=== PATIENT | female | born 1945 | race Caucasian/White ===

== ENCOUNTER 2020-08-02 14:34 | Inpatient (IN) | payer MEDICARE, BC ==
[2020-08-02] MEDS ORDERED: SODIUM CHLORIDE 0.9% 500 ML 500 ML IV STA (15:26)
[2020-08-02] MEDS ORDERED: MORPHINE SULFATE 4 MG/ML SYRINGE IV STA (15:26)
--- NOTE | 2020-08-02 15:26 | ED ---
General Adult HPI - General Chief complaint: ENT Stated complaint: sent from for infected parotid gland Time Seen by Provider: 08/02/20 14:54 Source: patient Mode of arrival: wheelchair Limitations: no limitations - History of Present Illness Initial comments: Dictation was produced using eOriginal dictation software. please excuse any grammatical, word or spelling errors. This patient was cared for during a federal and state declared state of emergency secondary to Covid 19 Chief Complaint: 75-year-old feel presents with a right facial pain History of Present Illness: Is 75-year-old female presents to the emergency department for right facial pain. Patient states she began having symptoms 48 hours ago. The day before she began experiencing facial symptoms she had anesthesia for a D&C. She did contact her primary care physician and was told that she may have a parotid infection. Patient has history of sinus cancer. Sh e denies any constitutional symptoms. She was told to come to the emergency department be admitted for IV anti biotics. Patient has history of hypertension. 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 The ROS documented in this emergency department record has been reviewed and confirmed by me. Those systems with pertinent positive or negative responses have been documented in the HPI. All other systems are other negative and/or noncontributory. PHYSICAL EXAM: General Impression: Alert and oriented x3, not in acute distress HEENT: Normocephalic atraumatic, extra-ocular movements intact, pupils equal and reactive to light bilaterally, mucous membranes moist, diffuse swelling to the external auditory canal the right ear, she does have some pain over the mastoid process, there is induration and palpatory tenderness with erythema to the right proximal mandibular area. There is no buccal discharge. No oral pharyngeal erythema Cardiovascular: Heart regular rate and rhythm Chest: Able to complete full sentences, no retractions, no tachypnea Abdomen: abdomen soft, non-tender, non-distended, no organomegaly Musculoskeletal: Pulses present and equal in all extremities, no peripheral edema Motor: no focal deficits noted Neurological: CN II-XII grossly intact, no focal motor or sensory deficits noted Skin: Intact with no visualized rashes Psych: Normal affect and mood ED course: 75-year-old female presents to the emergency department for right facial pain suspicious for her otitis. vital signs upon arrival shows oxygen saturation 92%, rest of vital signs within acceptable limits. His examination shows well-appearing female in no acute distress. Laboratory evaluation shows leukocytosis of 13.9. Neutrophils of 11.4. Coag panel within acceptable limits. Metabolic panel is within acceptable limits. Patient does report chronic history of multiple intubations and tracheostomies. She states that when she needs to get intubated she needs an awake intubation. Computed tomography scan of brain is unremarkable. CT soft tissue of the neck shows findings consistent with parotitis. Radiologist also mentions an abnormal appearance to the hypopharyngeal airway including thickened epiglottis and abnormal prevertebral soft tissue. We'll just states that it's uncertain if this finding is related to the patient's surgical history or if this is infectious spread. This is likely be a chronic issue given patient's medical history. She was questioned about this states that she's been intermittent multiple times and required tracheostomies. She does not have any abnormal phonation. She is not showing any signs of distress. She denies any difficulty swallowing, she has no stridor. She denies any neck pain. I did discuss patient case with labor gang supervisor who does not feel patient meets criteria for ICU admission for airway monitoring. ENT and infectious disease will be consulted. EKG interpretation: Ventricular rate 83, normal sinus rhythm,. 162, QRS 82, QTc 434. No DE prolongation, no QTC prolongation, no ST or T-wave changes noted. Note EKG for comparison. Overall, this EKG is unremarkable - Related Data Home Medications Medication Instructions Recorded Confirmed Aspirin EC [Ecotrin Low Dose] 81 mg PO DAILY 08/02/20 08/02/20 Cholecalciferol [Vitamin D3 (25 50 mcg PO DAILY 08/02/20 08/02/20 Mcg = 1000 Iu)] Cranberry Fruit Extract [Cranberry] 500 mg PO HS 08/02/20 08/02/20 Escitalopram [Lexapro] 20 mg PO HS 08/02/20 08/02/20 Furosemide [Lasix] 40 mg PO DAILY 08/02/20 08/02/20 Potassium Chloride 10 meq PO DAILY 08/02/20 08/02/20 Selenium 100 mcg PO HS 08/02/20 08/02/20 Zinc 50 mg PO HS 08/02/20 08/02/20 amLODIPine [Norvasc] 5 mg PO DAILY 08/02/20 08/02/20 Allergies Allergy/AdvReac Type Severity Reaction Status Date / Time oxycodone AdvReac Nausea & Verified 08/02/20 16:26 Vomiting Review of Systems ROS Statement: Those systems with pertinent positive or pertinent negative responses have been documented in the HPI. ROS Other: All systems not noted in ROS Statement are negative. Past Medical History Past Medical History: Cancer, Hypertension Additional Past Medical History / Comment(s): sinus cavity cancer, skin cancer History of Any Multi-Drug Resistant Organisms: None Reported Past Surgical History: Section, Cholecystectomy Additional Past Surgical History / Comment(s): eye surgery Past Psychological History: Depression Smoking Status: Never smoker Past Alcohol Use History: None Reported Past Drug Use History: None Reported General Exam Limitations: no limitations Course Vital Signs 08/02/20 14:41 Temperature 98.5 F Pulse Rate 80 Respiratory 20 Rate Blood Pressure 181/77 O2 Sat by Pulse 92 L Oximetry Medical Decision Making - Lab Data Result diagrams: 08/02/20 15:18 08/02/20 15:18 Lab Results 08/02/20 08/02/20 08/02/20 Range/Units 15:18 15:18 15:18 WBC 13.9 H (3.8-10.6) k/uL RBC 5.16 (3.80-5.40) m/uL Hgb 15.3 (11.4-16.0) gm/dL Hct 49.1 H (34.0-46.0) % MCV 95.1 (80.0-100.0) fL MCH 29.6 (25.0-35.0) pg MCHC 31.1 (31.0-37.0) g/dL RDW 14.7 (11.5-15.5) % Plt Count 183 (150-450) k/uL MPV 8.1 Neutrophils % 82 % Lymphocytes % 10 % Monocytes % 5 % Eosinophils % 1 % Basophils % 0 % Neutrophils # 11.4 H (1.3-7.7) k/uL Lymphocytes # 1.4 (1.0-4.8) k/uL Monocytes # 0.8 (0-1.0) k/uL Eosinophils # 0.2 (0-0.7) k/uL Basophils # 0.0 (0-0.2) k/uL PT 10.2 (9.0-12.0) sec INR 0.9 (<1.2) APTT 20.6 L (22.0-30.0) sec Sodium 138 (137-145) mmol/L Potassium 4.6 (3.5-5.1) mmol/L Chloride 101 (98-107) mmol/L Carbon Dioxide 29 (22-30) mmol/L Anion Gap 8 mmol/L BUN 15 (7-17) mg/dL Creatinine 0.80 (0.52-1.04) mg/dL Est GFR (CKD-EPI)AfAm 83 (>60 ml/min/1.73 sqM) Est GFR (CKD-EPI)NonAf 72 (>60 ml/min/1.73 sqM) Glucose 109 H (74-99) mg/dL Calcium 9.1 (8.4-10.2) mg/dL Disposition Clinical Impression: Parotitis Disposition: ADMITTED IP TO THIS HOSP Condition: Fair Referrals: Len Tran MD [Primary Care Provider] - 1-2 days Decision Time: 17:57
[2020-08-02 15:34] LABS: Basophils % (A) 0 %; Eosinophils # (A) 0.2 k/uL (0-0.7); Eosinophils % (A) 1 %; HCT 49.1 % (34.0-46.0); HGB 15.3 gm/dL (11.4-16.0); Lymphocytes # (A) 1.4 k/uL (1.0-4.8); Lymphocytes % (A) 10 %; MCH 29.6 pg (25.0-35.0); MCHC 31.1 g/dL (31.0-37.0); MCV 95.1 fL (80.0-100.0); Mean Platelet Volume 8.1; Monocytes # (A) 0.8 k/uL (0-1.0); Monocytes % (A) 5 %; Neutrophils # (A) 11.4 k/uL (1.3-7.7); Neutrophils % (A) 82 %; Platelet Count 183 k/uL (150-450); RBC 5.16 m/uL (3.80-5.40); RDW 14.7 % (11.5-15.5); WBC 13.9 k/uL (3.8-10.6)
[2020-08-02 15:52] LABS: INR 0.9 (<1.2); Prothrombin Time 10.2 sec (9.0-12.0)
[2020-08-02 15:55] LABS: Partial Thromboplastin Time 20.6 sec (22.0-30.0)
[2020-08-02 15:57] LABS: Calcium 9.1 mg/dL (8.4-10.2); Potassium 4.6 mmol/L (3.5-5.1)
--- NOTE | 2020-08-02 16:48 | CT ---
EXAMINATION TYPE: CT brain wo con DATE OF EXAM: 08/02/2020 HISTORY: right side facial swelling, suspect parotid infection, headache. CT DLP: 1068 mGycm. Automated Exposure Control for Dose Reduction was Utilized. TECHNIQUE: CT scan of the head is performed without contrast. COMPARISON: None. FINDINGS: There is no acute intracranial hemorrhage or midline shift identified. There is mild diff use ventricular and sulcal prominence consistent with diffuse age-related cerebral atrophy. There is mild low-attenuation in the periventricular white matter consistent with chronic small vessel ischem ic change. There are left frontal craniotomy changes with multiple surgical clips from left parotid s urgical resection. Left globe and lateral an inferior caripo at the surgically resected. There is fat tissue presumed implanted tissue at this level noted. Defect or resection of superior orbital wall wi th encephalocele into the superior orbit remnant coronal image 20 noted. IMPRESSION: No acute intracranial hemorrhage or midline shift. There is mild diffuse age-related ce rebral atrophy and chronic small vessel ischemic change noted.
--- NOTE | 2020-08-02 16:56 | CT ---
EXAMINATION TYPE: CT soft tissue neck w con DATE OF EXAM: 08/02/2020 HISTORY: right side facial swelling COMPARISON: NONE CT DLP: 450.2 mGycm. Automated Exposure Control for Dose Reduction was Utilized. TECHNIQUE: CT scan of the neck is performed with IV Contrast, patient injected with 100 mL of Isovue 300, axial images are obtained, coronal and sagittal reformatted images are reviewed. FINDINGS: Airway: There is thickening of the epiglottis. There is abnormal prevertebral fluid and soft tissue c ausing anterior hypopharyngeal airway narrowing and deviation. Thyroid gland within normal limits. Zhanna ng apices are clear. Parotid/submandibular glands: Submandibular glands symmetric and within normal limits. Left parotid g land surgically absent with clips. Anterior fat tissue consistent with surgical implant noted. Right parotid gland shows enlargement with ill-defined fluid and fat stranding. There is mild to moderate f luid and fat stranding extending inferiorly into the submandibular region with additional involvement in the right supraclavicular region and upper thorax anteriorly noted. No well-formed fluid collecti on or abscess identified. Carotid/Vascular Structures: Tortuous medial retropharyngeal course to the bilateral carotid arteries . Moderate to severe calcified plaque at carotid bulb extends into proximal internal carotid arteries without significant stenosis clearly seen. Osseous Structures: Levoconvex scoliotic curvature. Severe multilevel spurring the beginning C5 level extending into the thoracic spine. Moderate multilevel disc space narrowing in the cervical spine. M ultilevel uncovertebral facet degenerative changes in the cervical spine. Other: Prior resection of the left maxilla along with left zygomatic arch with metallic prosthesis. R esection of left globe and majority orbital carpio. Suboptimal evaluation of level of mild due to artifact from numerous crowns and cavitary fillings. Zhanna cent area right mandible axilla measures 37 could reflect active dental infection and source of patie nt's right-sided inflammation as there is bony breakthrough noted. IMPRESSION: Right-sided parotitis along with anterior inferior soft tissue infection spread or cellul itis noted. Findings could be related due to right mandibular active inflammation likely from dental cavity. Correlate clinically. Abnormal appearance to the hypopharyngeal airway including thickened ep iglottis and abnormal prevertebral soft tissue swelling. Uncertain if finding is related to patient's surgical history or infectious spread. No well-formed fluid collection or drainable abscess noted.
[2020-08-02] MEDS ORDERED: AMPICILLIN-SULBACTAM 3 GM in SODIUM CHLORIDE 0.9% 100 ML IVPB STA (17:16)
[2020-08-02] MEDS ORDERED: VANCOMYCIN IV PER PHARMACY 1 EACH MISC MISCELLANE PRN (17:16)
[2020-08-02] MEDS ORDERED: ACETAMINOPHEN TAB 325 MG TAB PO PRN (17:25)
[2020-08-02] MEDS ORDERED: NALOXONE 0.4 MG/ML 1 ML VIAL IV PRN (17:25)
[2020-08-02] MEDS ORDERED: SODIUM CHLORIDE 0.9% 1,000 ML IV SCH (17:30)
[2020-08-02] MEDS ORDERED: DEXAMETHASONE SOD PHOSPHATE 10 MG/ML 1 ML VIAL IV STA (17:43)
[2020-08-02] MEDS ORDERED: VANCOMYCIN 2,000 MG in SODIUM CHLORIDE 0.9% 500 ML 500 ML IVPB ONE (17:45)
[2020-08-02] MEDS: IPRATROPIUM-ALBUTEROL 3 ML NEB INHALATION SCH ×2 (21:59→23:05)
[2020-08-02] MEDS ORDERED: methylPREDNISolone SOD SUCCI 40 MG/ML 1 ML VIAL IV STA (22:41)
[2020-08-02] MEDS: FUROSEMIDE 40 MG TAB PO SCH (22:45)
[2020-08-03] MEDS: IPRATROPIUM-ALBUTEROL 3 ML NEB INHALATION SCH ×4 (07:17→19:15)
[2020-08-03] MEDS ORDERED: VANCOMYCIN 2,000 MG in SODIUM CHLORIDE 0.9% 500 ML 500 ML IVPB SCH (08:00)
[2020-08-03] MEDS: FUROSEMIDE 40 MG TAB PO SCH (08:41)
[2020-08-03] MEDS: amLODIPine 5 MG TAB PO SCH (08:41)
[2020-08-03] MEDS ORDERED: DOXYCYCLINE 100 MG CAP PO SCH (09:00)
[2020-08-03] MEDS ORDERED: NAPROXEN 250 MG TAB PO STA (11:00)
[2020-08-03] MEDS ORDERED: CLINDAMYCIN 600 MG in DEXTROSE 5% IN WATER 50 ML IVPB SCH ×2 (12:00)
--- NOTE | 2020-08-03 12:31 | P.GSCN ---
History of Present Illness Consult date: 08/03/20 Reason for Consult: Right neck face swelling Requesting physician: Sebastian Salmon History of present illness: This is a 75-year-old female who developed right neck swelling last Thursday. She saw her primary care physician and was referred to clear and emergency room for evaluation and treatment. She points to the right parotid to the area of the swelling. He tells me that is quite tender to touch and the overlying areas erythematous. She has been relatively dehydrated. She has no signs of Covid. She's had extensive left maxillary and orbital surgery for malignancy. She's had over 20 surgeries and has had a maxillectomy and orbital exoneration on the left side. I did review the results of the patient's CAT scan demonstrating a left-sided facial prosthesis and middle insertions for the zygomatic arch from her multiple previous surgeries. The right parotid from the swollen. He did not see any dental abnormalities per CT report. Right parotid is quite swollen Computed tomography scan and the. Parotid area is quite edematous. Review of Systems - Constitutional Reports as per HPI - EENT EENT Comment(s): Multiple surgeries left face with orbital exoneration and maxillectomy. Eyes: bilateral as per HPI (Patient had a left-sided orbital exoneration and a left-sided maxillectomy.) - Cardiovascular Reports as per HPI - Respiratory Reports as per HPI - Gastrointestinal Reports as per HPI - Genitourinary Genitourinary: Reports as per HPI Menstruation: Reports as per HPI - Musculoskeletal Reports as per HPI - Integumentary Reports as per HPI - Neurological Reports as per HPI - Psychiatric Reports as per HPI - Endocrine Reports as per HPI - Hematologic/Lymphatic Reports as per HPI - Allergic/Immunologic Reports as per HPI Past Medical History Past Medical History: Cancer, Hypertension Additional Past Medical History / Comment(s): sinus cavity cancer, skin cancer, History of Any Multi-Drug Resistant Organisms: None Reported Past Surgical History: Section, Cholecystectomy Additional Past Surgical History / Comment(s): eye surgery, D&C on 07/30/20 Past Psychological History: Depression Smoking Status: Former smoker Past Alcohol Use History: None Reported Past Drug Use History: None Reported - Past Family History Mother Family Medical History: Cancer Additional Family Medical History / Comment(s): breast CA Medications and Allergies Home Medications Medication Instructions Recorded Confirmed Type Aspirin EC [Ecotrin Low Dose] 81 mg PO DAILY 08/02/20 08/02/20 History Cholecalciferol [Vitamin D3 (25 50 mcg PO DAILY 08/02/20 08/02/20 History Mcg = 1000 Iu)] Cranberry Fruit Extract [Cranberry] 500 mg PO HS 08/02/20 08/02/20 History Escitalopram [Lexapro] 20 mg PO HS 08/02/20 08/02/20 History Furosemide [Lasix] 40 mg PO DAILY 08/02/20 08/02/20 History Potassium Chloride 10 meq PO DAILY 08/02/20 08/02/20 History Selenium 100 mcg PO HS 08/02/20 08/02/20 History Zinc 50 mg PO HS 08/02/20 08/02/20 History amLODIPine [Norvasc] 5 mg PO DAILY 08/02/20 08/02/20 History Allergies Allergy/AdvReac Type Severity Reaction Status Date / Time oxycodone AdvReac Nausea & Verified 08/02/20 16:26 Vomiting Surgical - Exam Osteopathic Statement: *. No significant issues noted on an osteopathic structural exam other than those noted in the History and Physical/Consult. Vital Signs Temp Pulse Resp BP Pulse Ox 98.5 F 80 20 181/77 92 L 08/02/20 14:41 08/02/20 14:41 08/02/20 14:41 08/02/20 14:41 08/02/20 14:41 - General obese - Eyes Left orbital exoneration - ENT Patient has a large swollen and tender right parotid. She no signs of any secretions from Stensen's duct on the right side in an attempt to milk the gland. The patient has extensive left facial surgery with orbital exoneration and maxillectomy from a previous cancer. - Neck Shotty lymphadenopathy is palpable - Respiratory normal expansion, normal respiratory effort - Cardiovascular Rhythm: regular - Integumentary no rash - Neurologic normal coordination, normal sensation - Musculoskeletal normal gait, normal posture - Psychiatric oriented to time, oriented to person, oriented to place, speech is normal Results - Labs 08/02/20 15:18 08/03/20 06:37 Abnormal Lab Results - Last 24 Hours (Table) 08/02/20 08/02/20 08/02/20 Range/Units 15:18 15:18 15:18 WBC 13.9 H (3.8-10.6) k/uL Hct 49.1 H (34.0-46.0) % Neutrophils # 11.4 H (1.3-7.7) k/uL APTT 20.6 L (22.0-30.0) sec Glucose 109 H (74-99) mg/dL Diabetes panel 08/02/20 08/03/20 Range/Units 15:18 06:37 Sodium 138 (137-145) mmol/L Potassium 4.6 (3.5-5.1) mmol/L Chloride 101 (98-107) mmol/L Carbon Dioxide 29 (22-30) mmol/L BUN 15 (7-17) mg/dL Creatinine 0.80 0.88 (0.52-1.04) mg/dL Glucose 109 H (74-99) mg/dL Calcium 9.1 (8.4-10.2) mg/dL Calcium panel 08/02/20 Range/Units 15:18 Calcium 9.1 (8.4-10.2) mg/dL Pituitary panel 08/02/20 08/03/20 Range/Units 15:18 06:37 Sodium 138 (137-145) mmol/L Potassium 4.6 (3.5-5.1) mmol/L Chloride 101 (98-107) mmol/L Carbon Dioxide 29 (22-30) mmol/L BUN 15 (7-17) mg/dL Creatinine 0.80 0.88 (0.52-1.04) mg/dL Glucose 109 H (74-99) mg/dL Calcium 9.1 (8.4-10.2) mg/dL Adrenal panel 08/02/20 08/03/20 Range/Units 15:18 06:37 Sodium 138 (137-145) mmol/L Potassium 4.6 (3.5-5.1) mmol/L Chloride 101 (98-107) mmol/L Carbon Dioxide 29 (22-30) mmol/L BUN 15 (7-17) mg/dL Creatinine 0.80 0.88 (0.52-1.04) mg/dL Glucose 109 H (74-99) mg/dL Calcium 9.1 (8.4-10.2) mg/dL Assessment and Plan Plan: This patient has a right parotid infection from her relative dehydration state. I recommended that she increase her fluid consumption. Combination of Unasyn and vancomycin should work well for her and she tells me that she is already feeling slightly better after 1 dose of antibiotics. Dehydration appear to be the etiology for her parotitis. She is to drink more fluids. She is to continue on outpatient antibiotics after discharge and Augmentin would be a good choice. While in the hospital Unasyn and vancomycin is my preferred choice but will defer to infectious disease. She is to follow up with me in the office as needed. Time with Patient: Greater than 30
[2020-08-03] MEDS: ENOXAPARIN 40 MG/0.4 ML SYRINGE SQ SCH (12:54)
[2020-08-03] MEDS: SODIUM CHLORIDE 0.9% 1,000 ML IV SCH ×2 (12:55→17:29)
[2020-08-03] MEDS: NAPROXEN 250 MG TAB PO SCH ×2 (16:48→21:02)
[2020-08-03] MEDS: AMPICILLIN-SULBACTAM 3 GM in SODIUM CHLORIDE 0.9% 100 ML IVPB SCH (17:32)
[2020-08-03] MEDS ORDERED: NON FORMULARY DRUG (Selenium [Selenium] 100 MCG Tablet) PO SCH (21:00)
[2020-08-03] MEDS ORDERED: ESCITALOPRAM 20 MG TAB PO SCH (21:00)
[2020-08-03] MEDS ORDERED: ZINC SULFATE 220 MG CAP PO SCH (21:00)
--- NOTE | 2020-08-03 21:00 | P.HPIM ---
History of Present Illness H&P Date: 08/03/20 Chief Complaint: Swelling right face History of presenting complaint: This is a pleasant [address] Len Tran. Chronic stable medical conditions include hypertension, sinus cancer treated by Dr. Valdez and he noticed to [place] with radiation treatment initially in 1989. Patient is close to 19 surgeries last one being about 2 years ago. 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 Patient had a MRI in March 2020 that did not show any recurrence. Patient now presents with swelling of the area below the ear in the adjoining jaw for 4 days. Low-grade fever. Painful swelling. No trouble eating as such. Patient is given IV antibiotics in the ER arrest for this patient in the morning swelling discectomy started to come down. No headaches. No change in vision in the right eye. Review of systems: GEN.: Fever, tired EYES: Absence of left eye HEENT: As above NECK: None RESPIRATORY: None CARDIOVASCULAR: None GASTROINTESTINAL: None GENITOURINARY: None MUSCULOSKELETAL: Joint pains LYMPHATICS: None HEMATOLOGICAL: None PSYCHIATRY: None NEUROLOGICAL: Cannot see out of the left eye Past medical history to include: Hypertension, sinus cavity cancer with radiation treatment 1989 at least 19 surgeries last one being in 2 years ago. MRI in March 2020 was negative, depression Social history: Lives alone. Smoked a pack a day for 40 years stopped 20 years ago. No alcohol. Physical examination: VITAL SIGNS: 97.6, 68, 16, 143 x 67, 92% on 4 L GENERAL: BMI 42.7, laying in bed, awake. EYES: [Left eye is not present l. HEENT: External appearance of nose and ears normal, swelling over the angle of the right mandible tender, but signs of local inflammation. NECK: JVD not raised; masses not palpable. HEART: First and second heart sounds are normal; no edema. LUNGS: Respiratory rate normal; clear to auscultation. ABDOMEN: Soft, nontender, liver spleen not palpable, no masses palpable. PSYCH: Alert and oriented x3; mood and affect normal. NEUROLOGICAL: Cranial nerves grossly intact; no facial asymmetry, power and sensation grossly intact, patch over the left eye. LYMPHATICS: No lymph nodes palpable in the axilla and neck INVESTIGATIONS, reviewed in the clinical context: WBC 13.9 hemoglobin 15.3 platelets 183 potassium 4.6 creatinine 0.8 Coronavirus [PCR]: Not detected Assessment and plan: -Acute right parotitis, likely from dehydration, likely bacterial Patient currently on IV Unasyn. Naproxen as an anti-inflammatory 2. IV fluids. 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 Questions answered. IV antibiotics, IV fluids. Pain swelling is started to come down. Hopefully discharge in 24 hours Past Medical History Past Medical History: Cancer, Hypertension Additional Past Medical History / Comment(s): sinus cavity cancer, skin cancer, History of Any Multi-Drug Resistant Organisms: None Reported Past Surgical History: Section, Cholecystectomy Additional Past Surgical History / Comment(s): eye surgery, D&C on 07/30/20 Past Psychological History: Depression Smoking Status: Former smoker Past Alcohol Use History: None Reported Past Drug Use History: None Reported - Past Family History Mother Family Medical History: Cancer Additional Family Medical History / Comment(s): breast CA Medications and Allergies Home Medications Medication Instructions Recorded Confirmed Type Aspirin EC [Ecotrin Low Dose] 81 mg PO DAILY 08/02/20 08/02/20 History Cholecalciferol [Vitamin D3 (25 50 mcg PO DAILY 08/02/20 08/02/20 History Mcg = 1000 Iu)] Cranberry Fruit Extract [Cranberry] 500 mg PO HS 08/02/20 08/02/20 History Escitalopram [Lexapro] 20 mg PO HS 08/02/20 08/02/20 History Furosemide [Lasix] 40 mg PO DAILY 08/02/20 08/02/20 History Potassium Chloride 10 meq PO DAILY 08/02/20 08/02/20 History Selenium 100 mcg PO HS 08/02/20 08/02/20 History Zinc 50 mg PO HS 08/02/20 08/02/20 History amLODIPine [Norvasc] 5 mg PO DAILY 08/02/20 08/02/20 History Allergies Allergy/AdvReac Type Severity Reaction Status Date / Time oxycodone AdvReac Nausea & Verified 08/02/20 16:26 Vomiting Physical Exam Vitals: Vital Signs Temp Pulse Pulse Resp BP BP Pulse Ox 08/03/20 08:09 97.6 F 68 16 143/67 92 L 08/03/20 07:28 84 16 08/03/20 07:18 84 16 94 L 08/03/20 06:14 78 17 94 L 08/03/20 01:43 97.9 F 74 20 137/65 93 L 08/02/20 23:12 88 08/02/20 23:08 78 08/02/20 23:02 76 20 156/76 94 L 08/02/20 20:45 84 20 183/80 92 L 08/02/20 20:30 84 20 08/02/20 20:25 98.6 F 83 24 172/83 85 L 08/02/20 20:20 98.6 F 85 L 08/02/20 19:18 57 L 16 129/82 99 08/02/20 14:41 98.5 F 80 20 181/77 92 L Intake and Output 08/02/20 08/03/20 08/03/20 22:59 06:59 14:59 Intake Total 540 210 Output Total 800 Balance 540 -590 Intake: Intake, IV Titration 540 160 Amount Sodium Chloride 0.9% 1, 40 160 000 ml @ 20 mls/hr IV . Q24H [facility] Rx#:[id number] Vancomycin 2,000 mg In 500 Sodium Chloride 0.9% 500 ml 500 ml @ 167 mls/hr IVPB ONCE ONE Rx#: [id number] Oral 50 Output: Urine 800 Other: # Voids 1 1 Weight 116.4 kg Results CBC & Chem 7: 08/02/20 15:18 08/03/20 06:37 Labs: Abnormal Lab Results - Last 24 Hours (Table) 08/02/20 08/02/20 08/02/20 Range/Units 15:18 15:18 15:18 WBC 13.9 H (3.8-10.6) k/uL Hct 49.1 H (34.0-46.0) % Neutrophils # 11.4 H (1.3-7.7) k/uL APTT 20.6 L (22.0-30.0) sec Glucose 109 H (74-99) mg/dL Thrombosis Risk Factor Assmnt - Choose All That Apply Any of the Below Risk Factors Present?: Yes Each Risk Factor Represents 3 Points: Family history of DVT/PE Thrombosis Risk Factor Assessment Total Risk Factor Score: 3 Thrombosis Risk Factor Assessment Level: Moderate Risk
[2020-08-03] MEDS: methylPREDNISolone SOD SUCCI 40 MG/ML 1 ML VIAL IV SCH (21:02)
--- NOTE | 2020-08-03 22:31 | CONS ---
CONSULTATION DATE OF SERVICE: 08/03/2020 REASON FOR CONSULTATION: Right facial pain. HISTORY OF PRESENT ILLNESS: The patient is a 75-year-old female who started having a problem with right facial area pain, swelling and redness about 2 days before presentation to the hospital. The patient described the pain to be more sharp in nature with intensity almost 10/10; very severe with associated swelling and redness and feeling to the right side of the . The patient was evaluated by the primary care physician. With concern for parotitis, the patient was advised to go to the hospital. On presentation to the hospital the patient was afebrile. The patient did have a white count of 13.9 with a left shift. Creatinine was normal. Gomez PCR was negative. The patient did have a soft tissue neck CT with concern for right-sided parotitis along with anterior inferior soft tissue; infection spread or cellulitis noted. Findings could be related to a right mandibular active inflammation, likely from a dental cavity, but no drainable abscess. The patient was started on vancomycin and Unasyn, subsequently switched over to clindamycin. Infectious Disease was consulted for further management of antibiotic therapy. REVIEW OF SYSTEMS: Positive points have been mentioned in the HPI. Rest of the systems are negative. PAST MEDICAL HISTORY: Sinus cavity cancer, skin cancer, hypertension. PAST SURGICAL HISTORY: , cholecystectomy and eye surgery. SOCIAL HISTORY: No history of smoking, drinking or drug use. FAMILY HISTORY: No pertinent findings noticed. ALLERGIES: OXYCODONE. MEDICATIONS: The patient is currently on Tylenol, DuoNeb, Norvasc, clindamycin, Lovenox, Lexapro, Lasix, Solu-Medrol, Narcan, naproxen, zinc sulfate and IV fluid. PHYSICAL EXAMINATION: Blood pressure 110/68 with a pulse of 70, temperature 97.8. She is 93% on 2 L nasal cannula. General description is an elderly female lying in bed in no distress. HEENT: Examination shows right-sided parotid area swelling, induration, redness and warmth. RESPIRATORY SYSTEM: Unlabored breathing. Clear to auscultation anteriorly. HEART: S1, S2. Regular rate and rhythm. ABDOMEN: Soft. No tenderness. No guarding or rigidity. EXTREMITIES: No edema of the feet. SKIN EXAMINATION: No rash or mass palpable. Neurologically the patient is awake, alert, oriented x3. Mood and affect normal. LABS: Hemoglobin 15.3, white count of 13.9. BUN of 15, creatinine 0.8. CT report as mentioned above. DIAGNOSTIC IMPRESSION AND PLAN: Patient admitted to hospital with right-sided facial swelling and redness with evidence of parotitis and cellulitis. No evidence of any drainable abscess. More likely from the oral sangeeta of the oral cavity. Clinically doubt MRSA infection. PLAN: 1. Discontinue clindamycin. 2. Start the patient on Unasyn 3 grams q.6 hours. 3. We will follow clinical condition and culture to further adjust medication if needed. Thank you for this consultation. Will follow this patient along with you. MMODL / IJN: [id number] /
[2020-08-04] MEDS: NAPROXEN 250 MG TAB PO SCH (00:03)
[2020-08-04] MEDS: AMPICILLIN-SULBACTAM 3 GM in SODIUM CHLORIDE 0.9% 100 ML IVPB SCH ×3 (00:04→12:12)
[2020-08-04] MEDS: methylPREDNISolone SOD SUCCI 40 MG/ML 1 ML VIAL IV SCH ×2 (06:29→13:23)
[2020-08-04 09:07] VITALS: BP 167/80; RESP 20; TEMP 97.7
[2020-08-04] MEDS: amLODIPine 5 MG TAB PO SCH (09:07)
[2020-08-04] MEDS: FUROSEMIDE 40 MG TAB PO SCH (09:07)
[2020-08-04] MEDS: ENOXAPARIN 40 MG/0.4 ML SYRINGE SQ SCH (09:08)
[2020-08-04] MEDS: IPRATROPIUM-ALBUTEROL 3 ML NEB INHALATION SCH ×2 (09:34→11:49)
[2020-08-04 13:34] VITALS: PULSE 72
--- NOTE | 2020-08-04 23:51 | P.DS ---
Providers Date of admission: 08/02/20 17:25 Expected date of discharge: 08/04/20 Attending physician: Sebastian Salmon Consults: 08/02/20 17:24 Consult Physician Routine Consulting Provider: Fabian Cardenas Consult Reason/Comments: parotitis Do you want consulting provider notified?: Yes Consult Physician Routine Consulting Provider: Mary Bower Consult Reason/Comments: parotitis Do you want consulting provider notified?: Yes Primary care physician: Len [facility] Course: Chief Complaint: Swelling right face History of presenting complaint: This is a pleasant [address] Len Tran. Chronic stable medical conditions include hypertension, sinus cancer treated by Dr. Valdez and he noticed to [place] with radiation treatment initially in 1989. Patient is close to 19 surgeries last one being about 2 years ago. 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 Patient had a MRI in March 2020 that did not show any recurrence. Patient now presents with swelling of the area below the ear in the adjoining jaw for 4 days. Low-grade fever. Painful swelling. No trouble eating as such. Patient is given IV antibiotics in the ER arrest for this patient in the morning swelling discectomy started to come down. No headaches. No change in vision in the right eye. Admitted with acute parotitis. Given IV fluids IV Unasyn. Responded well. Seen by Dr. Loredo from ENT. An ID. Today: Doing much better. Pain swelling very significant improved. Eating well. No fever no chills. Care was discussed with the patient and daughter the bedside. Questions answered. Patient will finish her course of Augmentin. Consultation: Dr. Loredo from ENT Dr. Bower from ID Past medical history to include: Hypertension, sinus cavity cancer with radiation treatment 1989 at least 19 surgeries last one being in 2 years ago. MRI in March 2020 was negative, depression Social history: Lives alone. Smoked a pack a day for 40 years stopped 20 years ago. No alcohol. Physical examination: VITAL SIGNS: 97.6, 68, 16, 143 x 67, 92% on 4 L GENERAL: BMI 42.7, laying in bed, awake. EYES: [Left eye absent. HEENT: External appearance of nose and ears normal, much improved-swelling over the angle of the right mandible tender, NECK: JVD not raised; masses not palpable. HEART: First and second heart sounds are normal; no edema. LUNGS: Respiratory rate normal; clear to auscultation. ABDOMEN: Soft, nontender, liver spleen not palpable, no masses palpable. PSYCH: Alert and oriented x3; mood and affect normal. INVESTIGATIONS, reviewed in the clinical context: WBC 13.9 hemoglobin 15.3 platelets 183 potassium 4.6 creatinine 0.8 Coronavirus [PCR]: Not detected Assessment and plan: -Acute right parotitis, likely from dehydration, likely bacterial Patient currently on IV Unasyn. Naproxen as an anti-inflammatory 2. IV fluids. Patient seen by Dr. Loredo. 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 -Essential hypertension Continue with Norvasc -Depression Continue with Lexapro Disposition: Home Patient Condition at Discharge: Fair Plan - Discharge Summary Discharge Rx Participant: Yes New Discharge Prescriptions: New Budesonide/Formoterol Fumarate [Symbicort 80-4.5 Mcg Inhaler] 1 puff INHALATION BID #1 inhaler Albuterol Inhaler [Ventolin Hfa Inhaler] 1 puff INHALATION TID #1 puff Amoxic-Pot Clav 875-125Mg [Augmentin 875-125] 1 tab PO Q12HR #10 tab predniSONE 10 mg PO DAILY #30 tab Continue Zinc 50 mg PO HS Furosemide [Lasix] 40 mg PO DAILY Cholecalciferol [Vitamin D3 (25 Mcg = 1000 Iu)] 50 mcg PO DAILY Aspirin EC [Ecotrin Low Dose] 81 mg PO DAILY Cranberry Fruit Extract [Cranberry] 500 mg PO HS Selenium 100 mcg PO HS Potassium Chloride 10 meq PO DAILY amLODIPine [Norvasc] 5 mg PO DAILY Escitalopram [Lexapro] 20 mg PO HS Discharge Medication List Aspirin EC [Ecotrin Low Dose] 81 mg PO DAILY 08/02/20 [History] Cholecalciferol [Vitamin D3 (25 Mcg = 1000 Iu)] 50 mcg PO DAILY 08/02/20 [History] Cranberry Fruit Extract [Cranberry] 500 mg PO HS 08/02/20 [History] Escitalopram [Lexapro] 20 mg PO HS 08/02/20 [History] Furosemide [Lasix] 40 mg PO DAILY 08/02/20 [History] Potassium Chloride 10 meq PO DAILY 08/02/20 [History] Selenium 100 mcg PO HS 08/02/20 [History] Zinc 50 mg PO HS 08/02/20 [History] amLODIPine [Norvasc] 5 mg PO DAILY 08/02/20 [History] Albuterol Inhaler [Ventolin Hfa Inhaler] 1 puff INHALATION TID #1 puff 08/04/20 [Rx] Amoxic-Pot Clav 875-125Mg [Augmentin 875-125] 1 tab PO Q12HR #10 tab 08/04/20 [Rx] Budesonide/Formoterol Fumarate [Symbicort 80-4.5 Mcg Inhaler] 1 puff INHALATION BID #1 inhaler 08/04/20 [Rx] predniSONE 10 mg PO DAILY #30 tab 08/04/20 [Rx] Follow up Appointment(s)/Referral(s): Len Tran MD [Primary Care Provider] - 1-2 days Activity/Diet/Wound Care/Special Instructions: incentive spirometry - for home heart healthy diet as tolerated activity as tolerated Use incentive spirometery as instructed at home especially after using inhalers follow up with your Physician as directed. Call your Dr with return or worsening of the symptoms that brought you here or any concerns. Last received and respiratory treatment at about 1200. Last received steroid at 1:30pm Discharge Disposition: HOME SELF-CARE
--- NOTE | 2020-09-03 05:51 | CDI ---
Documentation Clarification Form Date: 09/03/2020 05:27:00 AM From: Marii Miranda Phone: If you have a question about this query, please contact Ruma Andrews, Booking Manager at [phone] between 8am and 5pm. Admit Date: 08/02/2020 05:25:00 PM Patient Name: Meliza Ness Visit Number: [id number] Discharge Date: 08/04/2020 01:48:00 PM ATTENTION: The Clinical Documentation Specialists (CDI) and [facility] Coding Staff appreciate your assistance in clarifying documentation. Please respond to the clarification below the line at the bottom and electronically sign. The CDI & [facility] Coding staff will review the response and follow-up if needed. Please note: Queries are made part of the Legal Health Record. If you have any questions, please contact the author of this message via ITS. Dr. Sebastian Salmon Patient has a documented BMI of 42.7. There is no documentation of obesity Additional clarification is requested. History/Risk Factors: Patient has history of malignant neoplasm nasal cavities Clinical Indicators: Patients weight is 116.4 kg Patients height is 5.5 inches Calculated BMI is 42.7 without an associated diagnosis Nutritional Education Dietary Consult Please clarify if patients BMI indicates an additional diagnosis: [ ] Overweight [ ] Obesity, Class 1 [ ] Obesity, Class 2 [ ] Morbid (Extreme) (severe) obesity [ ] No additional diagnosis/not clinically significant [ ] Other, please specify ____ [ ] Unable to determine Reference: NIH Classification for BMI Overweight BMI 2529.9 Obesity (Class 1) BMI 3034.9 Obesity (Class 2) BMI 3539.9 Morbid (Extreme) (severe) obesity BMI =40 _Morbid obesity BMI 42.7 MTDD
== END 2020-08-04 13:48 | disposition home or self-care (01) | DRG 155 ==
LOC: EC 14:34 → 6PED 17:25
PROVIDERS: ADMIT Hospitalist; ATTEND Hospitalist
DX: K11.21 Acute sialoadenitis (principal); Z68.41 Body mass index [BMI] 40.0-44.9, adult; E86.0 Dehydration; F32.9 Major depressive disorder, single episode, unspecified; I10 Essential (primary) hypertension; Z79.82 Long term (current) use of aspirin; Z79.899 Other long term (current) drug therapy; Z80.3 Family history of malignant neoplasm of breast; Z85.22 Personal history of malignant neoplasm of nasal cavities, middle ear, and accessory sinuses; Z85.828 Personal history of other malignant neoplasm of skin; Z87.891 Personal history of nicotine dependence; Z92.3 Personal history of irradiation; Z20.822 Contact with and (suspected) exposure to COVID-19; Z90.49 Acquired absence of other specified parts of digestive tract; Z90.01 Acquired absence of eye; Z90.09 Acquired absence of other part of head and neck; E66.01 Morbid (severe) obesity due to excess calories
CPT/HCPCS: 36415; 70450; 70491; 80048; 82565; 83605; 85025; 85610; 85730; 87040; 87635; 93005; 94640; 94760; 96361; 96374; 99285

== ENCOUNTER 2021-07-18 06:01 | Day surgery (SDC) | payer MEDICARE, BC ==
[2021-07-16 09:42] VITALS: BMI 41.5
[~2021-07-18 06:01] MED LIST: ALPRAZolam 0.25 MG TAB PO PRN; ALPRAZolam 0.5 MG TAB PO PRN; ASPIRIN 325 MG TAB PO ONE; HEPARIN SODIUM,PORCINE 10,000 UNIT in SODIUM CHLORIDE 0.9% 1,000 ML IRRIGATION PRN; HEPARIN SODIUM,PORCINE 2,500 UNIT in SODIUM CHLORIDE 0.9% 250 ML IRRIGATION PRN; NITROGLYCERIN SL TABS 0.4 MG TAB SUBLINGUAL PRN; SODIUM CHLORIDE 0.9% 1,000 ML in EMPTY BAG 1 BAG IV SCH
[2021-07-18] MEDS ORDERED: SODIUM CHLORIDE 0.9% 1,000 ML IV ONE (06:17)
[2021-07-18 06:48] LABS: Basophils % (A) 0 %; Eosinophils # (A) 0.2 k/uL (0-0.7); Eosinophils % (A) 4 %; HGB 17.7 gm/dL (11.4-16.0); Hypochromasia Slight; Lymphocytes # (A) 1.6 k/uL (1.0-4.8); Lymphocytes % (A) 25 %; MCH 30.5 pg (25.0-35.0); MCHC 31.2 g/dL (31.0-37.0); MCV 97.7 fL (80.0-100.0); Mean Platelet Volume 8.8; Monocytes # (A) 0.4 k/uL (0-1.0); Monocytes % (A) 6 %; Neutrophils % (A) 62 %; Platelet Count 176 k/uL (150-450); WBC 6.4 k/uL (3.8-10.6)
[2021-07-18 06:50] VITALS: TEMP 97.6
[2021-07-18 06:51] LABS: HCT 56.6 % (34.0-46.0)
[2021-07-18 07:12] LABS: Calcium 9.1 mg/dL (8.4-10.2)
[2021-07-18] MEDS ORDERED: VERAPAMIL 2.5 MG/ML 2 ML AMP ONE (07:16)
[2021-07-18] MEDS ORDERED: LIDOCAINE 1% INJ 10MG/ML (20 ML MDV) ONE (07:16)
[2021-07-18] MEDS ORDERED: fentaNYL (PF) 50 MCG/ML 2 ML AMP ONE (07:35)
[2021-07-18] MEDS ORDERED: MIDAZOLAM 2 MG/2 ML VIAL IV ONE (07:52)
[2021-07-18] MEDS ORDERED: fentaNYL (PF) 50 MCG/ML 2 ML AMP IV ONE (07:54)
[2021-07-18] MEDS ORDERED: LIDOCAINE 1% INJ 10MG/ML (20 ML MDV) SQ ONE (07:55)
[2021-07-18] MEDS ORDERED: VERAPAMIL SYRINGE (5 MG/10 ML) INTRAARTER ONE (08:00)
[2021-07-18] MEDS ORDERED: HEPARIN SODIUM 1,000 UN/ML (10ML VL) ONE (08:16)
[2021-07-18] MEDS ORDERED: HEPARIN SODIUM 1,000 UN/ML (10ML VL) IV ONE (08:21)
[2021-07-18 08:24] LABS: O2 Sat Blood Gas 86.1 %
[2021-07-18 08:28] LABS: O2 Sat Blood Gas 62.9 %
[2021-07-18] MEDS ORDERED: IOPAMIDOL-370 125ML BTL INJ ONE (08:28)
[2021-07-18 08:36] LABS: O2 Sat Blood Gas 65.9 %
[2021-07-18 15:42] VITALS: RESP 16
[2021-07-18 15:51] VITALS: BP 151/65; PULSE 60
--- NOTE | 2021-07-18 21:29 | P.CARDCATH ---
Description of Procedure: PROCEDURES PERFORMED: Left heart catheterization, right heart catheterization, bilateral coronary angiography INDICATION: Abnormal stress test, dyspnea, hypoxia CONSENT:I have discussed the risks, benefits and alternative therapies for the above-mentioned procedure and for both sedation/analgesia as well as necessary blood product administration, if indicated, as they pertain to this patient. The patient has indicated understanding and acceptance of the risks and procedures discussed. PROCEDURE: After the risks, benefits and alternatives of the above mentioned procedure explained in detail with the patient, informed consent was obtained. Patient was taken to the catheterization lab and prepped and draped in usual fashion. 1% lidocaine was used to anesthetize the right radial artery. A 6- Luxembourgish sheath was placed in the right radial artery using modified Seldinger technique. A 6Fr sheath was placed in the right brachial vein using modified Seldinger technique and ultrasound. Right heart catheterization was performed by advancing a 6Fr Winona Tone catheter into the RA, RV, PA, PCWP positions. RA and PA oxygen saturations were drawn. Thermodilution was peformed. The Winona Tone catheter was removed. Left coronary angiography was performed with a 5- Luxembourgish JL 3.5 catheter and right coronary angiography was performed with a 6- Luxembourgish AR2 catheter in various views. A 5-Luxembourgish FR5 catheter was inserted into the left ventricle and pressure measurements were obtained. The right radial sheath was removed and a TR band was placed with hemostasis achieved. The right brachial sheath was pulled with manual pressure. The patient tolerated the procedure well. Patient was transported back to the post catheterization holding area in stable condition. Conscious Sedation: Patient was monitored under the direct supervision of vision of myself for conscious sedation using Versed and fentanyl for a total duration of 54 minutes HEMODYNAMICS: Ao: 128/57 RA: 6 RV: 60/2 PA: 58/17 (MAP: 33) PCWP: 11 LV: 142/12, LVEDP 14 RA oxygen sat: 66% PA oxygen sat:63% Right radial oxygen sat: 86% CO by GELACIO: 6.8 L/min CI by GELACIO: 3.1 L/min/m2 CO by thermodilution: 8.1 L/min CI by thermodiltion: 3.7 L/min/m2 SELECTIVE CORONARY ARTERIOGRAPHY: LEFT MAIN: The left main is a large caliber vessel which bifurcates into the LAD and circumflex. There is no significant stenosis. LEFT ANTERIOR DESCENDING CORONARY ARTERY: LAD is a large caliber vessel which wraps around to the apex. There is no significant stenosis. LEFT CIRCUMFLEX CORONARY ARTERY: Left circumflex is a large caliber vessel without significant stenosis and gives off the PDA and is dominant. RIGHT CORONARY ARTERY: The right coronary artery is a small caliber vessel which is nondominant and gives off a marginal branch. There is no significant stenosis. FINAL IMPRESSION: 1. Normal coronary arteries as described above. 2. Normal left and right sided filling pressures 3. 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 Normal cardiac output. PLAN: 1. Aggressive risk factor modification per most recent ACC/AHA guidelines. 2. Treat underlying hypoxia. 3. Follow-up in the office in 1-2 weeks.
== END 2021-07-18 13:03 | disposition home or self-care (01) ==
LOC: CATHCVL 06:01
PROVIDERS: ATTEND Internal Medicine
DX: R06.00 Dyspnea, unspecified (principal); R09.02 Hypoxemia; R94.39 Abnormal result of other cardiovascular function study; I27.23 Pulmonary hypertension due to lung diseases and hypoxia; I11.0 Hypertensive heart disease with heart failure; I50.32 Chronic diastolic (congestive) heart failure; Z20.822 Contact with and (suspected) exposure to COVID-19; R60.0 Localized edema; Z85.22 Personal history of malignant neoplasm of nasal cavities, middle ear, and accessory sinuses; Z72.0 Tobacco use; Z79.899 Other long term (current) drug therapy
CPT/HCPCS: 93460; 80048; 85018; 82810; 85025; 87635; C1769; C1894; C1751; J2250; J2001; J3010; J1644; Q9967

== ENCOUNTER 2021-09-19 17:40 | Inpatient (IN) | payer MEDICARE, BC ==
[2021-09-19] MEDS ORDERED: DEXAMETHASONE SOD PHOSPHATE 10 MG/ML 1 ML VIAL IV STA (18:13)
--- NOTE | 2021-09-19 18:16 | ED ---
General Adult HPI - General Chief complaint: Shortness of Breath Stated complaint: low oxygen, weakness Time Seen by Provider: 09/19/21 18:04 Source: patient Mode of arrival: wheelchair Limitations: no limitations - History of Present Illness Initial comments: Dictation was produced using [employer] dictation software. please excuse any grammatical, word or spelling errors. Chief Complaint: 76-year-old female presents to the emergency Department for hypoxia and dyspnea History of Present Illness: 76-year-old female she has past medical history of sinus cancer, hypertension. Daughter is at the bedside provides most of the history of present illness. She reports that over the last 7 days patient's breathing status became slightly worse. Patient denies any chest pain. She does feel short of breath. She was seen at primary care physician's office where she was found to be hypoxic with measurements in the 4050% on room air. Patient does not rely on supplemental oxygen at home. Patient has history of tracheal procedure. She is in 7 days without an echo in relation medications. She denies any fever constitutional symptoms. No chest pain. Patient feels like her legs are slightly more swollen than usual. She has had recently traveled to [facility] within the last week. She seen her primary care physician's office. Dr. Tran contacted us and told us that patient would be coming to the emergency department via private vehicle. In the office she was hypoxic for refused EMS transfer. We're also notified by PCP the patient cyanotic. The ROS documented in this emergency department record has been reviewed and confirmed by me. Those systems with pertinent positive or negative responses have been documented in the HPI. All other systems are other negative and/or noncontributory. PHYSICAL EXAM: General Impression: Alert and oriented x3, not in acute distress, cyanotic HEENT: Normocephalic atraumatic, extra-ocular movements intact, pupils equal and reactive to light bilaterally, mucous membranes moist. Cardiovascular: Heart regular rate and rhythm Chest: Able to complete full sentences, no retractions, no tachypnea, diffuse lung crackles Abdomen: abdomen soft, non-tender, non-distended, no organomegaly Musculoskeletal: Pulses present and equal in all extremities, no peripheral edema Motor: no focal deficits noted Neurological: CN II-XII grossly intact, no focal motor or sensory deficits noted Skin: Intact with no visualized rashes Psych: Normal affect and mood ED course: 76-year-old female presents emergency department for shortness of breath, hypoxia and cyanosis as upon arrival shows respiratory of 26, O2 saturation of 52% on room air, rest of vital signs within acceptable limits. Patient appears to be happy hypoxic. Patient's oxygenation improved with 15 L nonrebreather. ABG was attempted by respiratory therapist however patient did not tolerate the needle sticks very well and refused any more attempts. Laboratory evaluation obtained. CBC shows no leukocytosis. Hemoglobin is 16.7. Coag panel is unremarkable. D-dimer is 1.93. Metabolic panel is within acceptable limits. Troponin is 0.050. 4 panel viral PCR is negative for influenza, COVID-19 and RSV. Chest x-ray shows findings suggestive of cardiomegaly pulmonary vascular congestion. CT of the chest was obtained due to elevated d-dimer showing no evidence of pulmonary embolism. Does appear to be lower lobe pulmonary infiltrates and atelectasis. Radiology also suggests some degree of diaphragmat ic paralysis. She is reevaluated after bedside after having been given several minutes of BiPAP with stable medical condition. There was some evidence of infiltrate on the CT. Patient administered ceftriaxone and azithromycin. Patient be admitted to step down unit with consultation to cardiology and pulmonology. Patient will be admitted to Dr. Salmon's service. EKG interpretation: Ventricular rate 70, sinus rhythm,. 157, QS 97, QTc [address] prolongation, no QTC prolongation, no ST or T-wave changes noted. EKG compared to August 02 2020 showing no changes. Overall, this EKG is unremarkable - Related Data Home Medications Medication Instructions Recorded Confirmed Aspirin EC [Ecotrin Low Dose] 81 mg PO DAILY 08/02/20 09/19/21 Cholecalciferol [Vitamin D3 (25 50 mcg PO DAILY 08/02/20 09/19/21 Mcg = 1000 Iu)] Escitalopram [Lexapro] 20 mg PO HS 08/02/20 09/19/21 Selenium 200 mcg PO HS 08/02/20 09/19/21 Berderine Supplement 1,000 mg PO DAILY 07/16/21 09/19/21 Metoprolol Succinate (ER) [Toprol 25 mg PO DAILY 07/16/21 09/19/21 Xl] Cranberry(Unknown) 1 tab PO DAILY 09/19/21 09/19/21 Allergies Allergy/AdvReac Type Severity Reaction Status Date / Time oxycodone AdvReac Nausea & Verified 09/19/21 19:57 Vomiting Review of Systems ROS Statement: Those systems with pertinent positive or pertinent negative responses have been documented in the HPI. ROS Other: All systems not noted in ROS Statement are negative. Past Medical History Past Medical History: Cancer, Hypertension Additional Past Medical History / Comment(s): SOB with activity,sinus cavity cancer, skin cancer History of Any Multi-Drug Resistant Organisms: None Reported Past Surgical History: Section, Cholecystectomy Additional Past Surgical History / Comment(s): eyelid surgery, D&C on 07/30/20,3 emergency trachea proceduresx3,sinus cavity CA removal x17 Past Anesthesia/Blood Transfusion Reactions: Previous Problems w/ Anesthesia Additional Past Anesthesia/Blood Transfusion Reaction / Comment(s): Difficult intubation-states "had emergency trachea with post intubation x3-wind pipe closes",has no letter from anesthesia Past Psychological History: Depression Smoking Status: Former smoker Past Alcohol Use History: None Reported Past Drug Use History: None Reported - Past Family History Mother Family Medical History: Cancer Daughter(s) Family Medical History: Cancer Additional Family Medical History / Comment(s): 2 dtrs had breast CA General Exam Limitations: no limitations Course Vital Signs 09/19/21 09/19/21 09/19/21 17:47 18:25 18:29 Temperature 98.1 F Pulse Rate 76 73 Respiratory 26 H 19 20 Rate Blood Pressure 130/60 170/89 O2 Sat by Pulse 53 L 97 Oximetry Fraction of 100 Inspired Oxygen (FIO2) 09/19/21 09/19/21 09/19/21 19:05 20:00 22:00 Temperature Pulse Rate 70 77 Respiratory 20 22 Rate Blood Pressure 169/89 171/85 O2 Sat by Pulse 97 90 L Oximetry Fraction of 100 Inspired Oxygen (FIO2) Medical Decision Making - Lab Data Result diagrams: 09/19/21 18:23 09/19/21 18:23 Lab Results 09/19/21 09/19/21 09/19/21 Range/Units 18:23 18:23 18:23 WBC 8.3 (3.8-10.6) k/uL RBC 5.69 H (3.80-5.40) m/uL Hgb 16.7 H (11.4-16.0) gm/dL Hct 58.1 H* (34.0-46.0) % MCV 102.1 H (80.0-100.0) fL MCH 29.4 (25.0-35.0) pg MCHC 28.8 L (31.0-37.0) g/dL RDW 15.5 (11.5-15.5) % Plt Count 203 (150-450) k/uL MPV 8.8 Neutrophils % 78 % Lymphocytes % 13 % Monocytes % 7 % Eosinophils % 0 % Basophils % 1 % Neutrophils # 6.4 (1.3-7.7) k/uL Lymphocytes # 1.1 (1.0-4.8) k/uL Monocytes # 0.6 (0-1.0) k/uL Eosinophils # 0.0 (0-0.7) k/uL Basophils # 0.1 (0-0.2) k/uL Hypochromasia Marked Macrocytosis Slight PT (9.0-12.0) sec INR (<1.2) APTT (22.0-30.0) sec D-Dimer (<0.60) mg/L FEU Sodium 141 (137-145) mmol/L Potassium 5.0 (3.5-5.1) mmol/L Chloride 103 (98-107) mmol/L Carbon Dioxide 30 (22-30) mmol/L Anion Gap 8 mmol/L BUN 49 H (7-17) mg/dL Creatinine 1.16 H (0.52-1.04) mg/dL Est GFR (CKD-EPI)AfAm 53 (>60 ml/min/1.73 sqM) Est GFR (CKD-EPI)NonAf 46 (>60 ml/min/1.73 sqM) Glucose 123 H (74-99) mg/dL Plasma Lactic Acid Jimmie (0.7-2.0) mmol/L Calcium 8.4 (8.4-10.2) mg/dL Magnesium 2.3 (1.6-2.3) mg/dL Total Bilirubin 0.5 (0.2-1.3) mg/dL AST 56 H (14-36) U/L ALT 80 H (4-34) U/L Alkaline Phosphatase 102 (38-126) U/L Troponin I (0.000-0.034) ng/mL Total Protein 7.5 (6.3-8.2) g/dL Albumin 4.0 (3.5-5.0) g/dL Influenza Type A (PCR) Not Detected (Not Detectd) Influenza Type B (PCR) Not Detected (Not Detectd) RSV (PCR) Not Detected (Not Detectd) SARS-CoV-2 (PCR) Not Detected (Not Detectd) 09/19/21 09/19/21 09/19/21 Range/Units 18:23 18:23 18:52 WBC (3.8-10.6) k/uL RBC (3.80-5.40) m/uL Hgb (11.4-16.0) gm/dL Hct (34.0-46.0) % MCV (80.0-100.0) fL MCH (25.0-35.0) pg MCHC (31.0-37.0) g/dL RDW (11.5-15.5) % Plt Count (150-450) k/uL MPV Neutrophils % % Lymphocytes % % Monocytes % % Eosinophils % % Basophils % % Neutrophils # (1.3-7.7) k/uL Lymphocytes # (1.0-4.8) k/uL Monocytes # (0-1.0) k/uL Eosinophils # (0-0.7) k/uL Basophils # (0-0.2) k/uL Hypochromasia Macrocytosis PT 11.0 (9.0-12.0) sec INR 1.0 (<1.2) APTT 26.2 (22.0-30.0) sec D-Dimer 1.93 H (<0.60) mg/L FEU Sodium (137-145) mmol/L Potassium (3.5-5.1) mmol/L Chloride (98-107) mmol/L Carbon Dioxide (22-30) mmol/L Anion Gap mmol/L BUN (7-17) mg/dL Creatinine (0.52-1.04) mg/dL Est GFR (CKD-EPI)AfAm (>60 ml/min/1.73 sqM) Est GFR (CKD-EPI)NonAf (>60 ml/min/1.73 sqM) Glucose (74-99) mg/dL Plasma Lactic Acid Jimmie 1.6 (0.7-2.0) mmol/L Calcium (8.4-10.2) mg/dL Magnesium (1.6-2.3) mg/dL Total Bilirubin (0.2-1.3) mg/dL AST (14-36) U/L ALT (4-34) U/L Alkaline Phosphatase (38-126) U/L Troponin I 0.050 H* (0.000-0.034) ng/mL Total Protein (6.3-8.2) g/dL Albumin (3.5-5.0) g/dL Influenza Type A (PCR) (Not Detectd) Influenza Type B (PCR) (Not Detectd) RSV (PCR) (Not Detectd) SARS-CoV-2 (PCR) (Not Detectd) Critical Care Time Critical Care Time: Yes Total Critical Care Time: 33 Disposition Clinical Impression: Respiratory failure, unspecified with hypoxia Disposition: ADMITTED IP TO THIS [facility] Condition: Serious Referrals: Len Tran MD [Primary Care Provider] - 1-2 days Decision Time: 22:36
[2021-09-19 18:39] LABS: Basophils # (A) 0.1 k/uL (0-0.2); Basophils % (A) 1 %; Eosinophils % (A) 0 %; HGB 16.7 gm/dL (11.4-16.0); Hypochromasia Marked; Lymphocytes # (A) 1.1 k/uL (1.0-4.8); Lymphocytes % (A) 13 %; MCH 29.4 pg (25.0-35.0); MCHC 28.8 g/dL (31.0-37.0); MCV 102.1 fL (80.0-100.0); Macrocytosis Slight; Mean Platelet Volume 8.8; Monocytes # (A) 0.6 k/uL (0-1.0); Monocytes % (A) 7 %; Neutrophils # (A) 6.4 k/uL (1.3-7.7); Neutrophils % (A) 78 %; Platelet Count 203 k/uL (150-450); RBC 5.69 m/uL (3.80-5.40); RDW 15.5 % (11.5-15.5); WBC 8.3 k/uL (3.8-10.6)
[2021-09-19 18:49] LABS: HCT 58.1 % (34.0-46.0)
[2021-09-19 18:51] LABS: Calcium 8.4 mg/dL (8.4-10.2); Magnesium 2.3 mg/dL (1.6-2.3); Total Bilirubin 0.5 mg/dL (0.2-1.3); Total Protein 7.5 g/dL (6.3-8.2)
--- NOTE | 2021-09-19 19:04 | XR ---
EXAMINATION TYPE: XR chest 1V portable DATE OF EXAM: 09/19/2021 6:12 PM COMPARISON: None TECHNIQUE: XR chest 1V portable Frontal view of the chest. CLINICAL INDICATION:Female, 76 years old with history of hypoxia; FINDINGS: Lungs/Pleura: There is no evidence of pleural effusion, focal consolidation, or pneumothorax. Pulmonary vascularity: Pulmonary vascular congestion. Heart/mediastinum: Cardiomediastinal silhouette is enlarged and stable. Musculoskeletal: No acute osseous pathology. IMPRESSION: Cardiomegaly and mild pulmonary vascular congestion. Correlate with BNP for congestive heart failure. Superimposed infection is not entirely excluded.
[2021-09-19 20:28] LABS: Partial Thromboplastin Time 26.2 sec (22.0-30.0)
[2021-09-19] MEDS ORDERED: FUROSEMIDE 10 MG/ML 4 ML VIAL IV STA (22:25)
--- NOTE | 2021-09-19 22:30 | CT ---
EXAMINATION TYPE: CT angio chest DATE OF EXAM: 09/19/2021 COMPARISON: None HISTORY: SOB CT DLP: 889.2 mGycm Automated exposure control for dose reduction was used. CONTRAST: Performed with IV Contrast, patient injected with 80 mL of Isovue 370. Exam from the thoracic inlet to the diaphragm with IV contrast. There are Three-D postprocessed image s. There is coarse infiltrate and atelectasis in the posterior lung brown. There is collection density at the lung bases. Heart appears slightly enlarged. There is no pericardial effusion. There is some e levation of the right diaphragm. There are large pulmonary arteries. No evidence of filling defect. There are no hilar masses. No medi astinal adenopathy. Thoracic aorta appears intact. No dissection. The ascending aorta measures 3.5 cm . The thoracic spine is intact. No compression fracture. The sternum is intact. There is multilevel t horacic spondylotic changes with osteophyte formation. IMPRESSION: No evidence of pulmonary embolism. Cardiomegaly. Lower lobe pulmonary infiltrates and atelectasis. Elevated right diaphragm could relate to some diaphragm paralysis.
[2021-09-19] MEDS ORDERED: AZITHROMYCIN 500 MG in SODIUM CHLORIDE 0.9% 250 ML IVPB STA (22:31)
[2021-09-19 22:53] LABS: ABG HCO3 31 mmol/L (21-25); ABG Oxygen Saturation 93.5 % (94-97); ABG PO2 92 mmHg (83-108); ABG TCO2 34 mmol/L (19-24); Allen Test Performed? Yes
[2021-09-19] MEDS: NITROGLYCERIN OINT 1 INCH/GM PACKET TOPICAL SCH (22:54)
[2021-09-19] MEDS: FUROSEMIDE 10 MG/ML 4 ML VIAL IV SCH (22:54)
[2021-09-19] MEDS ORDERED: IPRATROPIUM-ALBUTEROL 3 ML NEB INHALATION STA (23:03)
[2021-09-19 23:09] LABS: ABG PCO2 98 mmHg (35-45)
[2021-09-20 08:13] LABS: ABG Base Excess 3.2 mmol/L; ABG HCO3 32 mmol/L (21-25); ABG Oxygen Saturation 87.1 % (94-97); ABG TCO2 35 mmol/L (19-24); Allen Test Performed? Yes
[2021-09-20 08:16] LABS: ABG PCO2 88 mmHg (35-45); ABG PH 7.17 (7.35-7.45); ABG PO2 57 mmHg (83-108)
[2021-09-20] MEDS: NITROGLYCERIN OINT 1 INCH/GM PACKET TOPICAL SCH (09:18)
[2021-09-20] MEDS ORDERED: ASPIRIN 81 MG PO SCH (10:00)
[2021-09-20] MEDS ORDERED: ENOXAPARIN 40 MG/0.4 ML SYRINGE SQ SCH (10:00)
[2021-09-20] MEDS: FUROSEMIDE 10 MG/ML 4 ML VIAL IV SCH ×2 (10:23→22:19)
[2021-09-20] MEDS: METOPROLOL SUCCINATE (ER) 25 MG TAB.ER.24H PO SCH ×2 (10:30→10:38)
[2021-09-20] MEDS ORDERED: IPRATROPIUM-ALBUTEROL 3 ML NEB INHALATION PRN (11:25)
--- NOTE | 2021-09-20 11:27 | P.CNPUL ---
History of Present Illness Consult date: 09/20/21 Requesting physician: Sebastian Salmon Reason for consult: dyspnea, hypoxemia, pleural effusion, abnormal CXR/CT Chief complaint: Respiratory distress. History of present illness: Pulmonary consult dated 09/20/2021. This is a 76-year-old female who was seen in the emergency room, for shortness of breath. The patient apparently has a history of hypertension, and came to the emergency department complaining of increasing shortness of breath for about 7 days prior to her visit in the ER. There was no chest pain. The patient was seen in the ER, and placed on BiPAP. I was called by the ER physician, for further instructions. The patient had a very abnormal initial blood gas. The patient currently is on saline at KVO, BiPAP, with settings of 16/5, and 60%, and her saturations were 90% on those settings. A repeat blood gas showed a pO2 of 57, pCO2 of 88, and a pH is 7.17. Initial blood gases showed a pO2 of 92, a pCO2 of 98, and a pH is 7.10. I did tell the ER doctor, to make sure the patient received just enough oxygen, so saturations were in the 85-90% range. The patient will be transferred to the intensive care unit for further monitoring and management. Her white count was 8.3, hemoglobin 16.7, hematocrit 58.1, with a normal platelet count. D-dimer was 1.93. Sodium 141, potassium 5, chlorides 103, CO2 30, BUN 49, creatinine 1.16. AST was 56, ALT 80, and troponin was 0.050. N-terminal proBNP was 5350. Chest x-ray was consistent with cardiomegaly and CHF. CT angiogram was negative for pulmonary embolism, and did show changes that were consistent with CHF. 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 She was a former smoker. Review of Systems REVIEW OF SYSTEMS: CONSTITUTIONAL: [Negative.] NEUROLOGIC: [ Negative.] HEENT: [ Negative.] CARDIAC: Shortness of breath 7 days. PULMONARY: Shortness of breath 7 days. GI: [Negative.] : [Negative.] RHEUMATOLOGIC: [ Negative.] IMMUNOLOGIC: [ Negative.] ENDOCRINE: [Negative. ] DERMATOLOGIC: [Negative.] Past Medical History Past Medical History: Cancer, Hypertension Additional Past Medical History / Comment(s): SOB with activity,sinus cavity cancer, skin cancer History of Any Multi-Drug Resistant Organisms: None Reported Past Surgical History: Section, Cholecystectomy Additional Past Surgical History / Comment(s): eyelid surgery, D&C on 07/30/20,3 emergency trachea proceduresx3,sinus cavity CA removal x17 Past Anesthesia/Blood Transfusion Reactions: Previous Problems w/ Anesthesia Additional Past Anesthesia/Blood Transfusion Reaction / Comment(s): Difficult intubation-states "had emergency trachea with post intubation x3-wind pipe closes",has no letter from anesthesia Past Psychological History: Depression Smoking Status: Former smoker Past Alcohol Use History: None Reported Past Drug Use History: None Reported - Past Family History Mother Family Medical History: Cancer Daughter(s) Family Medical History: Cancer Additional Family Medical History / Comment(s): 2 dtrs had breast CA Medications and Allergies Home Medications Medication Instructions Recorded Confirmed Type Aspirin EC [Ecotrin Low Dose] 81 mg PO DAILY 08/02/20 09/19/21 History Cholecalciferol [Vitamin D3 (25 50 mcg PO DAILY 08/02/20 09/19/21 History Mcg = 1000 Iu)] Escitalopram [Lexapro] 20 mg PO HS 08/02/20 09/19/21 History Selenium 200 mcg PO HS 08/02/20 09/19/21 History Berderine Supplement 1,000 mg PO DAILY 07/16/21 09/19/21 History Metoprolol Succinate (ER) [Toprol 25 mg PO DAILY 07/16/21 09/19/21 History Xl] Cranberry(Unknown) 1 tab PO DAILY 09/19/21 09/19/21 History Allergies Allergy/AdvReac Type Severity Reaction Status Date / Time oxycodone AdvReac Nausea & Verified 09/19/21 19:57 Vomiting Physical Exam Osteopathic Statement: *. No significant issues noted on an osteopathic structural exam other than those noted in the History and Physical/Consult. Vitals: Vital Signs Temp Pulse Resp BP Pulse Ox FiO2 09/20/21 10:34 66 20 107/63 91 L 09/20/21 09:15 60 20 116/61 89 L 09/20/21 08:41 86 L 09/20/21 07:39 61 20 108/60 90 L 09/20/21 06:46 70 06/03/22 06:13 75 25 H 125/62 88 L 09/20/21 05:04 71 22 115/70 87 L 09/20/21 02:54 70 09/20/21 02:27 65 22 125/68 90 L 09/20/21 00:44 65 17 109/60 88 L 09/20/21 00:00 64 24 102/61 97 09/19/21 23:23 66 80 09/19/21 23:16 68 09/19/21 23:07 100 09/19/21 23:00 73 20 171/85 92 L 09/19/21 22:00 77 22 171/85 90 L 09/19/21 20:00 70 20 169/89 97 09/19/21 19:05 100 09/19/21 18:29 20 09/19/21 18:25 73 19 170/89 97 100 09/19/21 17:47 98.1 F 76 26 H 130/60 53 L Intake and Output 09/19/21 09/20/21 09/20/21 22:59 06:59 14:59 Other: Weight 117.934 kg Mild respiratory distress, with mild conversational dyspnea. BiPAP mask in place. HEENT examination is grossly unremarkable. Neck supple. Full range of motion. No adenopathy thyromegaly or neck vein distention. Cardiovascular examination reveals regular rhythm rate. S1-S2 normal. No S3 or S4. No discernible murmur noted. Heart sounds are distant. Heart rate 66 bpm. Lungs reveal diffuse rhonchi and crackles. Breath sounds equal. She is not taking deep breaths. No wheezes. Saturations are between 89 and 91%. Abdomen is obese, without bowel sounds. No tenderness. Extremities reveal lower extremity edema, 1+. No cyanosis or clubbing. Skin reveals chronic venous stasis changes to the lower extremities. Neurologic examination is brief but nonfocal. Results - Laboratory Findings CBC and BMP: 09/19/21 18:23 09/19/21 18:23 ABG ABG pH 7.17 (7.35-7.45) L* 09/20/21 08:06 ABG pCO2 88 mmHg (35-45) H* 09/20/21 08:06 ABG pO2 57 mmHg (83-108) L* 09/20/21 08:06 ABG O2 Saturation 87.1 % (94-97) L 09/20/21 08:06 PT/INR, D-dimer PT 11.0 sec (9.0-12.0) 09/19/21 18:52 INR 1.0 (<1.2) 09/19/21 18:52 D-Dimer 1.93 mg/L FEU (<0.60) H 09/19/21 18:52 Abnormal lab findings: Abnormal Labs 09/19/21 09/19/21 09/19/21 18:23 18:23 18:23 RBC 5.69 H Hgb 16.7 H Hct 58.1 H* MCV 102.1 H MCHC 28.8 L D-Dimer ABG pH ABG pCO2 ABG pO2 ABG HCO3 ABG Total CO2 ABG O2 Saturation BUN 49 H Creatinine 1.16 H Glucose 123 H AST 56 H ALT 80 H Troponin I 0.050 H* 09/19/21 09/19/21 09/20/21 18:52 22:51 08:06 RBC Hgb Hct MCV MCHC D-Dimer 1.93 H ABG pH 7.10 L* 7.17 L* ABG pCO2 98 H* 88 H* ABG pO2 57 L* ABG HCO3 31 H 32 H ABG Total CO2 34 H 35 H ABG O2 Saturation 93.5 L 87.1 L BUN Creatinine Glucose AST ALT Troponin I - Diagnostic Findings Chest x-ray: image reviewed CT scan - chest: image reviewed Assessment and Plan Assessment: Shortness of breath, likely related to underlying CHF. History of hypertension. Chronic hypercapnic respiratory failure. Elevated troponin, rule out myocardial ischemia. His history of sinus cavity cancer. History of skin cancer. History of depression. Prior history of tobacco use. Polycythemia, likely secondary to chronic hypoxemic respiratory failure. Possible history of sleep apnea syndrome and/or Pickwickian syndrome. Plan: Plan dated 09/20/2021. The patient was evaluated in the emergency room. She was seen in room 6. She remains on BiPAP, with settings of 16/5 and 60%. I told respiratory to maintain saturations between 85 and 90%. The patient had a repeat arterial blood gas. The patient should be receiving Lasix. If not or ready done, the patient should be seen by cardiology. We will continue to follow make recommendations where appropriate. Prognosis is guarded. The patient is transferred to the intensive care unit for further monitoring and management. Time with Patient: Greater than 30
[2021-09-20 11:52] LABS: Glucose,Whole Blood 88 mg/dL (75-99)
[2021-09-20] MEDS: IPRATROPIUM-ALBUTEROL 3 ML NEB INHALATION SCH ×3 (12:21→20:13)
--- NOTE | 2021-09-20 12:37 | P.CRDCN ---
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 She follows in the office with Dr. Jean. We have been asked to see in consultation for congestive heart failure. Patient presents emergency department for with increasing shortness of breath over the past week. She denies any chest pain, lightheadedness, dizziness or syncope. She denies any fever, cough or chills. 07/18/2021 patient underwent left and right heart cath which showed normal coronary arteries, normal left and right sided pressures with an LVEDP of 14, wedge pressure of 11 and right atrial pressure of 6 Mean pulmonary arterial pressure of 33. Pulmonary arterial systolic pressure 58. She had a normal cardiac output. DIAGNOSTICS EKG reveals sinus rhythm, heart rate 70, nonspecific T-wave abnormalities. CT chest revealed lower lobe pulmonary infiltrates and atelectasis. No evidence of pulmonary embolism. Cardiomegaly. Large pulmonary arteries. Laboratory reviewed, WBC 8.3, hemoglobin 16.7, platelets 203, pH 7.1, CO2 88, O2 57, bicarb 32, troponin 0.05, proBNP 5350, sodium 141, potassium 5.0, BUN 49, serum creatinine 1.1, magnesium 2.3 Current home cardiac medications include metoprolol tartrate 25 mg daily, aspirin 81 mg daily REVIEW OF SYSTEMS At the time of my exam: CONSTITUTIONAL: Denies fever or chills. CARDIOVASCULAR: Denies chest pain, +shortness of breath, Denies orthopnea, PND or palpitations. RESPIRATORY: Denies cough. GASTROINTESTINAL: Denies abdominal pain, diarrhea, constipation, nausea or vomiting. MUSCULOSKELETAL: Denies myalgias. NEUROLOGIC: Denies numbness, tingling, headacbe or weakness. ENDOCRINE: Denies fatigue, weight change, polydipsia or polyurina. GENITOURINARY: Denies burning, hematuria or urgency with micturation. HEMATOLOGIC: Denies history of anemia or bleeding. PHYSICAL EXAMINATION Blood pressure 141/67 HR 64 on BIPAP CONSTITUTIONAL: Short of breath, on BIPAP HEENT: Head is normocephalic. Pupils are equal, round. Sclerae anicteric. Mucous membranes of the mouth are moist. No JVD. No carotid bruit. CHEST EXAMINATION: Lungs are clear to auscultation. No chest wall tenderness is noted on palpation or with deep breathing. HEART EXAMINATION: Regular rate and rhythm. S1, S2 heard. No murmurs, gallops or rub. ABDOMEN: Soft, nontender. Positive bowel sounds. EXTREMITIES: 2+ peripheral pulses, no lower extremity edema and no calf tenderness. NEUROLOGIC EXAMINATION: Patient is awake, alert and oriented x3. 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 She does have pulmonary hypertension. She additionally did not have benefit outpatient from her diuretics. Agree with BIPAP Ok to continue IV Lasix 40mg BID, continue to adjust as needed. Repeat Echo ordered Recommend pulmonary consult and evaluation. We will continue to monitor and follow patient Nurse practitioner note has been reviewed by physician. Signing provider agrees with the documented findings, assessment, and plan of care. Past Medical History Past Medical History: Cancer, Hypertension Additional Past Medical History / Comment(s): SOB with activity,sinus cavity cancer, skin cancer History of Any Multi-Drug Resistant Organisms: None Reported Past Surgical History: Section, Cholecystectomy Additional Past Surgical History / Comment(s): eyelid surgery, D&C on 07/30/20,3 emergency trachea proceduresx3,sinus cavity CA removal x17 Past Anesthesia/Blood Transfusion Reactions: Previous Problems w/ Anesthesia Additional Past Anesthesia/Blood Transfusion Reaction / Comment(s): Difficult intubation-states "had emergency trachea with post intubation x3-wind pipe closes",has no letter from anesthesia Past Psychological History: Depression Smoking Status: Former smoker Past Alcohol Use History: None Reported Past Drug Use History: None Reported - Past Family History Mother Family Medical History: Cancer Daughter(s) Family Medical History: Cancer Additional Family Medical History / Comment(s): 2 dtrs had breast CA Medications and Allergies Home Medications Medication Instructions Recorded Confirmed Type Aspirin EC [Ecotrin Low Dose] 81 mg PO DAILY 08/02/20 09/19/21 History Cholecalciferol [Vitamin D3 (25 50 mcg PO DAILY 08/02/20 09/19/21 History Mcg = 1000 Iu)] Escitalopram [Lexapro] 20 mg PO HS 08/02/20 09/19/21 History Selenium 200 mcg PO HS 08/02/20 09/19/21 History Berderine Supplement 1,000 mg PO DAILY 07/16/21 09/19/21 History Metoprolol Succinate (ER) [Toprol 25 mg PO DAILY 07/16/21 09/19/21 History Xl] Cranberry(Unknown) 1 tab PO DAILY 09/19/21 09/19/21 History Allergies Allergy/AdvReac Type Severity Reaction Status Date / Time oxycodone AdvReac Nausea & Verified 09/19/21 19:57 Vomiting Physical Exam Vitals: Vital Signs Temp Pulse Resp BP Pulse Ox FiO2 09/20/21 07:39 61 20 108/60 90 L 09/20/21 06:46 70 09/20/21 06:13 75 25 H 125/62 88 L 09/20/21 05:04 71 22 115/70 87 L 09/20/21 02:54 70 09/20/21 02:27 65 22 125/68 90 L 09/20/21 00:44 65 17 109/60 88 L 09/20/21 00:00 64 24 102/61 97 09/19/21 23:23 66 80 09/19/21 23:16 68 09/19/21 23:07 100 09/19/21 23:00 73 20 171/85 92 L 09/19/21 22:00 77 22 171/85 90 L 09/19/21 20:00 70 20 169/89 97 09/19/21 19:05 100 09/19/21 18:29 20 09/19/21 18:25 73 19 170/89 97 100 09/19/21 17:47 98.1 F 76 26 H 130/60 53 L Intake and Output 09/19/21 09/20/21 09/20/21 22:59 06:59 14:59 Other: Weight 117.934 kg Results 09/19/21 18:23 09/19/21 18:23 Cardiac Enzymes 09/19/21 09/19/21 Range/Units 18:23 18:23 AST 56 H (14-36) U/L Troponin I 0.050 H* (0.000-0.034) ng/mL Coagulation 09/19/21 Range/Units 18:52 PT 11.0 (9.0-12.0) sec APTT 26.2 (22.0-30.0) sec CBC 09/19/21 Range/Units 18:23 WBC 8.3 (3.8-10.6) k/uL RBC 5.69 H (3.80-5.40) m/uL Hgb 16.7 H (11.4-16.0) gm/dL Hct 58.1 H* (34.0-46.0) % Plt Count 203 (150-450) k/uL Comprehensive Metabolic Panel 09/19/21 Range/Units 18:23 Sodium 141 (137-145) mmol/L Potassium 5.0 (3.5-5.1) mmol/L Chloride 103 (98-107) mmol/L Carbon Dioxide 30 (22-30) mmol/L BUN 49 H (7-17) mg/dL Creatinine 1.16 H (0.52-1.04) mg/dL Glucose 123 H (74-99) mg/dL Calcium 8.4 (8.4-10.2) mg/dL AST 56 H (14-36) U/L ALT 80 H (4-34) U/L Alkaline Phosphatase 102 (38-126) U/L Total Protein 7.5 (6.3-8.2) g/dL Albumin 4.0 (3.5-5.0) g/dL Current Medications Generic Name Dose Route Start Last Admin Trade Name Glenn PRN Reason Stop Dose Admin Furosemide 40 mg 09/19/21 22:45 09/19/21 22:54 Furosemide 10 Mg/Ml 4 Ml Vial IV Not Given Q12H BAHMAN Nitroglycerin 1 inch 09/19/21 22:45 09/19/21 22:54 Nitroglycerin Oint 1 Inch/Gm Packet TOPICAL 1 inch QID BAHMAN Administration Intake and Output 09/19/21 09/20/21 09/20/21 22:59 06:59 14:59 Other: Weight 117.934 kg 09/19/21 18:23 09/19/21 18:23
--- NOTE | 2021-09-20 12:51 | P.HPIM ---
History of Present Illness H&P Date: 09/20/21 Chief Complaint: Short of breath History of presenting complaint: This is a pleasant [address] Len Tran. 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 Has had about 19 surgeries last one being about 3 years ago. 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 Patient had a MRI in March 2020 that did not show any recurrence. Patient had some shortness of breath on and off for about a month. More so in the last 2 days. Congested cough. No obvious fever and chills. Tired. Patient dozes off very easily. Requiring BiPAP in the ER. Patient's daughter the bedside to give most of the history. Patient rather tired and lethargic. Review of systems: GEN.: Tired decreased appetite EYES: Absence of left eye HEENT: As above NECK: None RESPIRATORY: as above CARDIOVASCULAR: None GASTROINTESTINAL: None GENITOURINARY: None MUSCULOSKELETAL: Joint pains LYMPHATICS: None HEMATOLOGICAL: None PSYCHIATRY: None NEUROLOGICAL: Cannot see out of the left eye Past medical history to include: Hypertension, sinus cavity cancer radiation treatment 1989 at least 19 surgeries last one being in 2 years ago. MRI in March 2020 was negative, depression Social history: Lives alone., Smoked a pack a day for 40 years stopped 20 years ago. No alcohol. Physical examination: VITAL SIGNS: 98.1, 76, 26, 130/60, 53% on room air upon presentation GENERAL: BMI 43.4, reclining, BiPAP short of breath EYES: [Left eye is not present l. HEENT: External appearance of nose and ears normal, some facial asymmetry NECK: JVD not raised; masses not palpable. HEART: First and second heart sounds are normal; some edema present LUNGS: Rate increased, [place] muscles are working, not able to speak in sentences. Diminished breath sounds ABDOMEN: Soft, nontender, liver spleen not palpable, no masses palpable. PSYCH: lethargic. Unable to assess NEUROLOGICAL: Cranial nerves grossly intact; no facial asymmetry, power and sensation grossly intact, left eye absent LYMPHATICS: No lymph nodes palpable in the axilla and neck INVESTIGATIONS, reviewed in the clinical context: White count 8.3 hemoglobin 16.7 platelets 203 ABG: PH 7.17, pCO2 88, pO2 57 Potassium 5. 49 creatinine 1.16 Troponin I 0.050 proBNP 5350 Influenza type A, influenza type B, RSV, COVID-19: Not detected EKG tracing personally reviewed by me-normal sinus rhythm. Chest x-ray film personally reviewed by me-pulmonary edema versus infiltrates chest CTA: Large pulmonary arteries. No PE. Coarse infiltrates. Atelectasis. Some elevation of right diaphragm. Assessment and plan -Probable pneumonia suspected gram-negative organism. Ceftriaxone 1 g every 12 . Check pro-calcitonin -Acute hypoxic and hypercapnic respiratory failure secondary to pneumonia/fluid overload BiPAP. Pulmonary consulted -Acute hypoxic hypercapnic encephalopathy Follow clinically -questionable pulmonary edema 2-D echocardiogram. IV Lasix. 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 BiPAP. IV Lasix. Resume Toprol-XL. Telemetry. Consultation to cartilage and pulmonary. Care was discussed with the daughter the bedside. Patient be moved to the ICU. Given the complexity and severity of patient's condition expect the patient to be in the hospital at least for 2 overnights Past Medical History Past Medical History: Cancer, Hypertension, Osteoarthritis (OA) Additional Past Medical History / Comment(s): SOB with activity,sinus cavity cancer, skin cancer History of Any Multi-Drug Resistant Organisms: None Reported Past Surgical History: Section, Cholecystectomy Additional Past Surgical History / Comment(s): eyelid surgery, D&C on 07/30/20,3 emergency trachea proceduresx3,sinus cavity CA removal x17 Past Anesthesia/Blood Transfusion Reactions: Previous Problems w/ Anesthesia Additional Past Anesthesia/Blood Transfusion Reaction / Comment(s): Difficult intubation-states "had emergency trachea with post intubation x3-wind pipe [place] ses",has no letter from anesthesia Past Psychological History: Anxiety, Depression Smoking Status: Former smoker Past Alcohol Use History: None Reported Additional Past Alcohol Use History / Comment(s): quit smoking 2001 approx, smoked approx 40 yrs 1ppd Past Drug Use History: None Reported - Past Family History Mother Family Medical History: Cancer Daughter(s) Family Medical History: Cancer Additional Family Medical History / Comment(s): 2 dtrs had breast CA Medications and Allergies Home Medications Medication Instructions Recorded Confirmed Type Aspirin EC [Ecotrin Low Dose] 81 mg PO DAILY 08/02/20 09/19/21 History Cholecalciferol [Vitamin D3 (25 50 mcg PO DAILY 08/02/20 09/19/21 History Mcg = 1000 Iu)] Escitalopram [Lexapro] 20 mg PO HS 08/02/20 09/19/21 History Selenium 200 mcg PO HS 08/02/20 09/19/21 History Berderine Supplement 1,000 mg PO DAILY 07/16/21 09/19/21 History Metoprolol Succinate (ER) [Toprol 25 mg PO DAILY 07/16/21 09/19/21 History Xl] Cranberry(Unknown) 1 tab PO DAILY 09/19/21 09/19/21 History Allergies Allergy/AdvReac Type Severity Reaction Status Date / Time oxycodone AdvReac Nausea & Verified 09/19/21 19:57 Vomiting Physical Exam Vitals: Vital Signs Temp Pulse Pulse Resp BP BP Pulse Ox 09/20/21 12:21 65 09/20/21 12:18 97.9 F 64 15 141/67 09/20/21 11:53 09/20/21 11:30 65 18 98/62 91 L 09/20/21 10:34 66 20 107/63 91 L 09/20/21 09:15 60 20 116/61 89 L 09/20/21 08:41 86 L 09/20/21 07:39 61 20 108/60 90 L 09/20/21 06:46 09/20/21 06:13 75 25 H 125/62 88 L 09/20/21 05:04 71 22 115/70 87 L 09/20/21 02:54 09/20/21 02:27 65 22 125/68 90 L 09/20/21 00:44 65 17 109/60 88 L 09/20/21 00:00 64 24 102/61 97 09/19/21 23:23 66 09/19/21 23:16 68 09/19/21 23:07 09/19/21 23:00 73 20 171/85 92 L 09/19/21 22:00 77 22 171/85 90 L 09/19/21 20:00 70 20 169/89 97 09/19/21 19:05 09/19/21 18:29 20 09/19/21 18:25 73 19 170/89 97 09/19/21 17:47 98.1 F 76 26 H 130/60 53 L FiO2 09/20/21 12:21 09/20/21 12:18 09/20/21 11:53 60 09/20/21 11:30 09/20/21 10:34 09/20/21 09:15 09/20/21 08:41 09/20/21 07:39 09/20/21 06:46 70 09/20/21 06:13 09/20/21 05:04 09/20/21 02:54 70 09/20/21 02:27 09/20/21 00:44 09/20/21 00:00 09/19/21 23:23 80 09/19/21 23:16 09/19/21 23:07 100 09/19/21 23:00 09/19/21 22:00 09/19/21 20:00 09/19/21 19:05 100 09/19/21 18:29 09/19/21 18:25 100 09/19/21 17:47 Intake and Output 09/19/21 09/20/21 09/20/21 22:59 06:59 14:59 Other: Weight 117.934 kg 118.4 kg Results CBC & Chem 7: 09/19/21 18:23 09/19/21 18:23 Labs: Abnormal Lab Results - Last 24 Hours (Table) 09/19/21 09/19/21 09/19/21 Range/Units 18:23 18:23 18:23 RBC 5.69 H (3.80-5.40) m/uL Hgb 16.7 H (11.4-16.0) gm/dL Hct 58.1 H* (34.0-46.0) % MCV 102.1 H (80.0-100.0) fL MCHC 28.8 L (31.0-37.0) g/dL D-Dimer (<0.60) mg/L FEU ABG pH (7.35-7.45) ABG pCO2 (35-45) mmHg ABG pO2 (83-108) mmHg ABG HCO3 (21-25) mmol/L ABG Total CO2 (19-24) mmol/L ABG O2 Saturation (94-97) % BUN 49 H (7-17) mg/dL Creatinine 1.16 H (0.52-1.04) mg/dL Glucose 123 H (74-99) mg/dL AST 56 H (14-36) U/L ALT 80 H (4-34) U/L Troponin I 0.050 H* (0.000-0.034) ng/mL 09/19/21 09/19/21 09/20/21 Range/Units 18:52 22:51 08:06 RBC (3.80-5.40) m/uL Hgb (11.4-16.0) gm/dL Hct (34.0-46.0) % MCV (80.0-100.0) fL MCHC (31.0-37.0) g/dL D-Dimer 1.93 H (<0.60) mg/L FEU ABG pH 7.10 L* 7.17 L* (7.35-7.45) ABG pCO2 98 H* 88 H* (35-45) mmHg ABG pO2 57 L* (83-108) mmHg ABG HCO3 31 H 32 H (21-25) mmol/L ABG Total CO2 34 H 35 H (19-24) mmol/L ABG O2 Saturation 93.5 L 87.1 L (94-97) % BUN (7-17) mg/dL Creatinine (0.52-1.04) mg/dL Glucose (74-99) mg/dL AST (14-36) U/L ALT (4-34) U/L Troponin I (0.000-0.034) ng/mL
[2021-09-20 12:59] LABS: Appearance,Urine Clear (Clear); Bilirubin,Urine Negative (Negative); Blood,Urine Negative (Negative); Color,Urine Yellow; Glucose,Urine (UA) Negative (Negative); Ketones,Urine Negative (Negative); Leukocyte Esterase,Urine Negative (Negative); Mucus,Urine Rare /hpf; Nitrite,Urine Negative (Negative); PH, Urine 5.5 (5.0-8.0); Protein,Urine 1+ (Negative); Specific Gravity,Urine 1.017 (1.001-1.035); Urobilinogen,Urine <2.0 mg/dL (<2.0); WBC,Urine 1 /hpf (0-5)
--- NOTE | 2021-09-20 13:08 | CA ---
Transthoracic Echo Report Name: Meliza Ness Age: 76 Gender: F : 1945 Exam Date: 09/20/2021 11:00 Exam Location: [facility] Ht (in): 65 Wt (lb): 260 Ordering Physician: Sebastian Salmon MD Attending/Referring Phys: Ssis Architect Gavi Coley RDCS Procedure CPT: Indications: chf Cardiac Hx: Technical Quality: Fair Contrast 1: Total Dose (mL): Contrast 2: Total Dose (mL): MEASUREMENTS (Male / Female) Normal Values 2D ECHO LV Diastolic Diameter PLAX 3.6 cm 4.2 - 5.9 / 3.9 - 5.3 cm LV Systolic Diameter PLAX 2.5 cm IVS Diastolic Thickness 1.5 cm 0.6 - 1.0 / 0.6 - 0.9 cm LVPW Diastolic Thickness 1.5 cm 0.6 - 1.0 / 0.6 - 0.9 cm LV Relative Wall Thickness 0.8 RV Internal Dim ED PLAX 3.4 cm LA Systolic Diameter LX 3.5 cm 3.0 - 4.0 / 2.7 - 3.8 cm LA Volume 74.9 cm??? 18 - 58 / 22 - 52 cm??? M-MODE Aortic Root Diameter MM 3.4 cm MV E Point Septal Separation 0.2 cm AV Cusp Separation MM 2.0 cm DOPPLER AV Peak Velocity 152.9 cm/s AV Peak Gradient 9.4 mmHg MV Area PHT 2.9 cm??? Mitral E Point Velocity 106.5 cm/s Mitral A Point Velocity 91.8 cm/s Mitral E to A Ratio 1.2 MV Deceleration Time 260.7 ms MV E' Velocity 5.4 cm/s Mitral E to MV E' Ratio 19.5 TR Peak Velocity 370.0 cm/s TR Peak Gradient 54.8 mmHg Right Ventricular Systolic Press 69.8 mmHg FINDINGS Left Ventricle Left ventricular ejection fraction is estimated at 60-65 %. Left ventricular cavity size normal. Moderate concentric left ventricular hypertrophy. Right Ventricle Mild right ventricular dilatation. Severe pulmonary hypertension. Right Atrium Normal right atrial size. Left Atrium Severely increased left atrial volume. Mildly increased left atrial area. Mitral Valve Mitral annular calcification. No mitral stenosis, regurgitation or prolapse. Aortic Valve Trileaflet aortic valve. No aortic valve stenosis or regurgitation. Tricuspid Valve Mild tricuspid regurgitation. Pulmonic Valve Trace pulmonic regurgitation. Pericardium Normal pericardium. Aorta Normal size aortic root and proximal ascending aorta. CONCLUSIONS Moderate LVH Normal left ventricular ejection fraction 60-65% Severe pulmonary hypertension RVSP 69 Severely dilated left atrium No mitral regurgitation Mild tricuspid regurgitation No pericardial effusion Previewed by: Dr. Stephane Jean DO (Electronically Signed) Final Date: 20 September 2021 13:07
[2021-09-20 14:23] LABS: ABG Base Excess 7.6 mmol/L; ABG HCO3 35 mmol/L (21-25); ABG Oxygen Saturation 87.9 % (94-97); ABG PH 7.21 (7.35-7.45); ABG TCO2 38 mmol/L (19-24); Allen Test Performed? Yes
[2021-09-20 14:24] LABS: ABG PCO2 88 mmHg (35-45); ABG PO2 59 mmHg (83-108)
[2021-09-20 19:23] LABS: HCT 50.2 % (34.0-46.0); HGB 14.4 gm/dL (11.4-16.0); Hypochromasia Marked; MCH 29.4 pg (25.0-35.0); MCHC 28.7 g/dL (31.0-37.0); MCV 102.3 fL (80.0-100.0); Macrocytosis Slight; Mean Platelet Volume 8.7; Platelet Count 171 k/uL (150-450); RBC 4.91 m/uL (3.80-5.40); RDW 15.5 % (11.5-15.5); WBC 9.7 k/uL (3.8-10.6)
[2021-09-20] MEDS: ESCITALOPRAM 20 MG TAB PO SCH (20:05)
[2021-09-20 21:40] LABS: HCT 49.8 % (34.0-46.0); HGB 14.2 gm/dL (11.4-16.0); Hypochromasia Marked; MCH 29.5 pg (25.0-35.0); MCHC 28.5 g/dL (31.0-37.0); MCV 103.6 fL (80.0-100.0); Macrocytosis Moderate; Mean Platelet Volume 8.5; Platelet Count 167 k/uL (150-450); RBC 4.81 m/uL (3.80-5.40); RDW 15.6 % (11.5-15.5); WBC 9.3 k/uL (3.8-10.6)
[2021-09-21] MEDS ORDERED: DEXTROSE 5% IN WATER 100 ML with AMIODARONE 150 MG IV ONE (05:09)
[2021-09-21] MEDS ORDERED: AMIODARONE 360 MG in DEXTROSE 5% IN WATER 200 ML IV ONE ×2 (05:10)
[2021-09-21 05:15] LABS: Hypochromasia Marked; MCH 28.6 pg (25.0-35.0); MCV 102.1 fL (80.0-100.0); Macrocytosis Slight; Mean Platelet Volume 8.5; Platelet Count 178 k/uL (150-450); RDW 15.1 % (11.5-15.5); WBC 8.2 k/uL (3.8-10.6)
[2021-09-21 05:26] LABS: Albumin 3.3 g/dL (3.5-5.0); Total Bilirubin 0.6 mg/dL (0.2-1.3); Total Protein 6.7 g/dL (6.3-8.2)
[2021-09-21 05:43] LABS: Band Neutrophils % 4 %; Lymphocytes # (M) 0.82 k/uL (1.0-4.8); Monocytes # (M) 0.57 k/uL (0-1.0); Neutrophils % (M) 79 %; Nucleated Red Blood Cells 0 /100 WBC (0-0); Total Cells Counted 100
[2021-09-21 05:53] LABS: Potassium 4.7 mmol/L (3.5-5.1)
--- NOTE | 2021-09-21 06:54 | XR ---
EXAMINATION TYPE: XR chest 1V portable DATE OF EXAM: 09/21/2021 5:05 AM COMPARISON: Chest radiograph from two days prior.CT chest 09/19/2021 TECHNIQUE: XR chest 1V portable Portable AP radiograph of the chest.. CLINICAL INDICATION:Female, 76 years old with history of pulm edema; FINDINGS: Lungs/Pleura: Similar multifocal airspace opacities. No evidence of pneumothorax or pleural effusion. Pulmonary vascularity: Unremarkable. Heart/mediastinum: Cardiomediastinal silhouette is enlarged and stable. Atherosclerotic calcificatio ns are seen in the aorta. Musculoskeletal: No acute osseous pathology. IMPRESSION: Similar multifocal airspace opacities.
[2021-09-21] MEDS: IPRATROPIUM-ALBUTEROL 3 ML NEB INHALATION SCH ×4 (07:13→20:59)
[2021-09-21 07:16] LABS: ABG Base Excess 13.8 mmol/L; ABG HCO3 38 mmol/L (21-25); ABG Oxygen Saturation 97.1 % (94-97); ABG PCO2 58 mmHg (35-45); ABG PH 7.43 (7.35-7.45); ABG PO2 77 mmHg (83-108); ABG TCO2 40 mmol/L (19-24); Allen Test Performed? Yes
[2021-09-21] MEDS: CHOLECALCIFEROL 25 MCG (1000 IU) TABLET PO SCH (09:05)
[2021-09-21] MEDS: METOPROLOL SUCCINATE (ER) 25 MG TAB.ER.24H PO SCH (09:05)
[2021-09-21] MEDS: AMIODARONE 200 MG TAB PO SCH ×3 (09:18→20:18)
--- NOTE | 2021-09-21 10:02 | P.PN ---
Subjective Progress Note Date: 09/21/21 This is a 76-year-old female with history of hypertension, pulmonary hypertension, sinus cancer, Status post surgery and history of previous tracheostomy, came to the hospital with increasing shortness of breath. Patient has evidence of hypoxia and hypercapnia. Patient is on CPAP. We're asked to see the patient because of shortness of breath and abnormal troponin. Patient had a cardiac catheterization by Dr. Jean in June including right heart cath. Main pulmonary artery pressure at the time was 33. The pulmonary artery systolic blood pressure about 58. Patient had echocardiogram which showed normal LV function. Again with evidence of moderate to severe pulmonary hypertension. It seemed to be noncardiac in nature. Patient is being treated with IV diuretics. Continue current management. No acute cardiac intervention at this time Objective - Vital Signs Vital signs: Vital Signs Temp 98.8 F 09/21/21 04:00 Pulse 74 09/21/21 07:31 Resp 20 09/21/21 05:00 BP 135/76 09/21/21 07:00 Pulse Ox 96 09/21/21 07:00 FiO2 60 09/21/21 07:04 Intake & Output 09/20/21 09/21/21 09/21/21 18:59 06:59 18:59 Intake Total 60 170 80 Output Total 1809 2029 285 Balance -1750 -1860 -205 Weight 118.4 kg 112.9 kg Intake: IV 60 170 80 0.9 60 120 30 cefTRIAXone 1 gm In 50 50 Sodium Chloride 0.9% 50 ml @ 100 mls/hr IVPB Q12HR [facility] Rx#:[id number] Output: Urine 1809 2029 285 Other: Voiding Method Indwelling Catheter Indwelling Catheter # Bowel Movements 1 1 1 - Exam GENERAL EXAM: Patient is on BiPAP lethargic HEENT: Normocephalic. Normal reaction of pupils, equal size, normal range of ex traocular motion. No erythema or exudates in the throat. NECK: Supple CHEST: No chest wall deformity. LUNGS: Diminished air exchange. HEART: Distant heart sounds ABDOMEN: No hepatosplenomegaly, normal bowel sounds, no guarding or rigidity. SKIN: No rashes CENTRAL NERVOUS SYSTEM: No focal deficits. EXTREMITIES: No cyanosis, clubbing or edema. - Labs CBC & Chem 7: 09/21/21 05:02 09/21/21 05:02 Labs: Abnormal Lab Results - Last 24 Hours (Table) 09/20/21 09/20/21 09/20/21 Range/Units 12:12 14:21 18:50 Hct 50.2 H (34.0-46.0) % MCV 102.3 H (80.0-100.0) fL MCHC 28.7 L (31.0-37.0) g/dL RDW (11.5-15.5) % Lymphocytes # (Manual) (1.0-4.8) k/uL ABG pH 7.21 L (7.35-7.45) ABG pCO2 88 H* (35-45) mmHg ABG pO2 59 L* (83-108) mmHg ABG HCO3 35 H (21-25) mmol/L ABG Total CO2 38 H (19-24) mmol/L ABG O2 Saturation 87.9 L (94-97) % Sodium (137-145) mmol/L Carbon Dioxide (22-30) mmol/L BUN (7-17) mg/dL Glucose (74-99) mg/dL Calcium (8.4-10.2) mg/dL AST (14-36) U/L ALT (4-34) U/L Albumin (3.5-5.0) g/dL Urine Protein 1+ H (Negative) Urine Mucus Rare H (None) /hpf 09/20/21 09/21/21 09/21/21 Range/Units 21:26 05:02 05:02 Hct 49.8 H 50.0 H (34.0-46.0) % MCV 103.6 H 102.1 H (80.0-100.0) fL MCHC 28.5 L 28.0 L (31.0-37.0) g/dL RDW 15.6 H (11.5-15.5) % Lymphocytes # (Manual) 0.82 L (1.0-4.8) k/uL ABG pH (7.35-7.45) ABG pCO2 (35-45) mmHg ABG pO2 (83-108) mmHg ABG HCO3 (21-25) mmol/L ABG Total CO2 (19-24) mmol/L ABG O2 Saturation (94-97) % Sodium 148 H (137-145) mmol/L Carbon Dioxide 38 H (22-30) mmol/L BUN 57 H (7-17) mg/dL Glucose 111 H (74-99) mg/dL Calcium 8.0 L (8.4-10.2) mg/dL AST 49 H (14-36) U/L ALT 52 H (4-34) U/L Albumin 3.3 L (3.5-5.0) g/dL Urine Protein (Negative) Urine Mucus (None) /hpf 09/21/21 Range/Units 07:06 Hct (34.0-46.0) % MCV (80.0-100.0) fL MCHC (31.0-37.0) g/dL RDW (11.5-15.5) % Lymphocytes # (Manual) (1.0-4.8) k/uL ABG pH (7.35-7.45) ABG pCO2 58 H (35-45) mmHg ABG pO2 77 L (83-108) mmHg ABG HCO3 38 H (21-25) mmol/L ABG Total CO2 40 H (19-24) mmol/L ABG O2 Saturation 97.1 H (94-97) % Sodium (137-145) mmol/L Carbon Dioxide (22-30) mmol/L BUN (7-17) mg/dL Glucose (74-99) mg/dL Calcium (8.4-10.2) mg/dL AST (14-36) U/L ALT (4-34) U/L Albumin (3.5-5.0) g/dL Urine Protein (Negative) Urine Mucus (None) /hpf Assessment and Plan (1) Pulmonary hypertension Current Visit: Yes Status: Acute Code(s): I27.20 - PULMONARY HYPERTENSION, UNSPECIFIED SNOMED Code(s): 52778367 (2) Respiratory failure, unspecified with hypoxia Current Visit: Yes Status: Acute Code(s): J96.91 - RESPIRATORY FAILURE, UNSPECIFIED WITH HYPOXIA SNOMED Code(s): 01021589881782252 Plan: Patient shortness of breath is probably pulmonary in nature. Cardiac cath did not show any left ventricle failure. LV function is preserved. Continue current diuretics and rest of the management. We'll follow her as needed
[2021-09-21] MEDS: DEXTROSE 5% IN WATER 1,000 ML IV SCH (10:03)
--- NOTE | 2021-09-21 10:28 | P.GSCN ---
History of Present Illness Consult date: 09/21/21 Reason for Consult: GI bleed History of present illness: 76-year-old female in the ICU because of hypoxia and dyspnea. Patient last night started having large bloody stools. Hemoglobin despite the size of the bowel movements has remained remarkably stable with a hemoglobin today of 14.0. Patient is awake and alert. She states she has not had rectal bleeding in the past. She says her last colonoscopy was 20-30 years ago. She says she thinks she had vaginal bleeding a year ago that was addressed by gynecology. Per the nursing staff the volume of bleeding decreased overnight. Her most recent stool had a greenish darker color to it. Denies abdominal pain. No vomiting. Review of Systems The patient denies any acute changes in vision or hearing, no dysphagia or odynophagia, no dysuria or hematuria, no headache, no runny nose, no unexplained weight loss Past Medical History Past Medical History: Cancer, Hypertension, Osteoarthritis (OA) Additional Past Medical History / Comment(s): SOB with activity,sinus cavity cancer, skin cancer History of Any Multi-Drug Resistant Organisms: None Reported Past Surgical History: Section, Cholecystectomy Additional Past Surgical History / Comment(s): eyelid surgery, D&C on 07/30/20,3 emergency trachea proceduresx3,sinus cavity CA removal x17 Past Anesthesia/Blood Transfusion Reactions: Previous Problems w/ Anesthesia Additional Past Anesthesia/Blood Transfusion Reaction / Comm: Difficult intubation-states "had emergency trachea with post intubation x3-wind pipe closes",has no letter from anesthesia Past Psychological History: Anxiety, Depression Smoking Status: Former smoker Past Alcohol Use History: None Reported Additional Past Alcohol Use History / Comment(s): quit smoking 2001 approx, smoked approx 40 yrs 1ppd Past Drug Use History: None Reported - Past Family History Mother Family Medical History: Cancer Daughter(s) Family Medical History: Cancer Additional Family Medical History / Comment(s): 2 dtrs had breast CA Medications and Allergies Home Medications Medication Instructions Recorded Confirmed Type Aspirin EC [Ecotrin Low Dose] 81 mg PO DAILY 08/02/20 09/19/21 History Cholecalciferol [Vitamin D3 (25 50 mcg PO DAILY 08/02/20 09/19/21 History Mcg = 1000 Iu)] Escitalopram [Lexapro] 20 mg PO HS 08/02/20 09/19/21 History Selenium 200 mcg PO HS 08/02/20 09/19/21 History Berderine Supplement 1,000 mg PO DAILY 07/16/21 09/19/21 History Metoprolol Succinate (ER) [Toprol 25 mg PO DAILY 07/16/21 09/19/21 History Xl] Cranberry(Unknown) 1 tab PO DAILY 09/19/21 09/19/21 History Allergies Allergy/AdvReac Type Severity Reaction Status Date / Time oxycodone AdvReac Nausea & Verified 09/19/21 19:57 Vomiting Surgical - Exam Vital Signs Temp Pulse Resp BP Pulse Ox 98.1 F 76 26 H 130/60 53 L 09/19/21 17:47 09/19/21 17:47 09/19/21 17:47 09/19/21 17:47 09/19/21 17:47 Physical exam: General: Well-developed, well-nourished HEENT: Normocephalic, sclerae nonicteric, left facial scarring from previous sinus surgery and enucleation Abdomen: Nontender, mildly distended Extremities: Mild lower extremity edema Neuro: Alert and oriented Results - Labs 09/21/21 05:02 09/21/21 05:02 Abnormal Lab Results - Last 24 Hours (Table) 09/20/21 09/20/21 09/20/21 Range/Units 12:12 14:21 18:50 Hct 50.2 H (34.0-46.0) % MCV 102.3 H (80.0-100.0) fL MCHC 28.7 L (31.0-37.0) g/dL RDW (11.5-15.5) % Lymphocytes # (Manual) (1.0-4.8) k/uL ABG pH 7.21 L (7.35-7.45) ABG pCO2 88 H* (35-45) mmHg ABG pO2 59 L* (83-108) mmHg ABG HCO3 35 H (21-25) mmol/L ABG Total CO2 38 H (19-24) mmol/L ABG O2 Saturation 87.9 L (94-97) % Sodium (137-145) mmol/L Carbon Dioxide (22-30) mmol/L BUN (7-17) mg/dL Glucose (74-99) mg/dL Calcium (8.4-10.2) mg/dL AST (14-36) U/L ALT (4-34) U/L Albumin (3.5-5.0) g/dL Urine Protein 1+ H (Negative) Urine Mucus Rare H (None) /hpf 09/20/21 09/21/21 09/21/21 Range/Units 21:26 05:02 05:02 Hct 49.8 H 50.0 H (34.0-46.0) % MCV 103.6 H 102.1 H (80.0-100.0) fL MCHC 28.5 L 28.0 L (31.0-37.0) g/dL RDW 15.6 H (11.5-15.5) % Lymphocytes # (Manual) 0.82 L (1.0-4.8) k/uL ABG pH (7.35-7.45) ABG pCO2 (35-45) mmHg ABG pO2 (83-108) mmHg ABG HCO3 (21-25) mmol/L ABG Total CO2 (19-24) mmol/L ABG O2 Saturation (94-97) % Sodium 148 H (137-145) mmol/L Carbon Dioxide 38 H (22-30) mmol/L BUN 57 H (7-17) mg/dL Glucose 111 H (74-99) mg/dL Calcium 8.0 L (8.4-10.2) mg/dL AST 49 H (14-36) U/L ALT 52 H (4-34) U/L Albumin 3.3 L (3.5-5.0) g/dL Urine Protein (Negative) Urine Mucus (None) /hpf 09/21/21 Range/Units 07:06 Hct (34.0-46.0) % MCV (80.0-100.0) fL MCHC (31.0-37.0) g/dL RDW (11.5-15.5) % Lymphocytes # (Manual) (1.0-4.8) k/uL ABG pH (7.35-7.45) ABG pCO2 58 H (35-45) mmHg ABG pO2 77 L (83-108) mmHg ABG HCO3 38 H (21-25) mmol/L ABG Total CO2 40 H (19-24) mmol/L ABG O2 Saturation 97.1 H (94-97) % Sodium (137-145) mmol/L Carbon Dioxide (22-30) mmol/L BUN (7-17) mg/dL Glucose (74-99) mg/dL Calcium (8.4-10.2) mg/dL AST (14-36) U/L ALT (4-34) U/L Albumin (3.5-5.0) g/dL Urine Protein (Negative) Urine Mucus (None) /hpf Diabetes panel 09/21/21 Range/Units 05:02 Sodium 148 H (137-145) mmol/L Potassium 4.7 (3.5-5.1) mmol/L Chloride 105 (98-107) mmol/L Carbon Dioxide 38 H (22-30) mmol/L BUN 57 H (7-17) mg/dL Creatinine 1.04 (0.52-1.04) mg/dL Glucose 111 H (74-99) mg/dL Calcium 8.0 L (8.4-10.2) mg/dL AST 49 H (14-36) U/L ALT 52 H (4-34) U/L Alkaline Phosphatase 65 (38-126) U/L Total Protein 6.7 (6.3-8.2) g/dL Albumin 3.3 L (3.5-5.0) g/dL Calcium panel 09/21/21 Range/Units 05:02 Calcium 8.0 L (8.4-10.2) mg/dL Albumin 3.3 L (3.5-5.0) g/dL Pituitary panel 09/21/21 Range/Units 05:02 Sodium 148 H (137-145) mmol/L Potassium 4.7 (3.5-5.1) mmol/L Chloride 105 (98-107) mmol/L Carbon Dioxide 38 H (22-30) mmol/L BUN 57 H (7-17) mg/dL Creatinine 1.04 (0.52-1.04) mg/dL Glucose 111 H (74-99) mg/dL Calcium 8.0 L (8.4-10.2) mg/dL Adrenal panel 09/21/21 Range/Units 05:02 Sodium 148 H (137-145) mmol/L Potassium 4.7 (3.5-5.1) mmol/L Chloride 105 (98-107) mmol/L Carbon Dioxide 38 H (22-30) mmol/L BUN 57 H (7-17) mg/dL Creatinine 1.04 (0.52-1.04) mg/dL Glucose 111 H (74-99) mg/dL Calcium 8.0 L (8.4-10.2) mg/dL Total Bilirubin 0.6 (0.2-1.3) mg/dL AST 49 H (14-36) U/L ALT 52 H (4-34) U/L Alkaline Phosphatase 65 (38-126) U/L Total Protein 6.7 (6.3-8.2) g/dL Albumin 3.3 L (3.5-5.0) g/dL Assessment and Plan (1) GI bleed Narrative/Plan: 76-year-old female with rectal bleeding last night. Possibly some melanotic stools this morning. Hemoglobin is stable and patient is hemodynamically stable. Continue antiacids. Clear liquid diet for now. We'll plan upper and lower endoscopy during this Hospital stay when patient has improvement in her pulmonary status. Current Visit: Yes Status: Acute Code(s): K92.2 - GASTROINTESTINAL HEMORRHAGE, UNSPECIFIED SNOMED Code(s): 23726692
[2021-09-21] MEDS ORDERED: AMIODARONE 450 MG in DEXTROSE 5% IN WATER 250 ML IV SCH ×2 (11:10)
--- NOTE | 2021-09-21 11:11 | P.PN ---
Subjective Progress Note Date: 09/21/21 Principal diagnosis: Respiratory failure. Pulmonary consult dated 09/20/2021. This is a 76-year-old female who was seen in the emergency room, for shortness of breath. The patient apparently has a history of hypertension, and came to the emergency department complaining of increasing shortness of breath for about 7 days prior to her visit in the ER. There was no chest pain. The patient was seen in the ER, and placed on BiPAP. I was called by the ER physician, for further instructions. The patient had a very abnormal initial blood gas. The patient currently is on saline at KVO, BiPAP, with settings of 16/5, and 60%, and her saturations were 90% on those settings. A repeat blood gas showed a pO2 of 57, pCO2 of 88, and a pH is 7.17. Initial blood gases showed a pO2 of 92, a pCO2 of 98, and a pH is 7.10. I did tell the ER doctor, to make sure the patient received just enough oxygen, so saturations were in the 85-90% range. The patient will be transferred to the intensive care unit for further monitoring and management. Her white count was 8.3, hemoglobin 16.7, hematocrit 58.1, with a normal platelet count. D-dimer was 1.93. Sodium 141, potassium 5, chlorides 103, CO2 30, BUN 49, creatinine 1.16. AST was 56, ALT 80, and troponin was 0.050. N-terminal proBNP was 5350. Chest x-ray was consistent with cardiomegaly and CHF. CT angiogram was negative for pulmonary embolism, and did show changes that were consistent with CHF. The patient apparently has a history of sinus cavity cancer, hypertension, skin cancer, obesity, and depression. She was a former smoker. Progress note dated 09/21/2021. 76-year-old female seen yesterday in the emergency department for shortness of breath. The patient is currently in the intensive care unit. Blood gases done on 60% oxygen, show pO2 77, pCO2 of 58, and a pH is 7.43. That was likely when she was on BiPAP at 16/5, and 60%. Currently, she is on 8 L high flow nasal cannula. She is getting saline at KVO. Her Lasix dose will be decreased today. She's getting saline changed to D5 W. White count is 8.2, hemoglobin 14, hematocrit 50, and platelet count 178,000. Sodium 148, potassium 4.7, chlorides 105, CO2 38, anion gap 5, BUN 57, creatinine 1.04. Calcium is 8. AST and ALT are 49 and 52 respectively. Chest x-ray continues to show bilateral infiltrates. Objective - Vital Signs Vital signs: Vital Signs Temp 99.0 F 09/21/21 08:00 Pulse 107 H 09/21/21 10:00 Resp 48 H 09/21/21 10:00 BP 127/98 09/21/21 10:00 Pulse Ox 88 L 09/21/21 10:00 FiO2 60 09/21/21 08:00 Intake & Output 09/20/21 09/21/21 09/21/21 18:59 06:59 18:59 Intake Total 60 170 90 Output Total 1809 2029 345 Balance -7195 -5071 -064 Weight 118.4 kg 112.9 kg Intake: IV 60 170 90 0.9 60 120 40 cefTRIAXone 1 gm In 50 50 Sodium Chloride 0.9% 50 ml @ 100 mls/hr IVPB Q12HR [facility] [place] Rx#:[id number] Output: Urine 1809 2029 345 Other: Voiding Method Indwelling Catheter Indwelling Catheter Indwelling Catheter # Bowel Movements 1 1 1 - Exam Oriented 3, no acute distress. No conversational dyspnea, or use of accessory muscles. HEENT examination is grossly unremarkable. Neck supple. Full range of motion. No adenopathy thyromegaly or neck vein distention. Cardiovascular examination reveals regular rhythm rate. S1-S2 normal. No S3 or S4. No discernible murmur noted. Heart sounds are distant. Heart rate 100 bpm. Lungs reveal diffuse rhonchi and crackles. Breath sounds equal. She is not taking deep breaths. No wheezes. Saturations are between 89 and 92%. Abdomen is obese, without bowel sounds. No tenderness. Extremities reveal lower extremity edema, 1+. No cyanosis or clubbing. Skin reveals chronic venous stasis changes to the lower extremities. Neurologic examination is brief but nonfocal. - Labs CBC & Chem 7: 09/21/21 05:02 09/21/21 05:02 Labs: Abnormal Lab Results - Last 24 Hours (Table) 09/20/21 09/20/21 09/20/21 Range/Units 12:12 14:21 18:50 Hct 50.2 H (34.0-46.0) % MCV 102.3 H (80.0-100.0) fL MCHC 28.7 L (31.0-37.0) g/dL RDW (11.5-15.5) % Lymphocytes # (Manual) (1.0-4.8) k/uL ABG pH 7.21 L (7.35-7.45) ABG pCO2 88 H* (35-45) mmHg ABG pO2 59 L* (83-108) mmHg ABG HCO3 35 H (21-25) mmol/L ABG Total CO2 38 H (19-24) mmol/L ABG O2 Saturation 87.9 L (94-97) % Sodium (137-145) mmol/L Carbon Dioxide (22-30) mmol/L BUN (7-17) mg/dL Glucose (74-99) mg/dL Calcium (8.4-10.2) mg/dL AST (14-36) U/L ALT (4-34) U/L Albumin (3.5-5.0) g/dL Urine Protein 1+ H (Negative) Urine Mucus Rare H (None) /hpf 09/20/21 09/21/21 09/21/21 Range/Units 21:26 05:02 05:02 Hct 49.8 H 50.0 H (34.0-46.0) % MCV 103.6 H 102.1 H (80.0-100.0) fL MCHC 28.5 L 28.0 L (31.0-37.0) g/dL RDW 15.6 H (11.5-15.5) % Lymphocytes # (Manual) 0.82 L (1.0-4.8) k/uL ABG pH (7.35-7.45) ABG pCO2 (35-45) mmHg ABG pO2 (83-108) mmHg ABG HCO3 (21-25) mmol/L ABG Total CO2 (19-24) mmol/L ABG O2 Saturation (94-97) % Sodium 148 H (137-145) mmol/L Carbon Dioxide 38 H (22-30) mmol/L BUN 57 H (7-17) mg/dL Glucose 111 H (74-99) mg/dL Calcium 8.0 L (8.4-10.2) mg/dL AST 49 H (14-36) U/L ALT 52 H (4-34) U/L Albumin 3.3 L (3.5-5.0) g/dL Urine Protein (Negative) Urine Mucus (None) /hpf 09/21/21 Range/Units 07:06 Hct (34.0-46.0) % MCV (80.0-100.0) fL MCHC (31.0-37.0) g/dL RDW (11.5-15.5) % Lymphocytes # (Manual) (1.0-4.8) k/uL ABG pH (7.35-7.45) ABG pCO2 58 H (35-45) mmHg ABG pO2 77 L (83-108) mmHg ABG HCO3 38 H (21-25) mmol/L ABG Total CO2 40 H (19-24) mmol/L ABG O2 Saturation 97.1 H (94-97) % Sodium (137-145) mmol/L Carbon Dioxide (22-30) mmol/L BUN (7-17) mg/dL Glucose (74-99) mg/dL Calcium (8.4-10.2) mg/dL AST (14-36) U/L ALT (4-34) U/L Albumin (3.5-5.0) g/dL Urine Protein (Negative) Urine Mucus (None) /hpf Assessment and Plan Assessment: Shortness of breath, likely related to underlying CHF. History of hypertension. Chronic hypercapnic respiratory failure. Elevated troponin, rule out myocardial ischemia. History of sinus cavity cancer. History of skin cancer. History of depression. Prior history of tobacco use. Polycythemia, likely secondary to chronic hypoxemic respiratory failure. Possible history of sleep apnea syndrome and/or Pickwickian syndrome. Plan: Plan dated 09/20/2021. The patient was evaluated in the emergency room. She was seen in room 6. She remains on BiPAP, with settings of 16/5 and 60%. I told respiratory to maintain saturations between 85 and 90%. The patient had a repeat arterial blood gas. The patient should be receiving Lasix. If not or ready done, the patient should be seen by cardiology. We will continue to follow make recommendations where appropriate. Prognosis is guarded. The patient is transferred to the intensive care unit for further monitoring and management. Plan dated 09/21/2021. The patient appears to be doing a bit better today than yesterday. Yesterday, she was seen in the emergency room. A gases are stable for her. She is a CO2 retainer. She is on 8 L high flow nasal O2. I asked the respiratory therapist to maintain a saturation between 88 and 92%. She can also use BiPAP with settings of 16/5 and 60%. Today, her Lasix dose is reduced. She is mildly hypernatremic. Her saline IV is changed to D5 W. We will continue to follow make recommendations where appropriate. Prognosis is certainly guarded. Time with Patient: Greater than 30
[2021-09-21 13:35] LABS: HCT 49.2 % (34.0-46.0); Hypochromasia Marked; MCH 28.7 pg (25.0-35.0); MCHC 28.5 g/dL (31.0-37.0); MCV 100.8 fL (80.0-100.0); Macrocytosis Slight; Mean Platelet Volume 8.5; Platelet Count 161 k/uL (150-450); RBC 4.88 m/uL (3.80-5.40); RDW 15.1 % (11.5-15.5); WBC 7.4 k/uL (3.8-10.6)
--- NOTE | 2021-09-21 14:05 | P.PN ---
Progress Note - Text Progress Note Date: 09/21/21 Chief Complaint: Short of breath History of presenting complaint: This is a pleasant [address] Len Tran. 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 Has had about 19 surgeries last one being about 3 years ago. 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 Patient had a MRI in March 2020 that did not show any recurrence. Patient had some shortness of breath on and off for about a month. More so in the last 2 days. Congested cough. No obvious fever and chills. Tired. Patient dozes off very easily. Requiring BiPAP in the ER. Patient's daughter the bedside to give most of the history. Patient rather tired and lethargic. Admitted with pneumonia, acute hypoxic respiratory failure, questionable CHF. BiPAP. IV ceftriaxone. IV Lasix. Bronchodilators. Admitted to ICU September 21: ICU: Patient getting bronchodilators. On 10 L of nasal cannula. IV Lasix 40 mg daily. [place] to be predominant pneumonia. Able to converse. Rober bauman at the bedside. Patient answering questions. Tired Active Medications Albuterol/Ipratropium (Ipratropium-Albuterol 3 Ml Neb) 3 ml INHALATION RT-QID [facility] Last Admin: 09/21/21 11:07 Dose: 3 ml Albuterol/Ipratropium (Ipratropium-Albuterol 3 Ml Neb) 3 ml INHALATION RT-Q2H PRN PRN Reason: Shortness Of Breath Or Wheezing Amiodarone HCl (Amiodarone 200 Mg Tab) 200 mg PO TID [facility] Last Admin: 09/21/21 09:18 Dose: 200 mg Cholecalciferol (Cholecalciferol 25 Mcg (1000 Iu) Tablet) 50 mcg PO DAILY [facility] Last Admin: 09/21/21 09:05 Dose: 50 mcg Escitalopram Oxalate (Escitalopram 20 Mg Tab) 20 mg PO HS [facility] Last Admin: 09/20/21 20:05 Dose: Not Given Furosemide (Furosemide 10 Mg/Ml 4 Ml Vial) 40 mg IV DAILY [facility] Ceftriaxone Sodium 1 gm/ (Sodium Chloride) 50 mls @ 100 mls/hr IVPB Q12HR [facility]; Protocol Last Admin: 09/21/21 09:05 Dose: 100 mls/hr Dextrose/Water (Dextrose 5%-Water Iv Soln) 1,000 mls @ 20 mls/hr IV .Q24H [facility] Last Admin: 09/21/21 10:03 Dose: 20 mls/hr Metoprolol Succinate (Metoprolol Succinate (Er) 25 Mg Tab.Er.24h) 25 mg PO DAILY [facility] Last Admin: 09/21/21 09:05 Dose: 25 mg Past medical history to include: Hypertension, sinus cavity cancer radiation treatment 1989 at least 19 surgeries last one being in 2 years ago. MRI in March 2020 was negative, depression Social history: Lives alone., Smoked a pack a day for 40 years stopped 20 years ago. No alcohol. Physical examination: VITAL SIGNS: 99.3, 120, 17, 11 5 x 95, 89% on 10 L GENERAL: , reclining, more awake, some shortness of breath EYES: [Left eye is not present l. HEENT: External appearance of nose and ears normal, some facial asymmetry NECK: JVD not raised; masses not palpable. HEART: First and second heart sounds are normal; some edema present LUNGS: Rate increased, , not able to speak in full sentences. Diminished breath sounds ABDOMEN: Soft, nontender, liver spleen not palpable, no masses palpable. PSYCH: Able to answer questions NEUROLOGICAL: Cranial nerves grossly intact; no facial asymmetry, power and sensation grossly intact, left eye absent INVESTIGATIONS, reviewed in the clinical context: September 21: White count 7.4 hemoglobin 14 sodium 148 potassium 4.7 creatinine 1.04. BUN 57 white count 38 2-D echocardiogram: EF 60-65%. Moderate concentric LVH. Severe pulmonary hypertension. White count 8.3 hemoglobin 16.7 platelets 203 ABG: PH 7.17, pCO2 88, pO2 57 Potassium 5. 49 creatinine 1.16 Troponin I 0.050 proBNP 5350 Influenza type A, influenza type B, RSV, COVID-19: Not detected EKG tracing personally reviewed by me-normal sinus rhythm. Chest x-ray film personally reviewed by me-pulmonary edema versus infiltrates chest CTA: Large pulmonary arteries. No PE. Coarse infiltrates. Atelectasis. Some elevation of right diaphragm. Assessment and plan -Probable pneumonia suspected gram-negative organism. Ceftriaxone 1 g every 12 . Pending pro-calcitonin -Acute hypoxic and hypercapnic respiratory failure secondary to pneumonia: Slow to respond BiPAP. Claritin 10 L nasal cannula -Acute hypoxic hypercapnic encephalopathy: Improvement Follow clinically -questionable pulmonary edema 2-D echocardiogram. IV Lasix. 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 -Metabolic alkalosis from volume contraction Add Diamox -Essential hypertension Toprol-XL 25 mg a day -Depression Lexapro -Full code ceftriaxone. 10 L nasal cannula. Discussed with daughter. Other medications to continue. Add Diamox. Pending procalcitonin. Will require VQ scan when more stable.
[2021-09-21] MEDS: acetaZOLAMIDE 250 MG TAB PO SCH ×2 (14:53→20:17)
[2021-09-21] MEDS: ESCITALOPRAM 20 MG TAB PO SCH (20:17)
[2021-09-21 22:08] LABS: HCT 50.7 % (34.0-46.0); HGB 14.4 gm/dL (11.4-16.0); Hypochromasia Marked; MCH 28.8 pg (25.0-35.0); MCHC 28.5 g/dL (31.0-37.0); MCV 101.1 fL (80.0-100.0); Macrocytosis Slight; Mean Platelet Volume 8.6; Platelet Count 165 k/uL (150-450); RBC 5.01 m/uL (3.80-5.40); RDW 14.9 % (11.5-15.5); WBC 6.9 k/uL (3.8-10.6)
[2021-09-22 04:53] LABS: HCT 47.1 % (34.0-46.0); HGB 13.8 gm/dL (11.4-16.0); Hypochromasia Marked; MCH 29.3 pg (25.0-35.0); MCHC 29.3 g/dL (31.0-37.0); MCV 100.2 fL (80.0-100.0); Macrocytosis Slight; Mean Platelet Volume 8.7; Platelet Count 164 k/uL (150-450); RDW 15.2 % (11.5-15.5); WBC 6.3 k/uL (3.8-10.6)
[2021-09-22 05:26] LABS: Calcium 7.9 mg/dL (8.4-10.2); Potassium 3.2 mmol/L (3.5-5.1)
[2021-09-22] MEDS ORDERED: Potassium Replacement Protocol 1 EACH MISC MISCELLANE PRN (06:31)
[2021-09-22] MEDS: POTASSIUM CHLORIDE ER 20 MEQ TAB.ER PO SCH ×2 (06:39→08:40)
--- NOTE | 2021-09-22 06:40 | XR ---
EXAMINATION TYPE: XR chest 1V portable DATE OF EXAM: 09/22/2021 COMPARISON: 09/21/2021 HISTORY: Shortness of breath TECHNIQUE: Single frontal view of the chest is obtained. FINDINGS: Diffuse small airspace opacity unchanged compared to previous. Probable pulmonary vascular congestion. Heart size is normal. There is no pneumothorax or large pleural effusion. The osseous structures are intact. IMPRESSION: No interval change.
[2021-09-22] MEDS: IPRATROPIUM-ALBUTEROL 3 ML NEB INHALATION SCH ×4 (07:01→20:42)
[2021-09-22] MEDS: acetaZOLAMIDE 250 MG TAB PO SCH ×2 (08:40→21:13)
[2021-09-22] MEDS: METOPROLOL SUCCINATE (ER) 25 MG TAB.ER.24H PO SCH (08:41)
[2021-09-22] MEDS: FUROSEMIDE 10 MG/ML 4 ML VIAL IV SCH (08:41)
[2021-09-22] MEDS: CHOLECALCIFEROL 25 MCG (1000 IU) TABLET PO SCH (08:41)
[2021-09-22] MEDS: AMIODARONE 200 MG TAB PO SCH ×3 (08:41→21:13)
[2021-09-22] MEDS: DEXTROSE 5% IN WATER 1,000 ML IV SCH (10:07)
[2021-09-22] MEDS: methylPREDNISolone SOD SUCCI 125 MG/2 ML VIAL IV SCH ×2 (10:07→17:41)
--- NOTE | 2021-09-22 11:16 | P.PN ---
Subjective Progress Note Date: 09/22/21 Principal diagnosis: GI bleeding Patient doing well today. No new complaints. No significant bleeding. Tolerating diet. Objective - Vital Signs Vital signs: Vital Signs Temp 98.4 F 09/22/21 08:00 Pulse 65 09/22/21 10:00 Resp 14 09/22/21 10:00 BP 130/73 09/22/21 10:00 Pulse Ox 92 L 09/22/21 10:00 FiO2 60 09/22/21 08:00 Intake & Output 09/21/21 09/22/21 09/22/21 18:59 06:59 18:59 Intake Total 370 170 40 Output Total 2240 875 370 Balance -0654 -704 -330 Weight 112.9 kg 109.5 kg Intake: IV 170 170 40 0.9 120 120 40 cefTRIAXone 1 gm In 50 50 Sodium Chloride 0.9% 50 ml @ 100 mls/hr IVPB Q12HR [facility] Rx#:[id number] Oral 200 Output: Urine 2240 875 360 Emesis 10 Other: Voiding Method Indwelling Catheter Indwelling Catheter Indwelling Catheter # Bowel Movements 1 1 # Emeses 1 - Exam Abdomen: Soft, nontender, nondistended - Labs CBC & Chem 7: 09/22/21 04:27 09/22/21 04:27 Labs: Abnormal Lab Results - Last 24 Hours (Table) 09/21/21 09/21/21 09/21/21 Range/Units 12:54 12:54 21:48 Hct 49.2 H 50.7 H (34.0-46.0) % MCV 100.8 H 101.1 H (80.0-100.0) fL MCHC 28.5 L 28.5 L (31.0-37.0) g/dL Potassium (3.5-5.1) mmol/L Carbon Dioxide (22-30) mmol/L BUN (7-17) mg/dL Creatinine (0.52-1.04) mg/dL Glucose (74-99) mg/dL Calcium (8.4-10.2) mg/dL Procalcitonin 0.12 H (0.02-0.09) ng/mL 09/22/21 09/22/21 Range/Units 04:27 04:27 Hct 47.1 H (34.0-46.0) % MCV 100.2 H (80.0-100.0) fL MCHC 29.3 L (31.0-37.0) g/dL Potassium 3.2 L (3.5-5.1) mmol/L Carbon Dioxide 42 H* (22-30) mmol/L BUN 30 H (7-17) mg/dL Creatinine 1.10 H (0.52-1.04) mg/dL Glucose 101 H (74-99) mg/dL Calcium 7.9 L (8.4-10.2) mg/dL Procalcitonin (0.02-0.09) ng/mL Assessment and Plan (1) GI bleed Narrative/Plan: 76-year-old female with GI bleed. Patient remains in the ICU. Pulmonary status seems improved. Continue optimization of pulmonary status and we'll plan upper and lower endoscopy when stable. Current Visit: Yes Status: Acute Code(s): K92.2 - GASTROINTESTINAL HEMORRHAGE, UNSPECIFIED SNOMED Code(s): 94728386
[2021-09-22] MEDS: BUDESONIDE 1 MG/2 ML NEBU INHALATION SCH ×2 (11:26→20:42)
[2021-09-22] MEDS: FORMOTEROL FUMARATE 20 MCG/2 ML NEBU INHALATION SCH ×2 (11:26→20:42)
[2021-09-22 12:31] LABS: HGB 13.8 gm/dL (11.4-16.0); Hypochromasia Marked; MCH 29.9 pg (25.0-35.0); MCHC 29.4 g/dL (31.0-37.0); MCV 101.7 fL (80.0-100.0); Macrocytosis Slight; Mean Platelet Volume 8.3; Platelet Count 149 k/uL (150-450); RBC 4.62 m/uL (3.80-5.40); RDW 15.2 % (11.5-15.5); WBC 6.3 k/uL (3.8-10.6)
--- NOTE | 2021-09-22 13:15 | P.PN ---
Subjective Progress Note Date: 09/22/21 Principal diagnosis: Respiratory failure. Pulmonary consult dated 09/20/2021. This is a 76-year-old female who was seen in the emergency room, for shortness of breath. The patient apparently has a history of hypertension, and came to the emergency department complaining of increasing shortness of breath for about 7 days prior to her visit in the ER. There was no chest pain. The patient was seen in the ER, and placed on BiPAP. I was called by the ER physician, for further instructions. The patient had a very abnormal initial blood gas. The patient currently is on saline at KVO, BiPAP, with settings of 16/5, and 60%, and her saturations were 90% on those settings. A repeat blood gas showed a pO2 of 57, pCO2 of 88, and a pH is 7.17. Initial blood gases showed a pO2 of 92, a pCO2 of 98, and a pH is 7.10. I did tell the ER doctor, to make sure the patient received just enough oxygen, so saturations were in the 85-90% range. The patient will be transferred to the intensive care unit for further monitoring and management. Her white count was 8.3, hemoglobin 16.7, hematocrit 58.1, with a normal platelet count. D-dimer was 1.93. Sodium 141, potassium 5, chlorides 103, CO2 30, BUN 49, creatinine 1.16. AST was 56, ALT 80, and troponin was 0.050. N-terminal proBNP was 5350. Chest x-ray was consistent with cardiomegaly and CHF. CT angiogram was negative for pulmonary embolism, and did show changes that were consistent with CHF. The patient apparently has a history of sinus cavity cancer, hypertension, skin cancer, obesity, and depression. She was a former smoker. Progress note dated 09/21/2021. 76-year-old female seen yesterday in the emergency department for shortness of breath. The patient is currently in the intensive care unit. Blood gases done on 60% oxygen, show pO2 77, pCO2 of 58, and a pH is 7.43. That was likely when she was on BiPAP at 16/5, and 60%. Currently, she is on 8 L high flow nasal cannula. She is getting saline at KVO. Her Lasix dose will be decreased today. She's getting saline changed to D5 W. White count is 8.2, hemoglobin 14, hematocrit 50, and platelet count 178,000. Sodium 148, potassium 4.7, chlorides 105, CO2 38, anion gap 5, BUN 57, creatinine 1.04. Calcium is 8. AST and ALT are 49 and 52 respectively. Chest x-ray continues to show bilateral infiltrates. Progress note dated 09/22/2021. 76-year-old female with history of shortness of breath. She's currently in the ICU, room 253. She remains on 10 L high flow oxygen, her in the daytime, and BiPAP, he should evening, with settings of 16/5 and 50%. The patient's getting dextrose at 10 mL an hour. The patient is on Solu-Medrol 60 mg every 6 hours, as well as Pulmicort and formoterol twice a day. We will DC the Rocephin after today, given the very low pro-calcitonin level. The patient's white count of 6.3, hemoglobin 13.8, hematocrit 47, and platelet count 249,000. Sodium 144, potassium 3.2, chlorides 101, CO2 42, BUN 30, creatinine 1.10. Pro-calcitonin level was 0.12. Microbiologic studies are thus far negative. Chest x-ray shows diffuse small airspace opacities, likely consistent with fluid overload/CHF. Objective - Vital Signs Vital signs: Vital Signs Temp 100.0 F H 09/22/21 12:00 Pulse 65 09/22/21 12:00 Resp 20 09/22/21 12:00 BP 132/92 09/22/21 12:00 Pulse Ox 94 L 09/22/21 12:00 FiO2 60 09/22/21 08:00 Intake & Output 09/21/21 09/22/21 09/22/21 18:59 06:59 18:59 Intake Total 370 170 260 Output Total 2240 875 670 Balance -2620 -625 -410 Weight 112.9 kg 109.5 kg Intake: IV 170 170 60 0.9 120 120 60 cefTRIAXone 1 gm In 50 50 Sodium Chloride 0.9% 50 ml @ 100 mls/hr IVPB Q12HR [facility] Rx#:[id number] Oral 200 200 Output: Urine 2240 875 660 Emesis 10 Other: Voiding Method Indwelling Catheter Indwelling Catheter Indwelling Catheter # Bowel Movements 1 1 # Emeses 1 - Exam Oriented 3, no acute distress. No conversational dyspnea, or use of accessory muscles. HEENT examination is grossly unremarkable. Neck supple. Full range of motion. No adenopathy thyromegaly or neck vein distention. Cardiovascular examination reveals regular rhythm rate. S1-S2 normal. No S3 or S4. No discernible murmur noted. Heart sounds are distant. Heart rate 65 bpm. Lungs reveal diffuse rhonchi and crackles. Breath sounds equal. She is not taking deep breaths. No wheezes. Saturations are 94% on 10 L high flow O2. Abdomen is obese, without bowel sounds. No tenderness. Extremities reveal lower extremity edema, 1+. No cyanosis or clubbing. Skin reveals chronic venous stasis changes to the lower extremities. Neurologic examination is brief but nonfocal. - Labs CBC & Chem 7: 09/22/21 12:15 09/22/21 04:27 Labs: Abnormal Lab Results - Last 24 Hours (Table) 09/21/21 09/21/21 09/21/21 Range/Units 12:54 12:54 21:48 Hct 49.2 H 50.7 H (34.0-46.0) % MCV 100.8 H 101.1 H (80.0-100.0) fL MCHC 28.5 L 28.5 L (31.0-37.0) g/dL Plt Count (150-450) k/uL Potassium (3.5-5.1) mmol/L Carbon Dioxide (22-30) mmol/L BUN (7-17) mg/dL Creatinine (0.52-1.04) mg/dL Glucose (74-99) mg/dL Calcium (8.4-10.2) mg/dL Procalcitonin 0.12 H (0.02-0.09) ng/mL 09/22/21 09/22/21 09/22/21 Range/Units 04:27 04:27 12:15 Hct 47.1 H 47.0 H (34.0-46.0) % MCV 100.2 H 101.7 H (80.0-100.0) fL MCHC 29.3 L 29.4 L (31.0-37.0) g/dL Plt Count 149 L (150-450) k/uL Potassium 3.2 L (3.5-5.1) mmol/L Carbon Dioxide 42 H* (22-30) mmol/L BUN 30 H (7-17) mg/dL Creatinine 1.10 H (0.52-1.04) mg/dL Glucose 101 H (74-99) mg/dL Calcium 7.9 L (8.4-10.2) mg/dL Procalcitonin (0.02-0.09) ng/mL Assessment and Plan Assessment: Shortness of breath, likely related to underlying CHF. History of hypertension. Chronic hypercapnic respiratory failure. Elevated troponin, rule out myocardial ischemia. History of sinus cavity cancer. History of skin cancer. History of depression. Prior history of tobacco use. Polycythemia, likely secondary to chronic hypoxemic respiratory failure. Possible history of sleep apnea syndrome and/or Pickwickian syndrome. Plan: Plan dated 09/20/2021. The patient was evaluated in the emergency room. She was seen in room 6. She remains on BiPAP, with settings of 16/5 and 60%. I told respiratory to maintain saturations between 85 and 90%. The patient had a repeat arterial blood gas. The patient should be receiving Lasix. If not or ready done, the patient should be seen by cardiology. We will continue to follow make recommendations where appropriate. Prognosis is guarded. The patient is transferred to the intensive care unit for further monitoring and management. Plan dated 09/21/2021. The patient appears to be doing a bit better today than yesterday. Yesterday, she was seen in the emergency room. A gases are stable for her. She is a CO2 retainer. She is on 8 L high flow nasal O2. I asked the respiratory therapist to maintain a saturation between 88 and 92%. She can also use BiPAP with settin gs of 16/5 and 60%. Today, her Lasix dose is reduced. She is mildly hypernatremic. Her saline IV is changed to D5 W. We will continue to follow make recommendations where appropriate. Prognosis is certainly guarded. Plan dated 09/22/2021. The patient will have her Rocephin discontinued after today's dose. The pro- calcitonin level was low. In addition, for increasing respirations and diffi culty breathing, we will add Solu-Medrol, 60 mg every 6 hours, and Pulmicort and formoterol, with coming. Hopefully we can wean down the FiO2. Labs, x-rays, and medications are reviewed. We will continue to follow the patient and make recommendations where appropriate. Time with Patient: Less than 30
--- NOTE | 2021-09-22 16:25 | P.PN ---
Progress Note - Text Progress Note Date: 09/22/21 Chief Complaint: Short of breath History of presenting complaint: This is a pleasant [address] Len Tran. 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 Has had about 19 surgeries last one being about 3 years ago. 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 Patient had a MRI in March 2020 that did not show any recurrence. Patient had some shortness of breath on and off for about a month. More so in the last 2 days. Congested cough. No obvious fever and chills. Tired. Patient dozes off very easily. Requiring BiPAP in the ER. Patient's daughter the bedside to give most of the history. Patient rather tired and lethargic. Admitted with pneumonia, acute hypoxic respiratory failure, questionable CHF. BiPAP. IV ceftriaxone. IV Lasix. Bronchodilators. Admitted to ICU September 21: ICU: Patient getting bronchodilators. On 10 L of nasal cannula. IV Lasix 40 mg daily. [place] to be predominant pneumonia. Able to converse. Rober bauman at the bedside. Patient answering questions. Tired. September 22: ICU: On 6 L nasal cannula. On a liquid diet. Placed on IV Lasix by pulmonary. Ceftriaxone discontinued by pulmonary. Patient's sister the bedside. Discussed. Active Medications Acetaminophen (Acetaminophen Tab 500 Mg Tab) 500 mg PO Q6HR PRN PRN Reason: Fever and/ or Pain Acetazolamide (Acetazolamide 250 Mg Tab) 250 mg PO BID [facility] Last Admin: 09/22/21 08:40 Dose: 250 mg Albuterol/Ipratropium (Ipratropium-Albuterol 3 Ml Neb) 3 ml INHALATION RT-QID [facility] Last Admin: 09/22/21 16:17 Dose: 3 ml Albuterol/Ipratropium (Ipratropium-Albuterol 3 Ml Neb) 3 ml INHALATION RT-Q2H PRN PRN Reason: Shortness Of Breath Or Wheezing Amiodarone HCl (Amiodarone 200 Mg Tab) 200 mg PO TID [facility] Last Admin: 09/22/21 15:47 Dose: 200 mg Budesonide (Budesonide 1 Mg/2 Ml Nebu) 1 mg INHALATION RT-BID [facility] Last Admin: 09/22/21 11:26 Dose: Not Given Cholecalciferol (Cholecalciferol 25 Mcg (1000 Iu) Tablet) 50 mcg PO DAILY [facility] Last Admin: 09/22/21 08:41 Dose: 50 mcg Escitalopram Oxalate (Escitalopram 20 Mg Tab) 20 mg PO HS [facility] Last Admin: 09/21/21 20:17 Dose: 20 mg Formoterol Fumarate (Formoterol Fumarate 20 Mcg/2 Ml Nebu) 20 mcg INHALATION RT-BID [facility] Last Admin: 09/22/21 11:26 Dose: Not Given Furosemide (Furosemide 10 Mg/Ml 4 Ml Vial) 40 mg IV DAILY [facility] Last Admin: 09/22/21 08:41 Dose: 40 mg Dextrose/Water (Dextrose 5%-Water Iv Soln) 1,000 mls @ 20 mls/hr IV .Q24H [facility] Last Admin: 09/22/21 10:07 Dose: 20 mls/hr Methylprednisolone Sodium Succinate (Methylprednisolone Sod Succi 125 Mg/2 Ml Vial) 60 mg IV Q8H [facility] Last Admin: 09/22/21 10:07 Dose: 60 mg Metoprolol Succinate (Metoprolol Succinate (Er) 25 Mg Tab.Er.24h) 25 mg PO DAILY [facility] Last Admin: 09/22/21 08:41 Dose: 25 mg Miscellaneous Information (Potassium Replacement Protocol 1 Each Misc) 1 each MISCELLANE DAILY PRN; Protocol PRN Reason: Per Protocol Past medical history to include: Hypertension, sinus cavity cancer radiation treatment 1990 at least 19 surgeries last one being in 2 years ago. MRI in March 2020 was negative, depression Social history: Lives alone., Smoked a pack a day for 40 years stopped 20 years ago. No alcohol. Physical examination: VITAL SIGNS: 100, 65, 20, 132/92, 99% on 5 L GENERAL: , reclining, awake, less shortness of breath EYES: Left eye is not present l. HEENT: External appearance of nose and ears normal, some facial asymmetry NECK: JVD not raised; masses not palpable. HEART: First and second heart sounds are normal; some edema present LUNGS: Rate increased, Diminished breath sounds ABDOMEN: Soft, nontender, liver spleen not palpable, no masses palpable. PSYCH: Answering questions appropriately NEUROLOGICAL: Cranial nerves grossly intact; no facial asymmetry, power and sensation grossly intact, left eye absent INVESTIGATIONS, reviewed in the clinical context: September 22: White count 6.3 hemoglobin 13.8 potassium 3.2 BUN 30 creatinine 1.10. Pro-calcitonin 0.12 September 21: White count 7.4 hemoglobin 14 sodium 148 potassium 4.7 creatinine 1.04. BUN 57 white count 38 2-D echocardiogram: EF 60-65%. Moderate concentric LVH. Severe pulmonary hypertension. White count 8.3 hemoglobin 16.7 platelets 203 ABG: PH 7.17, pCO2 88, pO2 57 Potassium 5. 49 creatinine 1.16 Troponin I 0.050 proBNP 5350 Influenza type A, influenza type B, RSV, COVID-19: Not detected EKG tracing personally reviewed by me-normal sinus rhythm. Chest x-ray film personally reviewed by me-pulmonary edema versus infiltrates chest CTA: Large pulmonary arteries. No PE. Coarse infiltrates. Atelectasis. Some elevation of right diaphragm. Assessment and plan -Probable pneumonia suspected gram-negative organism. Ceftriaxone 1 g every 12 . Procalcitonin 0.12. Antibiotic discontinued by pulmonary -Acute hypoxic and hypercapnic respiratory failure secondary to pneumonia: Slow to respond BiPAP. 5 L nasal cannula -Acute COPD exacerbation and a previous smoker IV Solu-Medrol. Bronchodilators -Acute hypoxic hypercapnic encephalopathy: Improvement Follow clinically -questionable pulmonary edema . IV Lasix. 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 -Metabolic alkalosis from volume contraction Diamox -Essential hypertension Toprol-XL 25 mg a day -Depression Lexapro -Full code Antibiotics discontinued by pulmonary. There was also added IV Lasix. Continue Diamox. On IV Solu-Medrol. Bronchodilators. Discussed with patient's sister the bedside.
[2021-09-22] MEDS: ESCITALOPRAM 20 MG TAB PO SCH (21:13)
[2021-09-22] MEDS ORDERED: BENZOCAINE/MENTHOL LOZENG 1 EACH LOZENGE MUCOUS MEM PRN (23:27)
[2021-09-23] MEDS: methylPREDNISolone SOD SUCCI 125 MG/2 ML VIAL IV SCH ×3 (02:06→18:43)
[2021-09-23] MEDS: ACETAMINOPHEN TAB 500 MG TAB PO PRN ×2 (05:29→22:28)
--- NOTE | 2021-09-23 07:26 | XR ---
EXAMINATION TYPE: XR chest 1V portable DATE OF EXAM: 09/23/2021 Comparison: 09/22/2021 Clinical History: 76-year-old female follow-up pulmonary edema Findings: Heart borderline enlarged. Diffuse interstitial density persists. Mild breathing motion. No harinder pro gressive consolidation. No sizable pleural effusion seen. Impression: Borderline cardiomegaly and continued diffuse interstitial densities.
[2021-09-23] MEDS: CHOLECALCIFEROL 25 MCG (1000 IU) TABLET PO SCH (08:05)
[2021-09-23] MEDS: acetaZOLAMIDE 250 MG TAB PO SCH ×2 (08:05→20:44)
[2021-09-23] MEDS: FUROSEMIDE 10 MG/ML 4 ML VIAL IV SCH ×2 (08:05→20:44)
[2021-09-23] MEDS: AMIODARONE 200 MG TAB PO SCH ×3 (08:05→20:44)
[2021-09-23 08:10] LABS: HCT 50.1 % (34.0-46.0); HGB 13.8 gm/dL (11.4-16.0); Hypochromasia Marked; MCH 28.1 pg (25.0-35.0); MCHC 27.5 g/dL (31.0-37.0); MCV 102.1 fL (80.0-100.0); Macrocytosis Slight; Mean Platelet Volume 8.5; Platelet Count 166 k/uL (150-450); RBC 4.91 m/uL (3.80-5.40); RDW 14.8 % (11.5-15.5); WBC 6.9 k/uL (3.8-10.6)
[2021-09-23 08:21] LABS: Calcium 8.1 mg/dL (8.4-10.2); Potassium 3.4 mmol/L (3.5-5.1)
[2021-09-23] MEDS: FORMOTEROL FUMARATE 20 MCG/2 ML NEBU INHALATION SCH ×2 (08:39→19:42)
[2021-09-23] MEDS: BUDESONIDE 1 MG/2 ML NEBU INHALATION SCH ×2 (08:39→19:31)
[2021-09-23] MEDS: IPRATROPIUM-ALBUTEROL 3 ML NEB INHALATION SCH ×4 (08:40→19:31)
[2021-09-23] MEDS ORDERED: guaiFENesin-Coden 100-10MG/5ML 10 ML CUP PO PRN (09:22)
[2021-09-23] MEDS: METOPROLOL SUCCINATE (ER) 25 MG TAB.ER.24H PO SCH (11:36)
[2021-09-23] MEDS: POTASSIUM CHLORIDE ER 20 MEQ TAB.ER PO SCH ×2 (11:36→16:29)
[2021-09-23] MEDS: DEXTROSE 5% IN WATER 1,000 ML IV SCH (11:41)
--- NOTE | 2021-09-23 12:13 | P.PN ---
Subjective Progress Note Date: 09/23/21 CHIEF COMPLAINT: CHF exacerbation HISTORY OF PRESENT ILLNESS: Surgical service following regards to GI bleeding. Patient remains in the ICU. Pulmonary service has increased patient's Lasix to 40 mg IV every 12 hours and she is on IV Solu-Medrol. She is currently on 6 L of oxygen. Patient has had no further bloody stools. Tolerating diet. Hemoglobin is staying stable. Did have a temp of 100 yesterday afternoon. Patient had reported to the nurse that she had abdominal pain with coughing. WBC is 6.9 Hgb 13.8 platelets 166 sodium 141 potassium is 3.4 creatinine is 1. Patient's potassium is being replaced. PHYSICAL EXAM: VITAL SIGNS: Reviewed. GENERAL: Well-developed in no acute distress. HEENT: No sclera icterus. Extraocular movements grossly intact. Moist buccal mucosa. Head is atraumatic, normocephalic. ABDOMEN: Soft. Nondistended. Nontender. NEUROLOGIC: Sleeping comfortably ASSESSMENT: 1. Acute GI bleed with bloody stools 2. CHF exacerbation 3. Hypokalemia PLAN: -Patient will need EGD and colonoscopy when she is medically stable -Continue ICU management -Continue supportive care -Continue diuretics Physician [employer] note has been reviewed by physician. Signing provider agrees with the documented findings, assessment, and plan of care. I have personally seen and examined the patient, reviewed the ONLINE ACTIVIST /PAs history, exam and MDM and agree with the assessment and plan as written. Based on total visit time, I have performed more than 50% of the visit. As above: The patient doing fairly well. No active bleeding. Tolerating liquid diet. Hemoglobin stable at 13.8. Continue pulmonary optimization. Upper and lower endoscopy later this hospitalization. Objective - Vital Signs Vital signs: Vital Signs Temp 98.1 F 09/23/21 08:00 Pulse 56 L 09/23/21 11:36 Resp 27 H 09/23/21 11:00 BP 115/57 09/23/21 11:00 Pulse Ox 93 L 09/23/21 11:00 FiO2 50 09/23/21 00:09 Intake & Output 09/22/21 09/23/21 09/23/21 18:59 06:59 18:59 Intake Total 520 660 40 Output Total 983 687 445 Balance -465 35 -405 Weight 109.8 kg 109.8 kg Intake: IV 120 120 40 0.9 120 120 10 Dextrose 5% in Water 1, 30 000 ml @ 20 mls/hr IV . Q24H [facility] Rx#:[id number] Oral 400 540 Output: Urine 975 515 445 Emesis 10 Other: Voiding Method Indwelling Catheter Indwelling Catheter # Bowel Movements 1 1 # Emeses 1 - Labs CBC & Chem 7: 09/23/21 07:51 09/23/21 07:51 Labs: Abnormal Lab Results - Last 24 Hours (Table) 09/22/21 09/23/21 09/23/21 Range/Units 12:15 07:51 07:51 Hct 47.0 H 50.1 H (34.0-46.0) % MCV 101.7 H 102.1 H (80.0-100.0) fL MCHC 29.4 L 27.5 L (31.0-37.0) g/dL Plt Count 149 L (150-450) k/uL Potassium 3.4 L (3.5-5.1) mmol/L Carbon Dioxide 36 H (22-30) mmol/L BUN 27 H (7-17) mg/dL Glucose 129 H (74-99) mg/dL Calcium 8.1 L (8.4-10.2) mg/dL
--- NOTE | 2021-09-23 15:01 | P.PN ---
Subjective Progress Note Date: 09/23/21 76-year-old female patient was being seen in follow-up in the intensive care unit. The patient is obese with a BMI of 40.3. The patient has also history of obstructive sleep apnea/obesity hypoventilation syndrome and addition to chronic hypercapnic respiratory failure and hypoxic respiratory failure. The patient is having worsening shortness of breath secondary to decompensated CHF. The patient otherwise is stable. The patient is alternating between BiPAP at a pressure of 60/5 with an FiO2 of 50% and oxygen at 4 L per minute nasal cannula. The patient remains on Lasix 40 g IV every 24 hours. hours. Repeat chest x- ray from today showed cardiomegaly and ongoing continue with diffuse interst itial densities consistent with CHF. The patient is responding to diuretics. The patient was -2.5 L in fluid balance over the past 24 hours and currently the patient is still producing adequate amount of urine output. BUN is at 27 with a creatinine of 1 and sodium level is at 141. The white cell count is at 6.9 with a hemoglobin of 13.8. No other significant events overnight. IV fluids are c urrently at KVO. Patient is also on Diamox to counteract underlying metabolic alkalosis developing with diuresis. Objective - Vital Signs Vital signs: Vital Signs Temp 98.1 F 09/23/21 08:00 Pulse 57 L 09/23/21 09:00 Resp 23 09/23/21 09:00 BP 127/72 09/23/21 09:00 Pulse Ox 98 09/23/21 09:00 FiO2 50 09/23/21 00:09 Intake & Output 09/22/21 09/23/21 09/23/21 18:59 06:59 18:59 Intake Total 520 660 30 Output Total 985 625 70 Balance -465 35 -40 Weight 109.8 kg Intake: IV 120 120 30 0.9 120 120 10 Dextrose 5% in Water 1, 20 000 ml @ 20 mls/hr IV . Q24H [facility] Rx#:[id number] Oral 400 540 Output: Urine 975 625 70 Emesis 10 Other: Voiding Method Indwelling Catheter Indwelling Catheter # Bowel Movements 1 1 # Emeses 1 - Exam Oriented 3, no acute distress. No conversational dyspnea, or use of accessory muscles. The patient is currently on 4 L of nasal cannula Head exam was generally normal. There was no scleral icterus or corneal arcus. Mucous membranes were moist. HEENT examination is grossly unremarkable. Neck supple. Full range of motion. No adenopathy thyromegaly or neck vein distention. Cardiovascular examination reveals regular rhythm rate. S1-S2 normal. No S3 or S4. No discernible murmur noted. Heart sounds are distant. Lungs reveal diffuse rhonchi and crackles. Breath sounds equal. She is not taking deep breaths. No wheezes. The patient continues to have crackles at lung bases bilaterally Abdomen is obese, without bowel sounds. No tenderness. Extremities reveal lower extremity edema, 1+. No cyanosis or clubbing. Skin reveals chronic venous stasis changes to the lower extremities. Neurologic examination is brief but nonfocal. - Labs CBC & Chem 7: 09/23/21 07:51 09/23/21 07:51 Labs: Abnormal Lab Results - Last 24 Hours (Table) 09/22/21 09/23/21 09/23/21 Range/Units 12:15 07:51 07:51 Hct 47.0 H 50.1 H (34.0-46.0) % MCV 101.7 H 102.1 H (80.0-100.0) fL MCHC 29.4 L 27.5 L (31.0-37.0) g/dL Plt Count 149 L (150-450) k/uL Potassium 3.4 L (3.5-5.1) mmol/L Carbon Dioxide 36 H (22-30) mmol/L BUN 27 H (7-17) mg/dL Glucose 129 H (74-99) mg/dL Calcium 8.1 L (8.4-10.2) mg/dL Assessment and Plan Plan: Acute hypoxic respiratory failure, currently on oxygen at 4 L of oxygen by nasal cannula. The patient is also utilizing BiPAP overnight at a pressure of 16/5 cm of water. Acute on chronic hypoxic and hypercapnic respiratory failure, most recent blood gases showed improvement and acid base status Possible history of sleep apnea syndrome and/or Pickwickian syndrome. The patient is currently using BiPAP at a pressure of 16/5 cm of water and FiO2 of 50% overnight. COPD exacerbation , improving Severe pulmonary hypertension with a PA pressure of around at least 69 mmHg Right hemidiaphragmatic elevation, possible paralysis Previous history of insertion and removal tracheostomy tube and a PEG tube as part of her treatment of sinus cancer Shortness of breath, likely related to underlying CHF. History of hypertension. Chronic hypercapnic respiratory failure. Elevated troponin, rule out myocardial ischemia. 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 History of depression. Prior history of tobacco use. Polycythemia, likely secondary to chronic hypoxemic respiratory failure. Her GI bleed, the patient was having bright red blood per rectum, hemoglobin today stable at 13.8 and general surgery on the case. Plan: Patient is assessed versus this is stable. Noted the patient's respiratory failure is multifactorial due to above-mentioned comorbidities. Continue diuresis and she is on Lasix to 40 units every 12 hours Continue Diamox Monitor electrolytes Wean down FiO2 Repeat chest x-ray to morning We'll need a BiPAP machine in time of discharge Continued IV Solu Medrol for another 24 hours We'll continue to follow
[2021-09-23] MEDS: guaiFENesin 600 MG TABLET.ER PO SCH ×2 (16:29→20:44)
--- NOTE | 2021-09-23 20:41 | P.PN ---
Progress Note - Text Progress Note Date: 09/23/21 Chief Complaint: Short of breath History of presenting complaint: This is a pleasant [address] Len Tran. 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 Has had about 19 surgeries last one being about 3 years ago. 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 Patient had a MRI in March 2020 that did not show any recurrence. Patient had some shortness of breath on and off for about a month. More so in the last 2 days. Congested cough. No obvious fever and chills. Tired. Patient dozes off very easily. Requiring BiPAP in the ER. Patient's daughter the bedside to give most of the history. Patient rather tired and lethargic. Admitted with pneumonia, acute hypoxic respiratory failure, questionable CHF. BiPAP. IV ceftriaxone. IV Lasix. Bronchodilators. Admitted to ICU September 21: ICU: Patient getting bronchodilators. On 10 L of nasal cannula. IV Lasix 40 mg daily. [place] to be predominant pneumonia. Able to converse. Rober httheo at the bedside. Patient answering questions. Tired. September 22: ICU: On 6 L nasal cannula. On a liquid diet. Placed on IV Lasix by pulmonary. Ceftriaxone discontinued by pulmonary. Patient's sister the bedside. Discussed. September 23: ICU: This morning on 6 L nasal cannula. Unclear liquid diet because of large bloody bowel movement on the night of September 20. Being followed by surgery. Breathing better. On IV Lasix. Off antibiotics. Daughter the bedside. Active Medications Acetaminophen (Acetaminophen Tab 500 Mg Tab) 500 mg PO Q6HR PRN PRN Reason: Fever and/ or Pain Last Admin: 09/23/21 05:29 Dose: 500 mg Acetazolamide (Acetazolamide 250 Mg Tab) 250 mg PO BID [facility] Last Admin: 09/23/21 08:05 Dose: 250 mg Albuterol/Ipratropium (Ipratropium-Albuterol 3 Ml Neb) 3 ml INHALATION RT-QID [facility] Last Admin: 09/23/21 19:31 Dose: 3 ml Albuterol/Ipratropium (Ipratropium-Albuterol 3 Ml Neb) 3 ml INHALATION RT-Q2H PRN PRN Reason: Shortness Of Breath Or Wheezing Amiodarone HCl (Amiodarone 200 Mg Tab) 200 mg PO TID [facility] Last Admin: 09/23/21 16:29 Dose: 200 mg Benzocaine/Menthol (Benzocaine/Menthol Lozeng 1 Each Lozenge) 1 each MUCOUS MEM Q4HR PRN PRN Reason: Cough Last Admin: 09/22/21 23:30 Dose: 1 each Budesonide (Budesonide 1 Mg/2 Ml Nebu) 1 mg INHALATION RT-BID [facility] Last Admin: 09/23/21 19:31 Dose: 1 mg Cholecalciferol (Cholecalciferol 25 Mcg (1000 Iu) Tablet) 50 mcg PO DAILY [facility] Last Admin: 09/23/21 08:05 Dose: 50 mcg Escitalopram Oxalate (Escitalopram 20 Mg Tab) 20 mg PO HS [facility] Last Admin: 09/22/21 21:13 Dose: 20 mg Formoterol Fumarate (Formoterol Fumarate 20 Mcg/2 Ml Nebu) 20 mcg INHALATION RT-BID [facility] Last Admin: 09/23/21 19:42 Dose: 20 mcg Furosemide (Furosemide 10 Mg/Ml 4 Ml Vial) 40 mg IV Q12HR [facility] Guaifenesin (Guaifenesin 600 Mg Tablet.Er) 1,200 mg PO Q12HR [facility] Last Admin: 09/23/21 16:29 Dose: 1,200 mg Guaifenesin/Codeine Phosphate (Guaifenesin-Coden 100-10mg/5ml 10 Ml Cup) 10 ml PO Q6HR PRN PRN Reason: Cough Last Admin: 09/23/21 12:27 Dose: 10 ml Dextrose/Water (Dextrose 5%-Water Iv Soln) 1,000 mls @ 20 mls/hr IV .Q24H [facility] Last Admin: 09/23/21 11:41 Dose: 20 mls/hr Methylprednisolone Sodium Succinate (Methylprednisolone Sod Succi 125 Mg/2 Ml Vial) 60 mg IV Q8H [facility] Last Admin: 09/23/21 18:43 Dose: 60 mg Metoprolol Succinate (Metoprolol Succinate (Er) 25 Mg Tab.Er.24h) 25 mg PO DAILY [facility] Last Admin: 09/23/21 11:36 Dose: Not Given Miscellaneous Information (Potassium Replacement Protocol 1 Each Misc) 1 each MISCELLANE DAILY PRN; Protocol PRN Reason: Per Protocol Past medical history to include: Hypertension, sinus cavity cancer radiation treatment 1990 at least 19 surgeries last one being in 2 years ago. MRI in March 2020 was negative, depression Social history: Lives alone., Smoked a pack a day for 40 years stopped 20 years ago. No alcohol. Physical examination: VITAL SIGNS: 98.1, 56, 16, 1 27 x 74, 95% on 6 L GENERAL: , reclining, awake, breathing better EYES: Left eye is not present l. HEENT: External appearance of nose and ears normal, some facial asymmetry NECK: JVD not raised; masses not palpable. HEART: First and second heart sounds are normal; some edema present LUNGS: Rate increased, Diminished breath sounds ABDOMEN: Soft, nontender, liver spleen not palpable, no masses palpable. PSYCH: Answering questions appropriately NEUROLOGICAL: Cranial nerves grossly intact; no facial asymmetry, power and sensation grossly intact, left eye absent INVESTIGATIONS, reviewed in the clinical context: September 23: Obesity 6.9 hemoglobin 13.8 potassium 3.4 creatinine 1.0 September 22: White count 6.3 hemoglobin 13.8 potassium 3.2 BUN 30 creatinine 1.10. Pro-calcitonin 0.12 September 21: White count 7.4 hemoglobin 14 sodium 148 potassium 4.7 creatinine 1.04. BUN 57 white count 38 2-D echocardiogram: EF 60-65%. Moderate concentric LVH. Severe pulmonary hypertension. White count 8.3 hemoglobin 16.7 platelets 203 ABG: PH 7.17, pCO2 88, pO2 57 Potassium 5. 49 creatinine 1.16 Troponin I 0.050 proBNP 5350 Influenza type A, influenza type B, RSV, COVID-19: Not detected EKG tracing personally reviewed by me-normal sinus rhythm. Chest x-ray film personally reviewed by me-pulmonary edema versus infiltrates chest CTA: Large pulmonary arteries. No PE. Coarse infiltrates. Atelectasis. Some elevation of right diaphragm. Assessment and plan -Probable pneumonia suspected gram-negative organism. Ceftriaxone 1 g every 12 . Procalcitonin 0.12. Antibiotic discontinued by pulmonary -Acute hypoxic and hypercapnic respiratory failure secondary to pneumonia and fluid overload: Slow to respond BiPAP at night. 6 L nasal cannula -Possibly sleep apnea syndrome and/or pickwickian syndrome. Using BiPAP at night -Acute COPD exacerbation and a previous smoker IV Solu-Medrol 60 mg every 8. Bronchodilators -Acute hypoxic hypercapnic encephalopathy: Much improved Follow clinically -questionable pulmonary edema . IV Lasix. 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 -Metabolic alkalosis from volume contraction Diamox -Essential hypertension Toprol-XL 25 mg a day -Depression Lexapro -Full code IV Lasix. Continue Diamox. On IV Solu-Medrol. Bronchodilators. Labs the patient sit up in a chair. Incentive spirometry.
[2021-09-23] MEDS: ESCITALOPRAM 20 MG TAB PO SCH (20:44)
[2021-09-24] MEDS: methylPREDNISolone SOD SUCCI 125 MG/2 ML VIAL IV SCH (03:35)
[2021-09-24 06:14] LABS: Basophils % (A) 0 %; Eosinophils % (A) 0 %; HCT 43.4 % (34.0-46.0); HGB 12.4 gm/dL (11.4-16.0); Hypochromasia Marked; Lymphocytes # (A) 0.4 k/uL (1.0-4.8); Lymphocytes % (A) 5 %; MCH 28.9 pg (25.0-35.0); MCHC 28.6 g/dL (31.0-37.0); MCV 100.8 fL (80.0-100.0); Macrocytosis Slight; Monocytes # (A) 0.4 k/uL (0-1.0); Monocytes % (A) 5 %; Neutrophils # (A) 7.4 k/uL (1.3-7.7); Neutrophils % (A) 89 %; Platelet Count 166 k/uL (150-450); RDW 14.8 % (11.5-15.5); WBC 8.3 k/uL (3.8-10.6)
--- NOTE | 2021-09-24 06:55 | XR ---
EXAMINATION TYPE: XR chest 1V portable DATE OF EXAM: 09/24/2021 Comparison: 09/23/2021 Clinical History: 36-year-old female CHF Findings: Low lung volumes. Heart probably borderline enlarged. Developing patchy left lung opacities. Continue d interstitial changes on the right. Silhouetting of the left hemidiaphragm now possibly due to under lying pleural effusion. Impression: Limited due to marked hypoventilatory changes, portable technique, and large patient body habitus. Neno rderline cardiomegaly. Patchy opacities are increasing on the left. Possible new small left pleural e ffusion. Interstitial changes also persist on the right.
[2021-09-24 07:07] LABS: Potassium 3.7 mmol/L (3.5-5.1)
[2021-09-24] MEDS ORDERED: POTASSIUM CHLORIDE ER 20 MEQ TAB.ER PO SCH (08:00)
--- NOTE | 2021-09-24 08:07 | P.PN ---
Subjective Progress Note Date: 09/24/21 76-year-old female patient was being seen in follow-up in the intensive care unit. The patient is obese with a BMI of 40.3. The patient has also history of obstructive sleep apnea/obesity hypoventilation syndrome and addition to chronic hypercapnic respiratory failure and hypoxic respiratory failure. The patient is having worsening shortness of breath secondary to decompensated CHF. The patient otherwise is stable. The patient is alternating between BiPAP at a pressure of 60/5 with an FiO2 of 50% and oxygen at 4 L per minute nasal cannula. The patient remains on Lasix 40 g IV every 24 hours. hours. Repeat chest x- ray from today showed cardiomegaly and ongoing continue with diffuse interst itial densities consistent with CHF. The patient is responding to diuretics. The patient was -2.5 L in fluid balance over the past 24 hours and currently the patient is still producing adequate amount of urine output. BUN is at 27 with a creatinine of 1 and sodium level is at 141. The white cell count is at 6.9 with a hemoglobin of 13.8. No other significant events overnight. IV fluids are c urrently at KVO. Patient is also on Diamox to counteract underlying metabolic alkalosis developing with diuresis. 09/24/2021, the patient is being seen for a follow-up. The patient still being subjected to diuretics and the patient is currently on a combination of Lasix and acetazolamide. The patient is receiving Lasix 40 mg to 12 hours and Diamox 250 mg twice a day. On today's evaluation, the fluid balance over the past 24 hours has been negative 1. liters. The blood work from today shows a white cell count of 8.3 with hemoglobin of 12.4, the creatinine is at 1.4 with a mean of 48 and a serum bicarbonate is 35 with a sodium level of 141. The patient is on oxygen and the patient's chest x-ray from today is showing cardiomegaly and addition to increased pulmonary vessel markings consistent with fluid overload. The findings are essentially the same as compared to yesterday. In terms of his her oxygenation, the patient is currently on O2 at 4 L with a pulse ox of 95%. She is using the BiPAP overnight at a pressure of 16/5 cm of water with an FiO2 of 50%. She is arousable. She is awake. She is communicating. No other significant events overnight. I kept the patient on a combination of bronchodilators and steroids as the patient was quite bronchospastic and wheezy on yesterday's evaluation. Objective - Vital Signs Vital signs: Vital Signs Temp 98.1 F 09/24/21 04:00 Pulse 60 09/24/21 07:00 Resp 18 09/24/21 07:00 BP 86/74 09/24/21 07:00 Pulse Ox 94 L 09/24/21 07:00 FiO2 40 09/23/21 21:03 Intake & Output 09/23/21 09/24/21 09/24/21 18:59 06:59 18:59 Intake Total 760 320 10 Output Total 1440 1285 150 Balance -680 -965 -140 Weight 109.8 kg 108.3 kg Intake: IV 160 120 10 0.9 10 Dextrose 5% in Water 1, 150 120 10 000 ml @ 20 mls/hr IV . Q24H [facility] Rx#:[id number] Oral 600 200 Output: Urine 1440 1285 150 Other: Voiding Method Indwelling Catheter Indwelling Catheter - Exam Oriented 3, no acute distress. No conversational dyspnea, or use of accessory muscles. The patient is currently on 4 L of nasal cannula Head exam was generally normal. There was no scleral icterus or corneal arcus. Mucous membranes were moist. HEENT examination is grossly unremarkable. Neck supple. Full range of motion. No adenopathy thyromegaly or neck vein distention. Cardiovascular examination reveals regular rhythm rate. S1-S2 normal. No S3 or S4. No discernible murmur noted. Heart sounds are distant. Lungs reveal diffuse rhonchi and crackles. Breath sounds equal. She is not taking deep breaths. No wheezes. The patient continues to have crackles at lung bases bilaterally Abdomen is obese, without bowel sounds. No tenderness. Extremities reveal lower extremity edema, 1+. No cyanosis or clubbing. Skin reveals chronic venous stasis changes to the lower extremities. Neurologic examination is brief but nonfocal. - Labs CBC & Chem 7: 09/24/21 05:44 09/24/21 05:44 Labs: Abnormal Lab Results - Last 24 Hours (Table) 09/23/21 09/23/21 09/24/21 Range/Units 07:51 07:51 05:44 Hct 50.1 H (34.0-46.0) % MCV 102.1 H (80.0-100.0) fL MCHC 27.5 L (31.0-37.0) g/dL Lymphocytes # (1.0-4.8) k/uL Potassium 3.4 L (3.5-5.1) mmol/L Carbon Dioxide 36 H 35 H (22-30) mmol/L BUN 27 H 48 H (7-17) mg/dL Creatinine 1.19 H (0.52-1.04) mg/dL Glucose 129 H 147 H (74-99) mg/dL Calcium 8.1 L 8.0 L (8.4-10.2) mg/dL 09/24/21 Range/Units 05:44 Hct (34.0-46.0) % MCV 100.8 H (80.0-100.0) fL MCHC 28.6 L (31.0-37.0) g/dL Lymphocytes # 0.4 L (1.0-4.8) k/uL Potassium (3.5-5.1) mmol/L Carbon Dioxide (22-30) mmol/L BUN (7-17) mg/dL Creatinine (0.52-1.04) mg/dL Glucose (74-99) mg/dL Calcium (8.4-10.2) mg/dL Assessment and Plan Plan: Acute hypoxic respiratory failure, currently on oxygen at 4 L of oxygen by nasal cannula. The patient is also utilizing BiPAP overnight at a pressure of 16/5 cm of water. Acute on chronic hypoxic and hypercapnic respiratory failure, most recent blood gases showed improvement and acid base status Possible history of sleep apnea syndrome and/or Pickwickian syndrome. The patient is currently using BiPAP at a pressure of 16/5 cm of water and FiO2 of 50% overnight. COPD exacerbation , improving Severe pulmonary hypertension with a PA pressure of around at least 69 mmHg Right hemidiaphragmatic elevation, possible paralysis Previous history of insertion and removal tracheostomy tube and a PEG tube as part of her treatment of sinus cancer Shortness of breath, likely related to underlying CHF. History of hypertension. Chronic hypercapnic respiratory failure. Elevated troponin, rule out myocardial ischemia. 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 History of depression. Prior history of tobacco use. Polycythemia, likely secondary to chronic hypoxemic respiratory failure. Her GI bleed, the patient was having bright red blood per rectum, hemoglobin t geovani stable at 13.8 and general surgery on the case. Plan: This continued IV Solu-Medrol and start the patient prednisone burst taper She is less congested on today's examination especially in her lungs and the patient will be kept on diuretics for another day and diuretics will be tapered off as of tomorrow. A repeat blood gases was also done tomorrow to evaluate her acid base status while her being on 4 L of oxygen by nasal cannula. Try to wean down the FiO2 to maintain a saturation above 90% Patient is assessed versus this is stable. Noted the patient's respiratory failure is multifactorial due to above-mentioned comorbidities. Continue diuresis and she is on Lasix to 40 units every 12 hours Continue Diamox Monitor electrolytes Wean down FiO2 Repeat chest x-ray from this morning was noted and there is no major interval change We'll need a BiPAP machine in time of discharge We'll continue to follow
[2021-09-24] MEDS: FORMOTEROL FUMARATE 20 MCG/2 ML NEBU INHALATION SCH ×2 (08:15→19:32)
[2021-09-24] MEDS: BUDESONIDE 1 MG/2 ML NEBU INHALATION SCH ×2 (08:15→19:15)
[2021-09-24] MEDS: IPRATROPIUM-ALBUTEROL 3 ML NEB INHALATION SCH ×4 (08:15→19:15)
[2021-09-24] MEDS: guaiFENesin 600 MG TABLET.ER PO SCH ×2 (09:07→20:24)
[2021-09-24] MEDS: CHOLECALCIFEROL 25 MCG (1000 IU) TABLET PO SCH (09:07)
[2021-09-24] MEDS: METOPROLOL SUCCINATE (ER) 25 MG TAB.ER.24H PO SCH (09:07)
[2021-09-24] MEDS: predniSONE 20 MG TAB PO SCH (09:08)
[2021-09-24] MEDS: AMIODARONE 200 MG TAB PO SCH ×3 (09:08→22:56)
[2021-09-24] MEDS: FUROSEMIDE 10 MG/ML 4 ML VIAL IV SCH ×2 (09:08→20:23)
[2021-09-24] MEDS: acetaZOLAMIDE 250 MG TAB PO SCH ×2 (09:08→20:24)
--- NOTE | 2021-09-24 12:24 | P.PN ---
Subjective Progress Note Date: 09/24/21 CHIEF COMPLAINT: CHF exacerbation HISTORY OF PRESENT ILLNESS: Surgical service following in regards to GI bleeding. Patient remains in the ICU. Patient denies any blood in her stools. She does report mild abdominal pain in the upper abdomen and describes it as bandlike. She is sitting up in bedside chair. She remains on IV Lasix and was switched over to oral prednisone today. Patient is currently on 4 L oxygen satting at 93%. WBC is 8.3 hemoglobin did decrease from 13.8 to 12.4 platelets 166 creatinine 1.19 PHYSICAL EXAM: VITAL SIGNS: Reviewed. GENERAL: Well-developed in no acute distress. HEENT: No sclera icterus. Extraocular movements grossly intact. Moist buccal mucosa. Head is atraumatic, normocephalic. ABDOMEN: Soft. Nondistended. NEUROLOGIC: Sleeping comfortably ASSESSMENT: 1. Acute GI bleed with bloody stools 2. CHF exacerbation 3. Hypokalemia improved PLAN: -Patient will need EGD and colonoscopy when she is medically stable -Continue ICU management -Continue supportive care -Continue diuretics per pulmonary service Physician Carpenter'S Helper note has been reviewed by physician. Signing provider agrees with the documented findings, assessment, and plan of care. I have personally seen and examined the patient, reviewed the DISTRIBUTION ESTIMATOR /PAs history, exam and MDM and agree with the assessment and plan as written. Based on total visit time, I have performed more than 50% of the visit. As above: patient doing better today. Pulmonary status improved. She is cleared for endoscopy by pulmonary. We'll proceed with upper and lower endoscopy tomorrow. Objective - Vital Signs Vital signs: Vital Signs Temp 98.1 F 09/24/21 04:00 Pulse 60 09/24/21 11:55 Resp 16 09/24/21 11:55 BP 86/74 09/24/21 07:00 Pulse Ox 93 L 09/24/21 08:16 FiO2 40 09/23/21 21:03 Intake & Output 09/23/21 09/24/21 09/24/21 18:59 06:59 18:59 Intake Total 760 320 10 Output Total 1440 1285 150 Balance -680 -965 -140 Weight 109.8 kg 108.3 kg Intake: IV 160 120 10 0.9 10 Dextrose 5% in Water 1, 150 120 10 000 ml @ 20 mls/hr IV . Q24H [facility] Rx#:[id number] Oral 600 200 Output: Urine 1440 1285 150 Other: Voiding Method Indwelling Catheter Indwelling Catheter - Labs CBC & Chem 7: 09/24/21 05:44 09/24/21 05:44 Labs: Abnormal Lab Results - Last 24 Hours (Table) 09/24/21 09/24/21 Range/Units 05:44 05:44 MCV 100.8 H (80.0-100.0) fL MCHC 28.6 L (31.0-37.0) g/dL Lymphocytes # 0.4 L (1.0-4.8) k/uL Carbon Dioxide 35 H (22-30) mmol/L BUN 48 H (7-17) mg/dL Creatinine 1.19 H (0.52-1.04) mg/dL Glucose 147 H (74-99) mg/dL Calcium 8.0 L (8.4-10.2) mg/dL
[2021-09-24] MEDS: ACETAMINOPHEN TAB 500 MG TAB PO PRN (13:04)
[2021-09-24] MEDS ORDERED: PEG 3350-NA SULF,BICARB,CL/KCL 4,000 ML BOTTLE PO ONE (16:00)
--- NOTE | 2021-09-24 19:18 | P.PN ---
Progress Note - Text Progress Note Date: 09/24/21 Chief Complaint: Short of breath History of presenting complaint: This is a pleasant [address] Len Tran. 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 Has had about 19 surgeries last one being about 3 years ago. 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 Patient had a MRI in March 2020 that did not show any recurrence. Patient had some shortness of breath on and off for about a month. More so in the last 2 days. Congested cough. No obvious fever and chills. Tired. Patient dozes off very easily. Requiring BiPAP in the ER. Patient's daughter the bedside to give most of the history. Patient rather tired and lethargic. Admitted with pneumonia, acute hypoxic respiratory failure, questionable CHF. BiPAP. IV ceftriaxone. IV Lasix. Bronchodilators. Admitted to ICU September 21: ICU: Patient getting bronchodilators. On 10 L of nasal cannula. IV Lasix 40 mg daily. [place] to be predominant pneumonia. Able to converse. Rober httheo at the bedside. Patient answering questions. Tired. September 22: ICU: On 6 L nasal cannula. On a liquid diet. Placed on IV Lasix by pulmonary. Ceftriaxone discontinued by pulmonary. Patient's sister the bedside. Discussed. September 23: ICU: This morning on 6 L nasal cannula. Unclear liquid diet because of large bloody bowel movement on the night of September 20. Being followed by surgery. Breathing better. On IV Lasix. Off antibiotics. Daughter the bedside. September 24: ICU: Sitting up in a chair. Down to 4 L nasal cannula. He wanted to use incentive spirometry. Unclear liquid diet. For endoscopy tomorrow. Daughter the bedside. Active Medications Acetaminophen (Acetaminophen Tab 500 Mg Tab) 500 mg PO Q6HR PRN PRN Reason: Fever and/ or Pain Last Admin: 09/24/21 13:04 Dose: 500 mg Acetazolamide (Acetazolamide 250 Mg Tab) 250 mg PO BID [facility] Last Admin: 09/24/21 09:08 Dose: 250 mg Albuterol/Ipratropium (Ipratropium-Albuterol 3 Ml Neb) 3 ml INHALATION RT-QID [facility] Last Admin: 09/24/21 14:56 Dose: 3 ml Albuterol/Ipratropium (Ipratropium-Albuterol 3 Ml Neb) 3 ml INHALATION RT-Q2H PRN PRN Reason: Shortness Of Breath Or Wheezing Amiodarone HCl (Amiodarone 200 Mg Tab) 200 mg PO TID [facility] Last Admin: 09/24/21 16:15 Dose: Not Given Benzocaine/Menthol (Benzocaine/Menthol Lozeng 1 Each Lozenge) 1 each MUCOUS MEM Q4HR PRN PRN Reason: Cough Last Admin: 09/22/21 23:30 Dose: 1 each Budesonide (Budesonide 1 Mg/2 Ml Nebu) 1 mg INHALATION RT-BID [facility] Last Admin: 09/24/21 08:15 Dose: 1 mg Cholecalciferol (Cholecalciferol 25 Mcg (1000 Iu) Tablet) 50 mcg PO DAILY [facility] Last Admin: 09/24/21 09:07 Dose: 50 mcg Escitalopram Oxalate (Escitalopram 20 Mg Tab) 20 mg PO HS [facility] Last Admin: 09/23/21 20:44 Dose: 20 mg Formoterol Fumarate (Formoterol Fumarate 20 Mcg/2 Ml Nebu) 20 mcg INHALATION RT-BID [facility] Last Admin: 09/24/21 08:15 Dose: 20 mcg Furosemide (Furosemide 10 Mg/Ml 4 Ml Vial) 40 mg IV Q12HR [facility] Last Admin: 09/24/21 09:08 Dose: 40 mg Guaifenesin (Guaifenesin 600 Mg Tablet.Er) 1,200 mg PO Q12HR [facility] Last Admin: 09/24/21 09:07 Dose: 1,200 mg Guaifenesin/Codeine Phosphate (Guaifenesin-Coden 100-10mg/5ml 10 Ml Cup) 10 ml PO Q6HR PRN PRN Reason: Cough Last Admin: 09/23/21 12:27 Dose: 10 ml Metoprolol Succinate (Metoprolol Succinate (Er) 25 Mg Tab.Er.24h) 25 mg PO DAILY [facility] Last Admin: 09/24/21 09:07 Dose: 25 mg Miscellaneous Information (Potassium Replacement Protocol 1 Each Misc) 1 each MISCELLANE DAILY PRN; Protocol PRN Reason: Per Protocol Prednisone (Prednisone 20 Mg Tab) 40 mg PO DAILY [facility] Last Admin: 09/24/21 09:08 Dose: 40 mg Past medical history to include: Hypertension, sinus cavity cancer radiation treatment 1990 at least 19 surgeries last one being in 2 years ago. MRI in March 2020 was negative, depression Social history: Lives alone., Smoked a pack a day for 40 years stopped 20 years ago. No alcohol. Physical examination: VITAL SIGNS: 98.4, 56, 17, 116/78, 100% on 4 L GENERAL: , Up in a chair awake, breathing better EYES: Left eye is not present l. HEENT: External appearance of nose and ears normal, some facial asymmetry NECK: JVD not raised; masses not palpable. HEART: First and second heart sounds are normal; some edema present LUNGS: Rate increased, Diminished breath sounds ABDOMEN: Soft, nontender, liver spleen not palpable, no masses palpable. PSYCH: Answering questions appropriately NEUROLOGICAL: Cranial nerves grossly intact; no facial asymmetry, power and sensation grossly intact, left eye absent INVESTIGATIONS, reviewed in the clinical context: September 24: White count 8.3 potassium 3.7 BUN 40 bicarbonate 35 September 23: Obesity 6.9 hemoglobin 13.8 potassium 3.4 creatinine 1.0 September 22: White count 6.3 hemoglobin 13.8 potassium 3.2 BUN 30 creatinine 1.10. Pro-calcitonin 0.12 September 21: White count 7.4 hemoglobin 14 sodium 148 potassium 4.7 creatinine 1.04. BUN 57 white count 38 2-D echocardiogram: EF 60-65%. Moderate concentric LVH. Severe pulmonary hypertension. White count 8.3 hemoglobin 16.7 platelets 203 ABG: PH 7.17, pCO2 88, pO2 57 Potassium 5. 49 creatinine 1.16 Troponin I 0.050 proBNP 5350 Influenza type A, influenza type B, RSV, COVID-19: Not detected EKG tracing personally reviewed by me-normal sinus rhythm. Chest x-ray film personally reviewed by me-pulmonary edema versus infiltrates chest CTA: Large pulmonary arteries. No PE. Coarse infiltrates. Atelectasis. Some elevation of right diaphragm. Assessment and plan -Probable pneumonia suspected gram-negative organism. Ceftriaxone 1 g every 12-discontinued . Procalcitonin 0.12. -Acute hypoxic and hypercapnic respiratory failure secondary to pneumonia and fluid overload: Improving BiPAP at night. 4 L nasal cannula -Possibly sleep apnea syndrome and/or pickwickian syndrome. Using BiPAP at night -Acute COPD exacerbation and a previous smoker: Better IV Solu-Medrol 60 mg every 8-discontinued. Bronchodilators -Acute hypoxic hypercapnic encephalopathy: h improved Follow clinically - pulmonary edema . IV Lasix. 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 -Metabolic alkalosis from volume contraction Diamox -Essential hypertension Toprol-XL 25 mg a day -Acute lower GI bleed. None now Clear liquids. Pending endoscopy -Depression Lexapro -Full code IV Lasix. Continue Diamox. Solu-Medrol discontinued Bronchodilators. For endoscopy tomorrow. Encourage incentive spirometry
[2021-09-24] MEDS: ESCITALOPRAM 20 MG TAB PO SCH (20:24)
[2021-09-25] MEDS: BUDESONIDE 1 MG/2 ML NEBU INHALATION SCH ×2 (07:09→21:46)
[2021-09-25] MEDS: FORMOTEROL FUMARATE 20 MCG/2 ML NEBU INHALATION SCH ×2 (07:09→21:46)
[2021-09-25] MEDS: IPRATROPIUM-ALBUTEROL 3 ML NEB INHALATION SCH ×4 (07:09→21:46)
[2021-09-25] MEDS ORDERED: POTASSIUM CHLORIDE 10 MEQ in WATER FOR INJECTION 1 100ML.BAG IVPB STA (07:14)
--- NOTE | 2021-09-25 08:42 | P.PN ---
Subjective Progress Note Date: 09/25/21 76-year-old female patient was being seen in follow-up in the intensive care unit. The patient is obese with a BMI of 40.3. The patient has also history of obstructive sleep apnea/obesity hypoventilation syndrome and addition to chronic hypercapnic respiratory failure and hypoxic respiratory failure. The patient is having worsening shortness of breath secondary to decompensated CHF. The patient otherwise is stable. The patient is alternating between BiPAP at a pressure of 60/5 with an FiO2 of 50% and oxygen at 4 L per minute nasal cannula. The patient remains on Lasix 40 g IV every 24 hours. hours. Repeat chest x- ray from today showed cardiomegaly and ongoing continue with diffuse interst itial densities consistent with CHF. The patient is responding to diuretics. The patient was -2.5 L in fluid balance over the past 24 hours and currently the patient is still producing adequate amount of urine output. BUN is at 27 with a creatinine of 1 and sodium level is at 141. The white cell count is at 6.9 with a hemoglobin of 13.8. No other significant events overnight. IV fluids are c urrently at KVO. Patient is also on Diamox to counteract underlying metabolic alkalosis developing with diuresis. 09/24/2021, the patient is being seen for a follow-up. The patient still being subjected to diuretics and the patient is currently on a combination of Lasix and acetazolamide. The patient is receiving Lasix 40 mg to 12 hours and Diamox 250 mg twice a day. On today's evaluation, the fluid balance over the past 24 hours has been negative 1. liters. The blood work from today shows a white cell count of 8.3 with hemoglobin of 12.4, the creatinine is at 1.4 with a mean of 48 and a serum bicarbonate is 35 with a sodium level of 141. The patient is on oxygen and the patient's chest x-ray from today is showing cardiomegaly and addition to increased pulmonary vessel markings consistent with fluid overload. The findings are essentially the same as compared to yesterday. In terms of his her oxygenation, the patient is currently on O2 at 4 L with a pulse ox of 95%. She is using the BiPAP overnight at a pressure of 16/5 cm of water with an FiO2 of 50%. She is arousable. She is awake. She is communicating. No other significant events overnight. I kept the patient on a combination of bronchodilators and steroids as the patient was quite bronchospastic and wheezy on yesterday's evaluation. 09/25 2021, the patient remains in the intensive care unit. She is a selective overflow. She is comfortable. She is nothing by mouth. She underwent a bowel prep yesterday and today the patient is going to undergo an EGD and colonoscopy as part of a further workup for her ongoing episodes of GI bleeding. At the same time, the patient is being cheered for an acute hypoxic/hypercapnic respiratory failure. She remains on Lasix 40 mg every 12 hours and Diamox to 50 mg by mouth twice a day. She is feeling better. Pulse ox is up to 97% on 4 L of oxygen by nasal cannula and this can be easily weaned off. Otherwise, no signs of any significant fluid overload. Her bronchospasm and wheezing has improved compared to yesterday and she is less short of breath. She'll be kept on diuretics for now and I will suggest keeping in for another 24 hours. Labs from today was noted. BUN is a 48 with a creatinine of 1.1 and sodium level is at 141. The hemoglobin remains stable despite episodic GI bleeding and hemoglobin currently is at 12.4. No altered mentation. No overnight events. The patient is also going to undergo the colonoscopy and EGD and following that she can be transferred to a medical floor. Objective - Vital Signs Vital signs: Vital Signs Temp 97.5 F L 09/25/21 05:30 Pulse 58 L 09/25/21 07:35 Resp 18 09/25/21 07:35 BP 135/72 09/25/21 05:30 Pulse Ox 97 09/25/21 07:12 FiO2 40 09/23/21 21:03 Intake & Output 09/24/21 09/25/21 09/25/21 18:59 06:59 18:59 Intake Total 70 480 Output Total 150 3200 Balance -80 -2720 Weight 107.3 kg Intake: IV 70 Dextrose 5% in Water 1, 70 000 ml @ 20 mls/hr IV . Q24H [facility] Rx#:[id number] Oral 480 Output: Urine 150 200 Urine/Stool Mix 3000 Other: Voiding Method Indwelling Catheter Indwelling Catheter # Voids 6 # Bowel Movements 6 - Exam Oriented 3, no acute distress. No conversational dyspnea, or use of accessory muscles. The patient is currently on 4 L of nasal cannula Head exam was generally normal. There was no scleral icterus or corneal arcus. Mucous membranes were moist. HEENT examination is grossly unremarkable. Neck supple. Full range of motion. No adenopathy thyromegaly or neck vein distention. Cardiovascular examination reveals regular rhythm rate. S1-S2 normal. No S3 or S4. No discernible murmur noted. Heart sounds are distant. Lungs reveal diffuse rhonchi and crackles. Breath sounds equal. She is not taking deep breaths. No wheezes. The patient continues to have crackles at lung bases bilaterally Abdomen is obese, without bowel sounds. No tenderness. Extremities reveal lower extremity edema, 1+. No cyanosis or clubbing. Skin reveals chronic venous stasis changes to the lower extremities. Neurologic examination is brief but nonfocal. - Labs CBC & Chem 7: 09/24/21 05:44 09/24/21 05:44 Assessment and Plan Plan: Acute hypoxic respiratory failure, currently on oxygen at 4 L of oxygen by nasal cannula. The patient is also utilizing BiPAP overnight at a pressure of 16/5 cm of water. The patient oxidation is improved and the patient's pulse ox is 97% on 4 L of oxygen by nasal cannula. We'll continue the diuretics and repeat the blood gas tomorrow to reevaluate her acid base status. Acute on chronic hypoxic and hypercapnic respiratory failure, most recent blood gases showed improvement and acid base status Possible history of sleep apnea syndrome and/or Pickwickian syndrome. The patient is currently using BiPAP at a pressure of 16/5 cm of water and FiO2 of 50% overnight. COPD exacerbation , improving Severe pulmonary hypertension with a PA pressure of around at least 69 mmHg Right hemidiaphragmatic elevation, possible paralysis Previous history of insertion and removal tracheostomy tube and a PEG tube as part of her treatment of sinus cancer Shortness of breath, likely related to underlying CHF. History of hypertension. Chronic hypercapnic respiratory failure. Elevated troponin, rule out myocardial ischemia. History of sinus cavity cancer. The patient has a polymorphic adenocarcinoma an d the patient has undergone a major resection of the sinuses to her with maxillary sinus resection, left eye enucleation History of skin cancer. History of depression. Prior history of tobacco use. Polycythemia, likely secondary to chronic hypoxemic respiratory failure. Her GI bleed, the patient was having bright red blood per rectum, hemoglobin today stable at 12.4 and general surgery on the case. Plan: keep the patient nothing by mouth Bowel prep has been done Continue diuretics for another 24 hours and repeat blood gases in the morning Wean down the FiO2 currently on 4 L she should be able to wean down further prednisone burst taper She is less congested on today's examination especially in her lungs and the patient will be kept on diuretics for another day and diuretics will be tapered off as of tomorrow. Patient is assessed versus this is stable. Noted the patient's respiratory failure is multifactorial due to above-mentioned comorbidities. Continue diuresis and she is on Lasix to 40 units every 12 hours Continue Diamox Monitor electrolytes Wean down FiO2 Repeat chest x-ray for rylan We'll need a BiPAP machine in time of discharge We'll continue to follow
[2021-09-25 10:31] LABS: Calcium 7.8 mg/dL (8.4-10.2); Potassium 2.9 mmol/L (3.5-5.1)
[2021-09-25 10:47] LABS: HCT 36.4 % (34.0-46.0); HGB 10.7 gm/dL (11.4-16.0); Hypochromasia Marked; MCH 29.4 pg (25.0-35.0); MCHC 29.4 g/dL (31.0-37.0); MCV 100.2 fL (80.0-100.0); Macrocytosis Slight; Platelet Count 127 k/uL (150-450); RBC 3.64 m/uL (3.80-5.40); RDW 14.6 % (11.5-15.5); WBC 9.3 k/uL (3.8-10.6)
[2021-09-25] MEDS ORDERED: LIDOCAINE 2% INJ 20 MG/ML (2 ML VIAL) ONE (11:58)
[2021-09-25] MEDS ORDERED: PROPOFOL 10 MG/ML 20 ML VIAL IV ONE (11:58)
[2021-09-25] MEDS ORDERED: LACTATED RINGERS 1,000 ML IV ONE (12:03)
[2021-09-25] MEDS: AMIODARONE 200 MG TAB PO SCH ×3 (12:39→21:12)
[2021-09-25] MEDS: POTASSIUM CHLORIDE ER 20 MEQ TAB.ER PO SCH ×2 (13:04→14:10)
[2021-09-25] MEDS: guaiFENesin 600 MG TABLET.ER PO SCH ×2 (13:04→21:13)
[2021-09-25] MEDS: CHOLECALCIFEROL 25 MCG (1000 IU) TABLET PO SCH (13:04)
[2021-09-25] MEDS: predniSONE 20 MG TAB PO SCH (13:04)
[2021-09-25] MEDS: acetaZOLAMIDE 250 MG TAB PO SCH (13:04)
[2021-09-25] MEDS: FUROSEMIDE 10 MG/ML 4 ML VIAL IV SCH ×3 (13:05→21:10)
[2021-09-25] MEDS: METOPROLOL SUCCINATE (ER) 25 MG TAB.ER.24H PO SCH (14:11)
[2021-09-25] MEDS ORDERED: PANTOPRAZOLE 40 MG TABLET PO SCH (17:30)
--- NOTE | 2021-09-25 18:03 | P.PCN ---
Date of Procedure: 09/25/21 Procedure(s) Performed: PREOPERATIVE DIAGNOSIS: GI bleed POSTOPERATIVE DIAGNOSIS: Duodenal ulcer 2 with stigmata of recent bleeding, gastritis, fungal esophagitis, diverticulosis, poor prep PROCEDURE: 1. EGD with biopsy 2. Colonoscopy ANESTHESIA: MAC SURGEON: Mustapha Bermeo M.D. SPECIMENS: Antrum, esophagitis ENDOSCOPIC PROCEDURE: The patient was on the endoscopy table in the left decubitus position. The Olympus gastroscope was inserted into the oropharynx and passed under direct visualization to the region of the third portion of the duodenum. From that point the scope was slowly withdrawn inspecting all surfaces carefully. There was noted to be 2 separate ulcerations in the duodenum. The first ulcer was larger and present in the duodenal sweep. There was no visible vessel or adherent clot here. The second ulcer was smaller measuring only about 8 mm in size but did have a protuberant adherent clot present. There was no blood present within the duodenum or stomach. No intervention took place at this time at the ulcer site. The pylorus was widely patent. The stomach was inspected. There was mild gastritis. A biopsy of the antrum took place. Retroflexion revealed small to send her hiatal hernia. The patient's esophagus demonstrated whitish plaques throughout consistent with probable fungal esophagitis. Biopsies were taken. No inflammatory changes of the esophagus were present. The patient was kept on the endoscopy table in the left decubitus position. The Olympus colonoscope was inserted into the anus and passed under direct visualization to the region of the right colon. The patient had retained maroon-colored stool throughout. I could not visualize the mucosal well. The prep was poor. There was some diverticulosis seen in the left colon. At that point the procedure was essentially aborted given the poor prep and the scope was withdrawn. No large mass or active bleeding was seen. Digital rectal examination was normal. The patient was taken to the recovery room in stable condition per anesthesia guidelines. RECOMMENDATIONS: Findings discussed with pulmonary, GI, and the hospitalist service. Case also discussed at length with the patient's daughter. Patient high risk for rebleed given the endoscopic findings. Discussed reattempted EGD by GI to see if clip placement would be possible there. We do not have interventional radiology backup the could provide angioembolization however. Patient high risk for general anesthesia and senior living ventilation issues. Recommend after discussing with GI transfer to tertiary care center where advanced GI and angioembolization by interventional radiology available. Arrangements being made. Continue antiacids. Hold anticoagulation. May have clear liquids.
[2021-09-25] MEDS: ESCITALOPRAM 20 MG TAB PO SCH (21:10)
[2021-09-25] MEDS: PANTOPRAZOLE 40 MG/10 ML VIAL IVP SCH (21:12)
[2021-09-26] MEDS: IPRATROPIUM-ALBUTEROL 3 ML NEB INHALATION SCH ×4 (07:27→19:58)
[2021-09-26] MEDS: FORMOTEROL FUMARATE 20 MCG/2 ML NEBU INHALATION SCH ×2 (07:27→19:58)
[2021-09-26] MEDS: BUDESONIDE 1 MG/2 ML NEBU INHALATION SCH ×2 (07:27→19:58)
--- NOTE | 2021-09-26 08:09 | XR ---
EXAMINATION TYPE: XR chest 1V portable DATE OF EXAM: 09/26/2021 COMPARISON: 09/24/2021 INDICATION: Shortness of breath TECHNIQUE: Single frontal view of the chest is obtained. FINDINGS: The heart size is only prominent. The pulmonary vasculature is normal. No suspicious consolidations. No pleural effusion is evident. There is chronic elevation of the right diaphragm. IMPRESSION: 1. Mild cardiomegaly
[2021-09-26] MEDS: acetaZOLAMIDE 250 MG TAB PO SCH ×2 (08:23→08:24)
[2021-09-26] MEDS: AMIODARONE 200 MG TAB PO SCH ×3 (08:25→19:56)
[2021-09-26] MEDS: CHOLECALCIFEROL 25 MCG (1000 IU) TABLET PO SCH (08:26)
[2021-09-26] MEDS: METOPROLOL SUCCINATE (ER) 25 MG TAB.ER.24H PO SCH (08:26)
[2021-09-26] MEDS: guaiFENesin 600 MG TABLET.ER PO SCH ×2 (08:26→19:56)
[2021-09-26] MEDS: predniSONE 20 MG TAB PO SCH (08:27)
[2021-09-26] MEDS: PANTOPRAZOLE 40 MG/10 ML VIAL IVP SCH ×2 (08:27→19:57)
--- NOTE | 2021-09-26 08:50 | P.PN ---
Subjective Progress Note Date: 09/26/21 76-year-old female patient was being seen in follow-up in the intensive care unit. The patient is obese with a BMI of 40.3. The patient has also history of obstructive sleep apnea/obesity hypoventilation syndrome and addition to chronic hypercapnic respiratory failure and hypoxic respiratory failure. The patient is having worsening shortness of breath secondary to decompensated CHF. The patient otherwise is stable. The patient is alternating between BiPAP at a pressure of 60/5 with an FiO2 of 50% and oxygen at 4 L per minute nasal cannula. The patient remains on Lasix 40 g IV every 24 hours. hours. Repeat chest x- ray from today showed cardiomegaly and ongoing continue with diffuse interst itial densities consistent with CHF. The patient is responding to diuretics. The patient was -2.5 L in fluid balance over the past 24 hours and currently the patient is still producing adequate amount of urine output. BUN is at 27 with a creatinine of 1 and sodium level is at 141. The white cell count is at 6.9 with a hemoglobin of 13.8. No other significant events overnight. IV fluids are c urrently at KVO. Patient is also on Diamox to counteract underlying metabolic alkalosis developing with diuresis. 09/24/2021, the patient is being seen for a follow-up. The patient still being subjected to diuretics and the patient is currently on a combination of Lasix and acetazolamide. The patient is receiving Lasix 40 mg to 12 hours and Diamox 250 mg twice a day. On today's evaluation, the fluid balance over the past 24 hours has been negative 1. liters. The blood work from today shows a white cell count of 8.3 with hemoglobin of 12.4, the creatinine is at 1.4 with a mean of 48 and a serum bicarbonate is 35 with a sodium level of 141. The patient is on oxygen and the patient's chest x-ray from today is showing cardiomegaly and addition to increased pulmonary vessel markings consistent with fluid overload. The findings are essentially the same as compared to yesterday. In terms of his her oxygenation, the patient is currently on O2 at 4 L with a pulse ox of 95%. She is using the BiPAP overnight at a pressure of 16/5 cm of water with an FiO2 of 50%. She is arousable. She is awake. She is communicating. No other significant events overnight. I kept the patient on a combination of bronchodilators and steroids as the patient was quite bronchospastic and wheezy on yesterday's evaluation. 09/25 2021, the patient remains in the intensive care unit. She is a selective overflow. She is comfortable. She is nothing by mouth. She underwent a bowel prep yesterday and today the patient is going to undergo an EGD and colonoscopy as part of a further workup for her ongoing episodes of GI bleeding. At the same time, the patient is being cheered for an acute hypoxic/hypercapnic respiratory failure. She remains on Lasix 40 mg every 12 hours and Diamox to 50 mg by mouth twice a day. She is feeling better. Pulse ox is up to 97% on 4 L of oxygen by nasal cannula and this can be easily weaned off. Otherwise, no signs of any significant fluid overload. Her bronchospasm and wheezing has improved compared to yesterday and she is less short of breath. She'll be kept on diuretics for now and I will suggest keeping in for another 24 hours. Labs from today was noted. BUN is a 48 with a creatinine of 1.1 and sodium level is at 141. The hemoglobin remains stable despite episodic GI bleeding and hemoglobin currently is at 12.4. No altered mentation. No overnight events. The patient is also going to undergo the colonoscopy and EGD and following that she can be transferred to a medical floor. 09/26/2021, the patient is being seen for a follow-up. Since yesterday, the patient underwent a EGD and a colonoscopy. I had a discussion with the surgeon and the patient has a fairly large duodenal ulcer 2 with stigmata of recent bleeding along with gastritis and esophagitis and diverticulosis. Of significance is a visible vessel in the base of the ulcer and this is considered to be a high-risk for bleeding again. In any rate, the patient has not shown any signs of bleeding overnight. She is resting comfortably in bed. She is on clear liquid diet for now. Hemoglobin currently is at 10.7. Based on my discussion with the general surgeon and gastroenterology, and based on the review of the endoscopic findings, this is considered to be a high risk of rebleeding and the patient is being considered to be transferred to [facility] for further intervention possibly angina ablation of this fairly large duodenal ulcer. She is hemodynamically stable for now. She remains on diuretics and she is on Lasix 40 mg IV every 12 hours and she is also receiving Diamox. The blood work from today shows a white cell count of 9.3. Sodium is at 141 with a BUN of 62 and a creatinine of 1.3. Serum bicarbs at 35. Overall fluid balance is in the order of -1.6 L and -2.8 L for today. Oxygenation has improved and the patient is currently on 4 L of oxygen by nasal cannula with a pulse ox of 97%. The chest x-ray from today is showing improvement in the volume status. The right hemidiaphragm is still elevated. There is improved aeration in the upper lobes bilaterally. Lung volumes are essentially small for now. She is resting comfortably in bed. She has no specific complaints. Objective - Vital Signs Vital signs: Vital Signs Temp 98.1 F 09/26/21 02:00 Pulse 60 09/26/21 07:54 Resp 19 09/26/21 02:00 BP 109/59 09/26/21 02:00 Pulse Ox 97 09/26/21 07:32 FiO2 40 09/23/21 21:03 Intake & Output 09/25/21 09/26/21 09/26/21 18:59 06:59 18:59 Intake Total 600 600 Output Total 500 1000 Balance 100 -400 Weight 107.3 kg 107 kg Intake: IV 200 Oral 400 600 Output: Urine 500 1000 Other: Voiding Method Indwelling Catheter Bedside Commode # Voids 4 # Bowel Movements 2 - Exam Oriented 3, no acute distress. No conversational dyspnea, or use of accessory muscles. The patient is currently on 4 L of nasal cannula Head exam was generally normal. There was no scleral icterus or corneal arcus. Mucous membranes were moist. HEENT examination is grossly unremarkable. Neck supple. Full range of motion. No adenopathy thyromegaly or neck vein d istention. Cardiovascular examination reveals regular rhythm rate. S1-S2 normal. No S3 or S4. No discernible murmur noted. Heart sounds are distant. Lungs reveal diffuse rhonchi and crackles. Breath sounds equal. She is not taking deep breaths. No wheezes. The patient continues to have crackles at lung bases bilaterally Abdomen is obese, without bowel sounds. No tenderness. Extremities reveal lower extremity edema, 1+. No cyanosis or clubbing. Skin reveals chronic venous stasis changes to the lower extremities. Neurologic examination is brief but nonfocal. - Labs CBC & Chem 7: 09/25/21 09:17 09/25/21 09:17 Labs: Abnormal Lab Results - Last 24 Hours (Table) 09/25/21 09/25/21 Range/Units 09:17 09:17 RBC 3.64 L (3.80-5.40) m/uL Hgb 10.7 L (11.4-16.0) gm/dL MCV 100.2 H (80.0-100.0) fL MCHC 29.4 L (31.0-37.0) g/dL Plt Count 127 L (150-450) k/uL Potassium 2.9 L (3.5-5.1) mmol/L Carbon Dioxide 35 H (22-30) mmol/L BUN 62 H (7-17) mg/dL Creatinine 1.30 H (0.52-1.04) mg/dL Glucose 106 H (74-99) mg/dL Calcium 7.8 L (8.4-10.2) mg/dL Assessment and Plan Plan: Acute hypoxic respiratory failure, currently on oxygen at 4 L of oxygen by nasal cannula. The patient is also utilizing BiPAP overnight at a pressure of 16/5 cm of water. The patient oxidation is improved and the patient's pulse ox is 97% on 4 L of oxygen by nasal cannula. I am awaiting a blood gases from today to evaluate her acid base status. Nevertheless, the chest x-ray findings are improved and the patient has improvement in the volume status with significant diuresis. I would consider stopping the IV Lasix for now. Acute on chronic hypoxic and hypercapnic respiratory failure, most recent blood gases showed improvement and acid base status Possible history of sleep apnea syndrome and/or Pickwickian syndrome. The patient is currently using BiPAP at a pressure of 16/5 cm of water and FiO2 of 50% overnight. COPD exacerbation , improving Severe pulmonary hypertension with a PA pressure of around at least 69 mmHg Right hemidiaphragmatic elevation, possible paralysis Duodenal ulcer 2 with stigmata of recent bleed and the visible vessel within the ulcer with high risk of rebleeding. The patient is being considered for transfer to [facility]. The patient had recent GI bleed and she had blood blood per rectum. Most recent hemoglobin is at 10.7. Previous history of insertion and removal tracheostomy tube and a PEG tube as part of her treatment of sinus cancer Shortness of breath, likely related to underlying CHF. History of hypertension. Chronic hypercapnic respiratory failure. Elevated troponin, rule out myocardial ischemia. 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 History of depression. Prior history of tobacco use. Polycythemia, likely secondary to chronic hypoxemic respiratory failure. Her GI bleed, the patient was having bright red blood per rectum, hemoglobin today stable at 12.4 and general surgery on the case. Plan: Discontinue diuretics Changes the patient on Lasix 40 mg by mouth daily Obtain a blood gas to evaluate acid-base status Wean down the FiO2 currently on 4 L she should be able to wean down further prednisone burst taper IV Protonix Chest x-rays improving. We'll continue to follow
[2021-09-26] MEDS: FUROSEMIDE 40 MG TAB PO SCH (08:57)
[2021-09-26] MEDS ORDERED: FUROSEMIDE 10 MG/ML 4 ML VIAL IV SCH (09:00)
[2021-09-26 09:45] LABS: ABG Base Excess 5.7 mmol/L; ABG HCO3 30 mmol/L (21-25); ABG PCO2 49 mmHg (35-45); ABG PH 7.41 (7.35-7.45); ABG PO2 64 mmHg (83-108); ABG TCO2 32 mmol/L (19-24); Allen Test Performed? Yes
[2021-09-26 10:11] LABS: Calcium 7.4 mg/dL (8.4-10.2); Potassium 3.2 mmol/L (3.5-5.1)
[2021-09-26 10:12] LABS: HCT 29.3 % (34.0-46.0); Hypochromasia Marked; MCH 28.7 pg (25.0-35.0); MCHC 28.4 g/dL (31.0-37.0); Macrocytosis Slight; Mean Platelet Volume 9.9; Platelet Count 134 k/uL (150-450); RDW 14.7 % (11.5-15.5); WBC 12.6 k/uL (3.8-10.6)
[2021-09-26 10:17] LABS: HGB 8.3 gm/dL (11.4-16.0)
--- NOTE | 2021-09-26 11:11 | P.PN ---
Subjective Progress Note Date: 09/26/21 CHIEF COMPLAINT: CHF exacerbation HISTORY OF PRESENT ILLNESS: Surgical service following in regards to GI bleeding. Patient remains in the ICU. Patient had 3 maroon stools yesterday evening. Patient had EGD and colonoscopy. Results showed duodenal ulcer 2 with stigmata of recent bleeding, gastritis, fungal esophagitis and diverticulosis. Patient had poor bowel prep. Patient is high risk for bleeding again. vocational case manager is working on transferring patient to [facility]. This way patient can be evaluated by advanced GI service and interventional radiology for possible angioembolization. Patient currently on a clear liquid diet. Patient's upper abdominal pain is less than yesterday. She denies any nausea or vomiting. Afebrile. Patient did have some mild tachycardia earlier this morning. WBC is 12.6 hemoglobin dropped from 10.7-8.3. Sodium is 137 potassium is 3.2 creatinine 1.36 PHYSICAL EXAM: VITAL SIGNS: Reviewed. stable GENERAL: Well-developed in no acute distress. HEENT: No sclera icterus. Extraocular movements grossly intact. Moist buccal mucosa. Head is atraumatic, normocephalic. ABDOMEN: Soft. Nondistended. NEUROLOGIC: Sleeping comfortably ASSESSMENT: 1. Acute GI bleed with bloody stools status post EGD and colonoscopy with results showing duodenal ulcer 2 with stigmata of recent bleeding, gastritis, fungal esophagitis and diverticulosis 2. CHF exacerbation 3. Hypokalemia PLAN: -Recommend transfer to tertiary care center -Continue PPI -Continue to monitor hemoglobin -Continue to monitor for signs and symptoms of bleeding -Continue ICU management -Continue supportive care -Potassium being replaced Physician Pediatric Dental Assistant note has been reviewed by physician. Signing provider agrees with the documented findings, assessment, and plan of care. I have personally seen and examined the patient, reviewed the [employer] /PAs history, exam and MDM and agree with the assessment and plan as written. Based on total visit time, I have performed more than 50% of the visit. As above: Patient with duodenal ulcer demonstrating stigmata of recent bleeding and high risk for rebleed. Head maroon colored stools last night. No abdominal pain or bloody stools today. Hemoglobin did drop overnight. Await transfer to tertiary care center for repeat EGD and possible angioembolization. Continue antiacids. Objective - Vital Signs Vital signs: Vital Signs Temp 98.1 F 09/26/21 02:00 Pulse 60 09/26/21 07:54 Resp 19 09/26/21 02:00 BP 109/59 09/26/21 02:00 Pulse Ox 97 09/26/21 07:32 FiO2 40 09/23/21 21:03 Intake & Output 09/25/21 09/26/21 09/26/21 18:59 06:59 18:59 Intake Total 600 600 Output Total 500 1000 Balance 100 -400 Weight 107.3 kg 107 kg Intake: IV 200 Oral 400 600 Output: Urine 500 1000 Other: Voiding Method Indwelling Catheter Bedside Commode # Voids 4 # Bowel Movements 2 - Labs CBC & Chem 7: 09/26/21 09:30 09/26/21 09:30 Labs: Abnormal Lab Results - Last 24 Hours (Table) 09/26/21 09/26/21 09/26/21 Range/Units 09:30 09:30 09:43 WBC 12.6 H (3.8-10.6) k/uL RBC 2.90 L (3.80-5.40) m/uL Hgb 8.3 L D (11.4-16.0) gm/dL Hct 29.3 L (34.0-46.0) % MCV 101.0 H (80.0-100.0) fL MCHC 28.4 L (31.0-37.0) g/dL Plt Count 134 L (150-450) k/uL ABG pCO2 49 H (35-45) mmHg ABG pO2 64 L (83-108) mmHg ABG HCO3 30 H (21-25) mmol/L ABG Total CO2 32 H (19-24) mmol/L ABG O2 Saturation 93.0 L (94-97) % Potassium 3.2 L (3.5-5.1) mmol/L Carbon Dioxide 32 H (22-30) mmol/L BUN 60 H (7-17) mg/dL Creatinine 1.36 H (0.52-1.04) mg/dL Glucose 146 H (74-99) mg/dL Calcium 7.4 L (8.4-10.2) mg/dL
[2021-09-26] MEDS: POTASSIUM CHLORIDE ER 20 MEQ TAB.ER PO SCH ×2 (13:06→15:23)
[2021-09-26] MEDS ORDERED: FLUCONAZOLE 100 MG TAB PO ONE (13:14)
--- NOTE | 2021-09-26 13:16 | P.PN ---
Progress Note - Text Progress Note Date: 09/25/21 Chief Complaint: Short of breath History of presenting complaint: This is a pleasant [address] Len Tran. 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 Has had about 19 surgeries last one being about 3 years ago. 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 Patient had a MRI in March 2020 that did not show any recurrence. Patient had some shortness of breath on and off for about a month. More so in the last 2 days. Congested cough. No obvious fever and chills. Tired. Patient dozes off very easily. Requiring BiPAP in the ER. Patient's daughter the bedside to give most of the history. Patient rather tired and lethargic. Admitted with pneumonia, acute hypoxic respiratory failure, questionable CHF. BiPAP. IV ceftriaxone. IV Lasix. Bronchodilators. Admitted to ICU September 21: ICU: Patient getting bronchodilators. On 10 L of nasal cannula. IV Lasix 40 mg daily. [place] to be predominant pneumonia. Able to converse. Rober httheo at the bedside. Patient answering questions. Tired. September 22: ICU: On 6 L nasal cannula. On a liquid diet. Placed on IV Lasix by pulmonary. Ceftriaxone discontinued by pulmonary. Patient's sister the bedside. Discussed. September 23: ICU: This morning on 6 L nasal cannula. Unclear liquid diet because of large bloody bowel movement on the night of September 20. Being followed by surgery. Breathing better. On IV Lasix. Off antibiotics. Daughter the bedside. September 24: ICU: Sitting up in a chair. Down to 4 L nasal cannula. He wanted to use incentive spirometry. Unclear liquid diet. For endoscopy tomorrow. Daughter the bedside. September 25: ICU: Patient underwent EGD and colonoscopy by Dr. Shearer. The previous night patient had some fresh blood with bowel preparation. He discovered a duodenal ulcer with a large blood clot. Some evidence of gastritis and fungal esophagitis. Chronic diverticulosis. Fresh blood in the colon. It was felt the patient be better served at the tertiary center. In case patient uses embolization. He discussed this with the patient and family. I spoke to the accepting team in ICU at [address] [place] [address]. Patient was accepted. Patient is placed on PPI Current medications reviewed Past medical history to include: Hypertension, sinus cavity cancer radiation treatment 1989 at least 19 surgeries last one being in 2 years ago. MRI in March 2020 was negative, depression Social history: Lives alone., Smoked a pack a day for 40 years stopped 20 years ago. No alcohol. Physical examination: VITAL SIGNS: 98.2, 60, 20, 10 7 x 89, 96% on 3 L GENERAL: , Up in a chair awake, breathing better EYES: Left eye is not present l. HEENT: External appearance of nose and ears normal, some facial asymmetry NECK: JVD not raised; masses not palpable. HEART: First and second heart sounds are normal; some edema present LUNGS: Rate increased, Diminished breath sounds ABDOMEN: Soft, nontender, liver spleen not palpable, no masses palpable. PSYCH: Answering questions appropriately NEUROLOGICAL: Cranial nerves grossly intact; no facial asymmetry, power and sensation grossly intact, left eye absent INVESTIGATIONS, reviewed in the clinical context: September 25: Hemoglobin 8.3 potassium 3.2 creatinine 1.36 September 24: White count 8.3 potassium 3.7 BUN 40 bicarbonate 35 September 23: Obesity 6.9 hemoglobin 13.8 potassium 3.4 creatinine 1.0 September 22: White count 6.3 hemoglobin 13.8 potassium 3.2 BUN 30 creatinine 1.10. Pro-calcitonin 0.12 September 21: White count 7.4 hemoglobin 14 sodium 148 potassium 4.7 creatinine 1.04. BUN 57 white count 38 2-D echocardiogram: EF 60-65%. Moderate concentric LVH. Severe pulmonary hypertension. White count 8.3 hemoglobin 16.7 platelets 203 ABG: PH 7.17, pCO2 88, pO2 57 Potassium 5. 49 creatinine 1.16 Troponin I 0.050 proBNP 5350 Influenza type A, influenza type B, RSV, COVID-19: Not detected EKG tracing personally reviewed by me-normal sinus rhythm. Chest x-ray film personally reviewed by me-pulmonary edema versus infiltrates chest CTA: Large pulmonary arteries. No PE. Coarse infiltrates. Atelectasis. Some elevation of right diaphragm. Assessment and plan -Probable pneumonia suspected gram-negative organism. Ceftriaxone 1 g every 12-discontinued . Procalcitonin 0.12. -Acute hypoxic and hypercapnic respiratory failure secondary to pneumonia and fluid overload: Improving BiPAP at night. 3 L nasal cannula -Possibly sleep apnea syndrome and/or pickwickian syndrome. Using BiPAP at night -Acute COPD exacerbation and a previous smoker: Better IV Solu-Medrol 60 mg every 8-discontinued. Bronchodilators -Acute hypoxic hypercapnic encephalopathy: improved Follow clinically - pulmonary edema . IV Lasix. 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 Down to 10.7 -Severe pulmonary hypertension Possible VQ scan when patient more stable. -Metabolic alkalosis from volume contraction Diamox -Essential hypertension Toprol-XL 25 mg a day -Duodenal ulcer with stigmata of acute bleeding including a blood clot, but gastritis PPI Protonix 40 mg twice a day -Fungal esophagitis Add Diflucan -Depression Lexapro -Full code IV Lasix. Continue Diamox. Prednisone Bronchodilators. Patient accepted at [facility] ICU. Add Diflucan. Follow H&H. Total time spent about 45 minutes with over 25 minutes of discussion.
--- NOTE | 2021-09-26 17:21 | P.PN ---
Progress Note - Text Progress Note Date: 09/26/21 Chief Complaint: Short of breath History of presenting complaint: This is a pleasant [address] Len Tran. 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 Has had about 19 surgeries last one being about 3 years ago. 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 Patient had a MRI in March 2020 that did not show any recurrence. Patient had some shortness of breath on and off for about a month. More so in the last 2 days. Congested cough. No obvious fever and chills. Tired. Patient dozes off very easily. Requiring BiPAP in the ER. Patient's daughter the bedside to give most of the history. Patient rather tired and lethargic. Admitted with pneumonia, acute hypoxic respiratory failure, questionable CHF. BiPAP. IV ceftriaxone. IV Lasix. Bronchodilators. Admitted to ICU September 21: ICU: Patient getting bronchodilators. On 10 L of nasal cannula. IV Lasix 40 mg daily. [place] to be predominant pneumonia. Able to converse. Rober httheo at the bedside. Patient answering questions. Tired. September 22: ICU: On 6 L nasal cannula. On a liquid diet. Placed on IV Lasix by pulmonary. Ceftriaxone discontinued by pulmonary. Patient's sister the bedside. Discussed. September 23: ICU: This morning on 6 L nasal cannula. Unclear liquid diet because of large bloody bowel movement on the night of September 20. Being followed by surgery. Breathing better. On IV Lasix. Off antibiotics. Daughter the bedside. September 24: ICU: Sitting up in a chair. Down to 4 L nasal cannula. He wanted to use incentive spirometry. Unclear liquid diet. For endoscopy tomorrow. Daughter the bedside. September 25: ICU: Patient underwent EGD and colonoscopy by Dr. Shearer. The previous night patient had some fresh blood with bowel preparation. He discovered a duodenal ulcer with a large blood clot. Some evidence of gastritis and fungal esophagitis. Chronic diverticulosis. Fresh blood in the colon. It was felt the patient be better served at the tertiary center. In case patient uses embolization. He discussed this with the patient and family. I spoke to the accepting team in ICU at [address] [place] [address]. Patient was accepted. Patient is placed on PPI September 26: ICU: Patient awaiting transfer to [facility]. On Diflucan for fungal candidiasis. Hemoglobin 8.3 this morning. Blood pressure holding up. Remains on clear liquid diet. Active Medications Acetaminophen (Acetaminophen Tab 500 Mg Tab) 500 mg PO Q6HR PRN PRN Reason: Fever and/ or Pain Last Admin: 09/24/21 13:04 Dose: 500 mg Albuterol/Ipratropium (Ipratropium-Albuterol 3 Ml Neb) 3 ml INHALATION RT-QID BAHMAN Last Admin: 09/26/21 15:09 Dose: 3 ml Albuterol/Ipratropium (Ipratropium-Albuterol 3 Ml Neb) 3 ml INHALATION RT-Q2H PRN PRN Reason: Shortness Of Breath Or Wheezing Amiodarone HCl (Amiodarone 200 Mg Tab) 200 mg PO TID BAHMAN Last Admin: 09/26/21 15:22 Dose: 200 mg Benzocaine/Menthol (Benzocaine/Menthol Lozeng 1 Each Lozenge) 1 each MUCOUS MEM Q4HR PRN PRN Reason: Cough Last Admin: 09/22/21 23:30 Dose: 1 each Budesonide (Budesonide 1 Mg/2 Ml Nebu) 1 mg INHALATION RT-BID BAHMAN Last Admin: 09/26/21 07:27 Dose: 1 mg Cholecalciferol (Cholecalciferol 25 Mcg (1000 Iu) Tablet) 50 mcg PO DAILY FOR[facility]LY [facility], [facility] Last Admin: 09/26/21 08:26 Dose: 50 mcg Escitalopram Oxalate (Escitalopram 20 Mg Tab) 20 mg PO HS [facility], [facility] Last Admin: 09/25/21 21:10 Dose: 20 mg Fluconazole (Fluconazole 100 Mg Tab) 100 mg PO DAILY FORMERLY [facility], [facility]; Protocol Formoterol Fumarate (Formoterol Fumarate 20 Mcg/2 Ml Nebu) 20 mcg INHALATION RT-BID BAHMAN Last Admin: 09/26/21 07:27 Dose: 20 mcg Furosemide (Furosemide 40 Mg Tab) 40 mg PO DAILY FOR[facility] Last Admin: 09/26/21 08:57 Dose: 40 mg Guaifenesin (Guaifenesin 600 Mg Tablet.Er) 1,200 mg PO Q12HR BAHMAN Last Admin: 09/26/21 08:26 Dose: 1,200 mg Guaifenesin/Codeine Phosphate (Guaifenesin-Coden 100-10mg/5ml 10 Ml Cup) 10 ml PO Q6HR PRN PRN Reason: Cough Last Admin: 09/23/21 12:27 Dose: 10 ml Metoprolol Succinate (Metoprolol Succinate (Er) 25 Mg Tab.Er.24h) 25 mg PO DAILY FOR[facility], [facility] Last Admin: 09/26/21 08:26 Dose: 25 mg Miscellaneous Information (Potassium Replacement Protocol 1 Each Misc) 1 each MISCELLANE DAILY PRN; Protocol PRN Reason: Per Protocol Pantoprazole Sodium (Pantoprazole 40 Mg/10 Ml Vial) 40 mg IVP BID [facility] Last Admin: 09/26/21 08:27 Dose: 40 mg Prednisone (Prednisone 20 Mg Tab) 40 mg PO DAILY [facility] Last Admin: 09/26/21 08:27 Dose: 40 mg Past medical history to include: Hypertension, sinus cavity cancer radiation treatment 1990 at least 19 surgeries last one being in 2 years ago. MRI in March 2020 was negative, depression Social history: Lives alone., Smoked a pack a day for 40 years stopped 20 years ago. No alcohol. Physical examination: VITAL SIGNS: 98.5, 70, 22, 115/52, 89% on 4 L GENERAL: , Up in a chair awake, some shortness of breath EYES: Left eye absent HEENT: External appearance of nose and ears normal, some facial asymmetry NECK: JVD not raised; masses not palpable. HEART: First and second heart sounds are normal; some edema present LUNGS: Rate increased, Diminished breath sounds ABDOMEN: Soft, nontender, liver spleen not palpable, no masses palpable. PSYCH: Answering questions appropriately NEUROLOGICAL: Cranial nerves grossly intact; no facial asymmetry, power and sensation grossly intact, left eye absent INVESTIGATIONS, reviewed in the clinical context: September 26: Hemoglobin 8.3 platelets 134 potassium 3.2 BUN 60 creatinine 1.36 September 25: Hemoglobin 8.3 potassium 3.2 creatinine 1.36 September 24: White count 8.3 potassium 3.7 BUN 40 bicarbonate 35 September 23: Obesity 6.9 hemoglobin 13.8 potassium 3.4 creatinine 1.0 September 22: White count 6.3 hemoglobin 13.8 potassium 3.2 BUN 30 creatinine 1.10. Pro-calcitonin 0.12 September 21: White count 7.4 hemoglobin 14 sodium 148 potassium 4.7 creatinine 1.04. BUN 57 white count 38 2-D echocardiogram: EF 60-65%. Moderate concentric LVH. Severe pulmonary hypertension. White count 8.3 hemoglobin 16.7 platelets 203 ABG: PH 7.17, pCO2 88, pO2 57 Potassium 5. 49 creatinine 1.16 Troponin I 0.050 proBNP 5350 Influenza type A, influenza type B, RSV, COVID-19: Not detected EKG tracing personally reviewed by me-normal sinus rhythm. Chest x-ray film personally reviewed by me-pulmonary edema versus infiltrates chest CTA: Large pulmonary arteries. No PE. Coarse infiltrates. Atelectasis. Some elevation of right diaphragm. Assessment and plan -Probable pneumonia suspected gram-negative organism. : Improved Ceftriaxone 1 g every 12-discontinued . Procalcitonin 0.12. -Acute hypoxic and hypercapnic respiratory failure secondary to pneumonia and fluid overload: Improving BiPAP at night. 4 L nasal cannula -Possibly sleep apnea syndrome and/or pickwickian syndrome. Using BiPAP at night -Acute COPD exacerbation and a previous smoker: Better IV Solu-Medrol 60 mg every 8-discontinued. Bronchodilators -Acute hypoxic hypercapnic encephalopathy: improved Follow clinically - pulmonary edema . IV Lasix now by mouth. 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 Down to 8.3 -Severe pulmonary hypertension Possible VQ scan when patient more stable. -Metabolic alkalosis from volume contraction Diamox -Essential hypertension Toprol-XL 25 mg a day -Duodenal ulcer with stigmata of acute bleeding including a blood clot, with gastritis PPI Protonix 40 mg twice a day -Fungal esophagitis Diflucan -Depression Lexapro -Full code By mouth Lasix. Prednisone Bronchodilators. Depending bed at [facility] ICU. Diflucan. Follow H&H.
[2021-09-26] MEDS: ESCITALOPRAM 20 MG TAB PO SCH (19:57)
[2021-09-27] MEDS: BUDESONIDE 1 MG/2 ML NEBU INHALATION SCH ×2 (07:24→20:17)
[2021-09-27] MEDS: IPRATROPIUM-ALBUTEROL 3 ML NEB INHALATION SCH ×4 (07:24→20:17)
[2021-09-27] MEDS: FORMOTEROL FUMARATE 20 MCG/2 ML NEBU INHALATION SCH ×2 (07:24→20:17)
[2021-09-27 08:16] LABS: Basophils % (A) 0 %; Eosinophils # (A) 0.1 k/uL (0-0.7); Eosinophils % (A) 1 %; HCT 25.3 % (34.0-46.0); HGB 7.2 gm/dL (11.4-16.0); Hypochromasia Marked; Lymphocytes # (A) 1.1 k/uL (1.0-4.8); Lymphocytes % (A) 13 %; MCH 28.9 pg (25.0-35.0); MCHC 28.5 g/dL (31.0-37.0); MCV 101.7 fL (80.0-100.0); Macrocytosis Slight; Mean Platelet Volume 10.2; Monocytes # (A) 0.4 k/uL (0-1.0); Monocytes % (A) 5 %; Neutrophils # (A) 7.2 k/uL (1.3-7.7); Neutrophils % (A) 81 %; Platelet Count 151 k/uL (150-450); RBC 2.49 m/uL (3.80-5.40); WBC 8.9 k/uL (3.8-10.6)
[2021-09-27 08:27] LABS: Calcium 7.6 mg/dL (8.4-10.2)
[2021-09-27 08:53] LABS: Potassium 3.6 mmol/L (3.5-5.1)
[2021-09-27] MEDS: PANTOPRAZOLE 40 MG/10 ML VIAL IVP SCH ×2 (09:11→21:47)
[2021-09-27] MEDS: CHOLECALCIFEROL 25 MCG (1000 IU) TABLET PO SCH (09:11)
[2021-09-27] MEDS: predniSONE 10 MG TAB PO SCH (09:11)
[2021-09-27] MEDS: guaiFENesin 600 MG TABLET.ER PO SCH ×2 (09:12→21:47)
[2021-09-27] MEDS: FUROSEMIDE 40 MG TAB PO SCH (09:12)
[2021-09-27] MEDS: AMIODARONE 200 MG TAB PO SCH ×3 (09:13→23:57)
[2021-09-27] MEDS: FLUCONAZOLE 100 MG TAB PO SCH (09:14)
[2021-09-27] MEDS: METOPROLOL SUCCINATE (ER) 25 MG TAB.ER.24H PO SCH (09:22)
--- NOTE | 2021-09-27 09:33 | P.PN ---
Subjective Progress Note Date: 09/27/21 76-year-old female patient was being seen in follow-up in the intensive care unit. The patient is obese with a BMI of 40.3. The patient has also history of obstructive sleep apnea/obesity hypoventilation syndrome and addition to chronic hypercapnic respiratory failure and hypoxic respiratory failure. The patient is having worsening shortness of breath secondary to decompensated CHF. The patient otherwise is stable. The patient is alternating between BiPAP at a pressure of 60/5 with an FiO2 of 50% and oxygen at 4 L per minute nasal cannula. The patient remains on Lasix 40 g IV every 24 hours. hours. Repeat chest x- ray from today showed cardiomegaly and ongoing continue with diffuse interst itial densities consistent with CHF. The patient is responding to diuretics. The patient was -2.5 L in fluid balance over the past 24 hours and currently the patient is still producing adequate amount of urine output. BUN is at 27 with a creatinine of 1 and sodium level is at 141. The white cell count is at 6.9 with a hemoglobin of 13.8. No other significant events overnight. IV fluids are c urrently at KVO. Patient is also on Diamox to counteract underlying metabolic alkalosis developing with diuresis. 09/24/2021, the patient is being seen for a follow-up. The patient still being subjected to diuretics and the patient is currently on a combination of Lasix and acetazolamide. The patient is receiving Lasix 40 mg to 12 hours and Diamox 250 mg twice a day. On today's evaluation, the fluid balance over the past 24 hours has been negative 1. liters. The blood work from today shows a white cell count of 8.3 with hemoglobin of 12.4, the creatinine is at 1.4 with a mean of 48 and a serum bicarbonate is 35 with a sodium level of 141. The patient is on oxygen and the patient's chest x-ray from today is showing cardiomegaly and addition to increased pulmonary vessel markings consistent with fluid overload. The findings are essentially the same as compared to yesterday. In terms of his her oxygenation, the patient is currently on O2 at 4 L with a pulse ox of 95%. She is using the BiPAP overnight at a pressure of 16/5 cm of water with an FiO2 of 50%. She is arousable. She is awake. She is communicating. No other significant events overnight. I kept the patient on a combination of bronchodilators and steroids as the patient was quite bronchospastic and wheezy on yesterday's evaluation. 09/25 2021, the patient remains in the intensive care unit. She is a selective overflow. She is comfortable. She is nothing by mouth. She underwent a bowel prep yesterday and today the patient is going to undergo an EGD and colonoscopy as part of a further workup for her ongoing episodes of GI bleeding. At the same time, the patient is being cheered for an acute hypoxic/hypercapnic respiratory failure. She remains on Lasix 40 mg every 12 hours and Diamox to 50 mg by mouth twice a day. She is feeling better. Pulse ox is up to 97% on 4 L of oxygen by nasal cannula and this can be easily weaned off. Otherwise, no signs of any significant fluid overload. Her bronchospasm and wheezing has improved compared to yesterday and she is less short of breath. She'll be kept on diuretics for now and I will suggest keeping in for another 24 hours. Labs from today was noted. BUN is a 48 with a creatinine of 1.1 and sodium level is at 141. The hemoglobin remains stable despite episodic GI bleeding and hemoglobin currently is at 12.4. No altered mentation. No overnight events. The patient is also going to undergo the colonoscopy and EGD and following that she can be transferred to a medical floor. 09/26/2021, the patient is being seen for a follow-up. Since yesterday, the patient underwent a EGD and a colonoscopy. I had a discussion with the surgeon and the patient has a fairly large duodenal ulcer 2 with stigmata of recent bleeding along with gastritis and esophagitis and diverticulosis. Of significance is a visible vessel in the base of the ulcer and this is considered to be a high-risk for bleeding again. In any rate, the patient has not shown any signs of bleeding overnight. She is resting comfortably in bed. She is on clear liquid diet for now. Hemoglobin currently is at 10.7. Based on my discussion with the general surgeon and gastroenterology, and based on the review of the endoscopic findings, this is considered to be a high risk of rebleeding and the patient is being considered to be transferred to [facility] for further intervention possibly angina ablation of this fairly large duodenal ulcer. She is hemodynamically stable for now. She remains on diuretics and she is on Lasix 40 mg IV every 12 hours and she is also receiving Diamox. The blood work from today shows a white cell count of 9.3. Sodium is at 141 with a BUN of 62 and a creatinine of 1.3. Serum bicarbs at 35. Overall fluid balance is in the order of -1.6 L and -2.8 L for today. Oxygenation has improved and the patient is currently on 4 L of oxygen by nasal cannula with a pulse ox of 97%. The chest x-ray from today is showing improvement in the volume status. The right hemidiaphragm is still elevated. There is improved aeration in the upper lobes bilaterally. Lung volumes are essentially small for now. She is resting comfortably in bed. She has no specific complaints. 80 09/27/2021, I'm seeing the patient for a follow-up. She is comfortable in a chair and she has no specific complaints. She is currently on oxygen at 7 L per minute nasal cannula. She is recovering from acute hypoxic respiratory failure and volume overload along with a component of COPD exacerbation. She remains on bronchodilators patient remains on a prednisone burst taper. In terms of diuretics, the patient is on Lasix 40 mg by mouth daily. The patient is a negative fluid balance for now. At the same time, the patient shows no signs of any GI bleeding. The patient's is on clear liquid diet at this point in time. Hemoglobin is at 7.2, another drop by a gram without evidence of bleeding. No bloody bowel movements at this point in time. As mentioned, the patient has a large duodenal ulcer with a visible vessel and there was a concern of recurrent bleeding and the test lab technician and the surgeons have made recommendations to transfer this patient to a tertiary care center for evaluation of the skin duodenal ulcer. Otherwise, the patient is awake and alert. He is following commands and answering questions. No other issues for now. Arrangements are being made for this transfer. Objective - Vital Signs Vital signs: Vital Signs Temp 97.5 F L 09/27/21 02:00 Pulse 54 L 09/27/21 09:19 Resp 16 09/27/21 09:19 BP 98/52 09/27/21 09:19 Pulse Ox 92 L 09/27/21 09:19 FiO2 40 09/23/21 21:03 Intake & Output 06/01/0909/27/21 09/27/21 18:59 06:59 18:59 Intake Total 500 480 Output Total 1050 2500 Balance - Weight 106.6 kg Intake: Oral 500 480 Output: Urine 1050 2500 Other: Voiding Method Bedside Commode Bedside Commode - Exam Oriented 3, no acute distress. No conversational dyspnea, or use of accessory muscles. The patient is currently on 7 L of nasal cannula Head exam was generally normal. There was no scleral icterus or corneal arcus. Mucous membranes were moist. HEENT examination is grossly unremarkable. Neck supple. Full range of motion. No adenopathy thyromegaly or neck vein distention. Cardiovascular examination reveals regular rhythm rate. S1-S2 normal. No S3 or S4. No discernible murmur noted. Heart sounds are distant. Lungs reveal diffuse rhonchi and crackles. Breath sounds equal. She is not taking deep breaths. No wheezes. The patient continues to have crackles at lung bases bilaterally Abdomen is obese, without bowel sounds. No tenderness. Extremities reveal lower extremity edema, 1+. No cyanosis or clubbing. Skin reveals chronic venous stasis changes to the lower extremities. Neurologic examination is brief but nonfocal. - Labs CBC & Chem 7: 09/27/21 08:05 09/27/21 08:05 Labs: Abnormal Lab Results - Last 24 Hours (Table) 09/26/21 09/26/21 09/26/21 Range/Units 09:30 09:30 09:43 WBC 12.6 H (3.8-10.6) k/uL RBC 2.90 L (3.80-5.40) m/uL Hgb 8.3 L D (11.4-16.0) gm/dL Hct 29.3 L (34.0-46.0) % MCV 101.0 H (80.0-100.0) fL MCHC 28.4 L (31.0-37.0) g/dL Plt Count 134 L (150-450) k/uL ABG pCO2 49 H (35-45) mmHg ABG pO2 64 L (83-108) mmHg ABG HCO3 30 H (21-25) mmol/L ABG Total CO2 32 H (19-24) mmol/L ABG O2 Saturation 93.0 L (94-97) % Sodium (137-145) mmol/L Potassium 3.2 L (3.5-5.1) mmol/L Carbon Dioxide 32 H (22-30) mmol/L BUN 60 H (7-17) mg/dL Creatinine 1.36 H (0.52-1.04) mg/dL Glucose 146 H (74-99) mg/dL Calcium 7.4 L (8.4-10.2) mg/dL 09/27/21 09/27/21 Range/Units 08:05 08:05 WBC (3.8-10.6) k/uL RBC 2.49 L (3.80-5.40) m/uL Hgb 7.2 L (11.4-16.0) gm/dL Hct 25.3 L (34.0-46.0) % MCV 101.7 H (80.0-100.0) fL MCHC 28.5 L (31.0-37.0) g/dL Plt Count (150-450) k/uL ABG pCO2 (35-45) mmHg ABG pO2 (83-108) mmHg ABG HCO3 (21-25) mmol/L ABG Total CO2 (19-24) mmol/L ABG O2 Saturation (94-97) % Sodium 136 L (137-145) mmol/L Potassium (3.5-5.1) mmol/L Carbon Dioxide (22-30) mmol/L BUN 56 H (7-17) mg/dL Creatinine 1.08 H (0.52-1.04) mg/dL Glucose 136 H (74-99) mg/dL Calcium 7.6 L (8.4-10.2) mg/dL Assessment and Plan Plan: Acute hypoxic respiratory failure, currently on oxygen at 7 L of oxygen by nasal cannula. The patient is also utilizing BiPAP overnight at a pressure of 16/5 cm of water. The patient oxygenation was improving and the patient was down to 4 L and this morning she is up to 7 L. The chest x-ray was also improving. We have taken the patient off the IV Lasix and will put her on oral Lasix and the patient has been negative fluid balance. She has an incentive spirometer. Repeat the chest x-ray today. Monitor the hemoglobin. She is on a prednisone burst taper along with po diuresis. Acute on chronic hypoxic and hypercapnic respiratory failure, most recent blood gases showed improvement and acid base status Possible history of sleep apnea syndrome and/or Pickwickian syndrome. The patient is currently using BiPAP at a pressure of 16/5 cm of water and FiO2 of 50% overnight. COPD exacerbation , improving Severe pulmonary hypertension with a PA pressure of around at least 69 mmHg Right hemidiaphragmatic elevation, possible paralysis Duodenal ulcer 2 with stigmata of recent bleed and the visible vessel within the ulcer with high risk of rebleeding. The patient is being considered for transfer to [facility]. The patient had recent GI bleed and she had blood blood per rectum. Most recent hemoglobin is at 7.3 Previous history of insertion and removal tracheostomy tube and a PEG tube as part of her treatment of sinus cancer Shortness of breath, likely related to underlying CHF. History of hypertension. Chronic hypercapnic respiratory failure. Elevated troponin, rule out myocardial ischemia. 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 History of depression. Prior history of tobacco use. Polycythemia, likely secondary to chronic hypoxemic respiratory failure. Her GI bleed, the patient was having bright red blood per rectum, hemoglobin progressively dropping in hemoglobin today is at 7.2. Plan: The blood gases from yesterday showed a stable acid base status and the patient's patient was in 7.41 with a pCO2 of 49 and a pO2 of 64 consistent with chronic hypoxic and hypercapnic respiratory failure and this was done prior to 40%. This morning, the patient's is on 7 L of oxygen by nasal cannula. We'll continue oral diuretics. We'll continue bronchodilators. We'll use incentive spirometer. We'll repeat a chest x-ray. We'll attempt to wean down the FiO2 as tolerated. CO2 is Lasix 40 mg by mouth daily Wean down the FiO2 currently on 7 L she should be able to wean down further prednisone burst taper IV Protonix Chest x-rays to be repeated Awaiting transfer to [facility] regarding her complicated duodenal ulcer. Repeat Hb at 1300 We'll continue to follow
[2021-09-27] MEDS ORDERED: POTASSIUM CHLORIDE ER 20 MEQ TAB.ER PO SCH (10:00)
--- NOTE | 2021-09-27 10:09 | XR ---
EXAMINATION TYPE: XR chest 1V portable DATE OF EXAM: 09/27/2021 COMPARISON: 09/26/2021 INDICATION: Shortness of breath TECHNIQUE: Single frontal view of the chest is obtained. FINDINGS: The heart size is probably prominent. The pulmonary vasculature is normal. No suspicious focal consolidation. IMPRESSION: 1. No acute pulmonary process. 2. Mild cardiomegaly
--- NOTE | 2021-09-27 13:00 | P.PN ---
Subjective Progress Note Date: 09/27/21 CHIEF COMPLAINT: CHF exacerbation HISTORY OF PRESENT ILLNESS: Surgical service following in regards to GI bleeding. Patient remains in the ICU. Patient has had no further bowel movements. No bleeding per rectum. She denies any abdominal pain. She's sitting at bedside chair. She is awaiting transfer to [facility]. Her hemoglobin continues to trend downwards from 8.3-7.2. White count normalized to 8.9 potassium is 3.6 creatinine 1.08 sodium 136 PHYSICAL EXAM: VITAL SIGNS: Reviewed. stable GENERAL: Well-developed in no acute distress. HEENT: No sclera icterus. Extraocular movements grossly intact. Moist buccal mucosa. Head is atraumatic, normocephalic. ABDOMEN: Soft. Nondistended. NEUROLOGIC: Sleeping comfortably ASSESSMENT: 1. Acute GI bleed with bloody stools status post EGD and colonoscopy with results showing duodenal ulcer 2 with stigmata of recent bleeding, gastritis, fungal esophagitis and diverticulosis 2. CHF exacerbation 3. Hypokalemia improved PLAN: -Awaiting transfer to tertiary care center for repeat EGD and possible angioembolization -Continue PPI -Continue to monitor hemoglobin -Continue to monitor for signs and symptoms of bleeding -Continue ICU management -Continue supportive care Physician Process Expert note has been reviewed by physician. Signing provider agrees with the documented findings, assessment, and plan of care. Objective - Vital Signs Vital signs: Vital Signs Temp 97.5 F L 09/27/21 02:00 Pulse 56 L 09/27/21 11:12 Resp 16 09/27/21 09:19 BP 98/52 09/27/21 09:19 Pulse Ox 92 L 09/27/21 09:19 FiO2 40 09/23/21 21:03 Intake & Output 09/26/21 09/27/21 09/27/21 18:59 06:59 18:59 Intake Total 500 480 Output Total 1050 2500 Balance - -2019 Weight 106.6 kg Intake: Oral 500 480 Output: Urine 1050 2500 Other: Voiding Method Bedside Commode Bedside Commode - Labs CBC & Chem 7: 09/27/21 08:05 09/27/21 08:05 Labs: Abnormal Lab Results - Last 24 Hours (Table) 09/27/21 09/27/21 09/27/21 Range/Units 08:05 08:05 09:36 RBC 2.49 L (3.80-5.40) m/uL Hgb 7.2 L (11.4-16.0) gm/dL Hct 25.3 L (34.0-46.0) % MCV 101.7 H (80.0-100.0) fL MCHC 28.5 L (31.0-37.0) g/dL Sodium 136 L (137-145) mmol/L BUN 56 H (7-17) mg/dL Creatinine 1.08 H (0.52-1.04) mg/dL Glucose 136 H (74-99) mg/dL Calcium 7.6 L (8.4-10.2) mg/dL Crossmatch See Detail
--- NOTE | 2021-09-27 16:04 | P.PN ---
Subjective Progress Note Date: 09/27/21 Principal diagnosis: Acute on chronic hypoxic and hypercapnic respiratory failure COPD exacerbation Severe pulmonary hypertension [address] Len Tran. 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 Has had about 19 surgeries last one being about 3 years ago. 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 Patient had a MRI in March 2020 that did not show any recurrence. Patient had some shortness of breath on and off for about a month. More so in the last 2 days. Congested cough. No obvious fever and chills. Tired. Patient dozes off very easily. Requiring BiPAP in the ER. Patient's daughter the bedside to give most of the history. Patient rather tired and lethargic. 09/27/2021 Patient remains comfortable and she has no specific complaints. She is currently on oxygen at 7 L per minute nasal cannula. She remains on bronchodilators patient remains on a prednisone burst taper; La six 40 mg by mouth daily. The patient is a negative fluid balance for now. At the same time, the patient shows no signs of any GI bleeding. The patient's is on clear liquid diet at this point in time. Hemoglobin is at 7.2, another drop by a gram without evidence of bleeding. No bloody bowel movements at this point in time. --- patient has a large duodenal ulcer with a visible vessel and there was a concern of recurrent bleeding and the child care attendant and the surgeons have made recommendations to transfer this patient to a tertiary care center for evaluation of the skin duodenal ulcer. Otherwise, the patient is awake and alert. He is following commands and answering questions. No other issues for now. Arrangements are being made for this transfer. Objective - Vital Signs Vital signs: Vital Signs Temp 97.5 F L 09/27/21 02:00 Pulse 54 L 09/27/21 11:02 Resp 16 09/27/21 09:19 BP 98/52 09/27/21 09:19 Pulse Ox 92 L 09/27/21 09:19 FiO2 40 09/23/21 21:03 Intake & Output 09/26/21 09/27/21 09/27/21 18:59 06:59 18:59 Intake Total 500 480 Output Total 1050 2500 Balance Weight 106.6 kg Intake: Oral 500 480 Output: Urine 1050 2500 Other: Voiding Method Bedside Commode Bedside Commode - Exam GENERAL: , Up in a chair awake, some shortness of breath EYES: Left eye absent HEENT: External appearance of nose and ears normal, some facial asymmetry NECK: JVD not raised; masses not palpable. HEART: First and second heart sounds are normal; some edema present LUNGS: Rate increased, Diminished breath sounds ABDOMEN: Soft, nontender, liver spleen not palpable, no masses palpable. PSYCH: Answering questions appropriately NEUROLOGICAL: Cranial nerves grossly intact; no facial asymmetry - Labs CBC & Chem 7: 09/27/21 08:05 09/27/21 08:05 Labs: Abnormal Lab Results - Last 24 Hours (Table) 09/27/21 09/27/21 Range/Units 08:05 08:05 RBC 2.49 L (3.80-5.40) m/uL Hgb 7.2 L (11.4-16.0) gm/dL Hct 25.3 L (34.0-46.0) % MCV 101.7 H (80.0-100.0) fL MCHC 28.5 L (31.0-37.0) g/dL Sodium 136 L (137-145) mmol/L BUN 56 H (7-17) mg/dL Creatinine 1.08 H (0.52-1.04) mg/dL Glucose 136 H (74-99) mg/dL Calcium 7.6 L (8.4-10.2) mg/dL Assessment and Plan Assessment: 1. Probable pneumonia suspected gram-negative organism. : Improved Ceftriaxone 1 g every 12-discontinued . Procalcitonin 0.12. 2. Acute hypoxic and hypercapnic respiratory failure secondary to pneumonia and fluid overload: Improving BiPAP at night. 4 L nasal cannula 3. Acute COPD exacerbation and a previous smoker: Better IV Solu-Medrol 60 mg every 8-discontinued. Bronchodilators 4. Acute encephalopathy: improved Follow clinically 5. Pulmonary edema IV Lasix now by mouth. Seen by cardiology 6. Hypernatremia from free water deficit: Better 7. Acute blood loss anemia from duodenal ulcer bleed: Gradually worsening Admission hemoglobin 14.4. Down to 8.3 8. Severe pulmonary hypertension Possible VQ scan when patient more stable. 9. Essential hypertension Toprol-XL 25 mg a day 10. Duodenal ulcer with stigmata of acute bleeding including a blood clot, with gastritis/ Fungal esophagitis PPI Protonix 40 mg twice a day Diflucan CODE STATUS; Full code
[2021-09-27 19:10] LABS: Calcium 7.8 mg/dL (8.4-10.2); Potassium 3.7 mmol/L (3.5-5.1)
[2021-09-27 19:26] LABS: Basophils % (A) 0 %; Eosinophils % (A) 0 %; HCT 26.9 % (34.0-46.0); HGB 8.2 gm/dL (11.4-16.0); Hypochromasia Marked; Lymphocytes # (A) 0.8 k/uL (1.0-4.8); Lymphocytes % (A) 8 %; MCH 29.9 pg (25.0-35.0); MCHC 30.3 g/dL (31.0-37.0); MCV 98.6 fL (80.0-100.0); Macrocytosis Slight; Mean Platelet Volume 10.5; Monocytes # (A) 0.4 k/uL (0-1.0); Monocytes % (A) 4 %; Neutrophils # (A) 9.4 k/uL (1.3-7.7); Neutrophils % (A) 87 %; Platelet Count 140 k/uL (150-450); RBC 2.73 m/uL (3.80-5.40); RDW 15.7 % (11.5-15.5); WBC 10.8 k/uL (3.8-10.6)
[2021-09-27] MEDS: ESCITALOPRAM 20 MG TAB PO SCH (21:47)
[2021-09-28 06:54] LABS: Anisocytosis Slight; HCT 23.8 % (34.0-46.0); HGB 7.3 gm/dL (11.4-16.0); Hypochromasia Marked; MCH 29.8 pg (25.0-35.0); MCHC 30.7 g/dL (31.0-37.0); Mean Platelet Volume 9.3; Platelet Count 192 k/uL (150-450); RBC 2.45 m/uL (3.80-5.40); WBC 9.5 k/uL (3.8-10.6)
[2021-09-28 07:09] LABS: Calcium 7.8 mg/dL (8.4-10.2); Potassium 3.5 mmol/L (3.5-5.1)
[2021-09-28] MEDS: IPRATROPIUM-ALBUTEROL 3 ML NEB INHALATION SCH ×4 (07:12→19:23)
[2021-09-28] MEDS: FORMOTEROL FUMARATE 20 MCG/2 ML NEBU INHALATION SCH ×2 (07:12→19:34)
[2021-09-28] MEDS: BUDESONIDE 1 MG/2 ML NEBU INHALATION SCH ×2 (07:12→19:23)
--- NOTE | 2021-09-28 07:54 | P.PN ---
Subjective Progress Note Date: 09/28/21 76-year-old female patient was being seen in follow-up in the intensive care unit. The patient is obese with a BMI of 40.3. The patient has also history of obstructive sleep apnea/obesity hypoventilation syndrome and addition to chronic hypercapnic respiratory failure and hypoxic respiratory failure. The patient is having worsening shortness of breath secondary to decompensated CHF. The patient otherwise is stable. The patient is alternating between BiPAP at a pressure of 60/5 with an FiO2 of 50% and oxygen at 4 L per minute nasal cannula. The patient remains on Lasix 40 g IV every 24 hours. hours. Repeat chest x- ray from today showed cardiomegaly and ongoing continue with diffuse interst itial densities consistent with CHF. The patient is responding to diuretics. The patient was -2.5 L in fluid balance over the past 24 hours and currently the patient is still producing adequate amount of urine output. BUN is at 27 with a creatinine of 1 and sodium level is at 141. The white cell count is at 6.9 with a hemoglobin of 13.8. No other significant events overnight. IV fluids are c urrently at KVO. Patient is also on Diamox to counteract underlying metabolic alkalosis developing with diuresis. 09/24/2021, the patient is being seen for a follow-up. The patient still being subjected to diuretics and the patient is currently on a combination of Lasix and acetazolamide. The patient is receiving Lasix 40 mg to 12 hours and Diamox 250 mg twice a day. On today's evaluation, the fluid balance over the past 24 hours has been negative 1. liters. The blood work from today shows a white cell count of 8.3 with hemoglobin of 12.4, the creatinine is at 1.4 with a mean of 48 and a serum bicarbonate is 35 with a sodium level of 141. The patient is on oxygen and the patient's chest x-ray from today is showing cardiomegaly and addition to increased pulmonary vessel markings consistent with fluid overload. The findings are essentially the same as compared to yesterday. In terms of his her oxygenation, the patient is currently on O2 at 4 L with a pulse ox of 95%. She is using the BiPAP overnight at a pressure of 16/5 cm of water with an FiO2 of 50%. She is arousable. She is awake. She is communicating. No other significant events overnight. I kept the patient on a combination of bronchodilators and steroids as the patient was quite bronchospastic and wheezy on yesterday's evaluation. 09/25 2021, the patient remains in the intensive care unit. She is a selective overflow. She is comfortable. She is nothing by mouth. She underwent a bowel prep yesterday and today the patient is going to undergo an EGD and colonoscopy as part of a further workup for her ongoing episodes of GI bleeding. At the same time, the patient is being cheered for an acute hypoxic/hypercapnic respiratory failure. She remains on Lasix 40 mg every 12 hours and Diamox to 50 mg by mouth twice a day. She is feeling better. Pulse ox is up to 97% on 4 L of oxygen by nasal cannula and this can be easily weaned off. Otherwise, no signs of any significant fluid overload. Her bronchospasm and wheezing has improved compared to yesterday and she is less short of breath. She'll be kept on diuretics for now and I will suggest keeping in for another 24 hours. Labs from today was noted. BUN is a 48 with a creatinine of 1.1 and sodium level is at 141. The hemoglobin remains stable despite episodic GI bleeding and hemoglobin currently is at 12.4. No altered mentation. No overnight events. The patient is also going to undergo the colonoscopy and EGD and following that she can be transferred to a medical floor. 09/26/2021, the patient is being seen for a follow-up. Since yesterday, the patient underwent a EGD and a colonoscopy. I had a discussion with the surgeon and the patient has a fairly large duodenal ulcer 2 with stigmata of recent bleeding along with gastritis and esophagitis and diverticulosis. Of significance is a visible vessel in the base of the ulcer and this is considered to be a high-risk for bleeding again. In any rate, the patient has not shown any signs of bleeding overnight. She is resting comfortably in bed. She is on clear liquid diet for now. Hemoglobin currently is at 10.7. Based on my discussion with the general surgeon and gastroenterology, and based on the review of the endoscopic findings, this is considered to be a high risk of rebleeding and the patient is being considered to be transferred to [facility] for further intervention possibly angina ablation of this fairly large duodenal ulcer. She is hemodynamically stable for now. She remains on diuretics and she is on Lasix 40 mg IV every 12 hours and she is also receiving Diamox. The blood work from today shows a white cell count of 9.3. Sodium is at 141 with a BUN of 62 and a creatinine of 1.3. Serum bicarbs at 35. Overall fluid balance is in the order of -1.6 L and -2.8 L for today. Oxygenation has improved and the patient is currently on 4 L of oxygen by nasal cannula with a pulse ox of 97%. The chest x-ray from today is showing improvement in the volume status. The right hemidiaphragm is still elevated. There is improved aeration in the upper lobes bilaterally. Lung volumes are essentially small for now. She is resting comfortably in bed. She has no specific complaints. 79 09/27/2021, I'm seeing the patient for a follow-up. She is comfortable in a chair and she has no specific complaints. She is currently on oxygen at 7 L per minute nasal cannula. She is recovering from acute hypoxic respiratory failure and volume overload along with a component of COPD exacerbation. She remains on bronchodilators patient remains on a prednisone burst taper. In terms of diuretics, the patient is on Lasix 40 mg by mouth daily. The patient is a negative fluid balance for now. At the same time, the patient shows no signs of any GI bleeding. The patient's is on clear liquid diet at this point in time. Hemoglobin is at 7.2, another drop by a gram without evidence of bleeding. No bloody bowel movements at this point in time. As mentioned, the patient has a large duodenal ulcer with a visible vessel and there was a concern of recurrent bleeding and the industrial insulator and the surgeons have made recommendations to transfer this patient to a tertiary care center for evaluation of the skin duodenal ulcer. Otherwise, the patient is awake and alert. He is following commands and answering questions. No other issues for now. Arrangements are being made for this transfer. 09/28/2021, the patient is stable on 4 L of oxygen by nasal cannula. No bleeding. Hemoglobin has been fluctuating and the patient had a 7.2 hemoglobin yesterday morning, subsequent level came back at 8.2 and this morning is at 7.3. Nevertheless, there is no evidence of any acute bleeding at this point in time. The patient is in a negative fluid balance that she has diuresed very well over the past several days and oxidation is also improved. This morning, she is on 4 L of oxygen by nasal cannula. This is a electrodes are all stable. The bicarb is at 32 with a sodium level of 136 antibiotics 41 with a creatinine of 1.09. The ultimate plan is to transfer this patient to a tertiary care center because of his complicated was in the levels. Currently she is taking a full liquid diet for now. Hemodynamically stable. No nausea. No vomiting. No abdominal pain. No altered mentation. No anticoagulation for now. She remains on IV Protonix. IV fluids of at KVO and she is on 4 L which could be further weaned down knowing that her pulse ox is around 95%. Objective - Vital Signs Vital signs: Vital Signs Temp 97.7 F 09/28/21 02:00 Pulse 72 09/28/21 07:37 Resp 22 09/28/21 02:00 BP 115/53 09/28/21 02:00 Pulse Ox 97 09/28/21 02:00 FiO2 40 09/23/21 21:03 Intake & Output 09/27/21 09/28/21 09/28/21 18:59 06:59 18:59 Intake Total 600 Output Total 1500 550 Balance -900 -550 Weight 106.6 kg 103.4 kg Intake: Oral 600 Output: Urine 1500 550 Other: Voiding Method Bedside Commode Bedside Commode - Exam Oriented 3, no acute distress. No conversational dyspnea, or use of accessory muscles. The patient is currently on 7 L of nasal cannula Head exam was generally normal. There was no scleral icterus or corneal arcus. Mucous membranes were moist. HEENT examination is grossly unremarkable. Neck supple. Full range of motion. No adenopathy thyromegaly or neck vein distention. Cardiovascular examination reveals regular rhythm rate. S1-S2 normal. No S3 or S4. No discernible murmur noted. Heart sounds are distant. Lungs reveal diffuse rhonchi and crackles. Breath sounds equal. She is not taking deep breaths. No wheezes. The patient continues to have crackles at lung bases bilaterally Abdomen is obese, without bowel sounds. No tenderness. Extremities reveal lower extremity edema, 1+. No cyanosis or clubbing. Skin reveals chronic venous stasis changes to the lower extremities. Neurologic examination is brief but nonfocal. - Labs CBC & Chem 7: 09/28/21 06:33 09/28/21 06:33 Labs: Abnormal Lab Results - Last 24 Hours (Table) 09/27/21 09/27/21 09/27/21 Range/Units 08:05 08:05 09:36 WBC (3.8-10.6) k/uL RBC 2.49 L (3.80-5.40) m/uL Hgb 7.2 L (11.4-16.0) gm/dL Hct 25.3 L (34.0-46.0) % MCV 101.7 H (80.0-100.0) fL MCHC 28.5 L (31.0-37.0) g/dL RDW (11.5-15.5) % Plt Count (150-450) k/uL Neutrophils # (1.3-7.7) k/uL Lymphocytes # (1.0-4.8) k/uL Sodium 136 L (137-145) mmol/L Carbon Dioxide (22-30) mmol/L BUN 56 H (7-17) mg/dL Creatinine 1.08 H (0.52-1.04) mg/dL Glucose 136 H (74-99) mg/dL Calcium 7.6 L (8.4-10.2) mg/dL Crossmatch See Detail 09/27/21 09/27/21 09/28/21 Range/Units 18:46 18:46 06:33 WBC 10.8 H (3.8-10.6) k/uL RBC 2.73 L 2.45 L (3.80-5.40) m/uL Hgb 8.2 L 7.3 L (11.4-16.0) gm/dL Hct 26.9 L 23.8 L (34.0-46.0) % MCV (80.0-100.0) fL MCHC 30.3 L 30.7 L (31.0-37.0) g/dL RDW 15.7 H 16.0 H (11.5-15.5) % Plt Count 140 L (150-450) k/uL Neutrophils # 9.4 H (1.3-7.7) k/uL Lymphocytes # 0.8 L (1.0-4.8) k/uL Sodium 135 L (137-145) mmol/L Carbon Dioxide (22-30) mmol/L BUN 50 H (7-17) mg/dL Creatinine 1.08 H (0.52-1.04) mg/dL Glucose 146 H (74-99) mg/dL Calcium 7.8 L (8.4-10.2) mg/dL Crossmatch 09/28/21 Range/Units 06:33 WBC (3.8-10.6) k/uL RBC (3.80-5.40) m/uL Hgb (11.4-16.0) gm/dL Hct (34.0-46.0) % MCV (80.0-100.0) fL MCHC (31.0-37.0) g/dL RDW (11.5-15.5) % Plt Count (150-450) k/uL Neutrophils # (1.3-7.7) k/uL Lymphocytes # (1.0-4.8) k/uL Sodium 136 L (137-145) mmol/L Carbon Dioxide 32 H (22-30) mmol/L BUN 41 H (7-17) mg/dL Creatinine 1.09 H (0.52-1.04) mg/dL Glucose (74-99) mg/dL Calcium 7.8 L (8.4-10.2) mg/dL Crossmatch Assessment and Plan Plan: Acute hypoxic respiratory failure, currently on oxygen at 4 L of oxygen by nasal cannula. The patient is also utilizing BiPAP overnight at a pressure of 16/5 cm of water. The patient oxygenation was improving She has an incentive spirometer. Repeat the chest x-ray today. Monitor the hemoglobin. She is on a prednisone burst taper along with po diuresis. Acute on chronic hypoxic and hypercapnic respiratory failure, most recent blood gases showed improvement and acid base status Possible history of sleep apnea syndrome and/or Pickwickian syndrome. The patient is currently using BiPAP at a pressure of 16/5 cm of water and FiO2 of 50% overnight. COPD exacerbation , improving Severe pulmonary hypertension with a PA pressure of around at least 69 mmHg Right hemidiaphragmatic elevation, possible paralysis Duodenal ulcer 2 with stigmata of recent bleed and the visible vessel within the ulcer with high risk of rebleeding. The patient is being considered for transfer to [facility]. The patient had recent GI bleed and she had blood blood per rectum. Most recent hemoglobin is at 7.3 Previous history of insertion and removal tracheostomy tube and a PEG tube as part of her treatment of sinus cancer Shortness of breath, likely related to underlying CHF. History of hypertension. Chronic hypercapnic respiratory failure. Elevated troponin, rule out myocardial ischemia. 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 History of depression. Prior history of tobacco use. Polycythemia, likely secondary to chronic hypoxemic respiratory failure. Her GI bleed, the patient was having bright red blood per rectum, hemoglobin progressively dropping in hemoglobin today is at 7.3 Plan: Lasix 40 mg by mouth daily Wean down the FiO2 currently on 4 L she should be able to wean down further prednisone burst taper IV Protonix Awaiting transfer to [facility] regarding her complicated duodenal ulcer. No evidence of any GI bleeding. The patient is stable. Continue clear liquid diet and the patient can be transferred out of the intensive care unit We'll continue to follow
[2021-09-28] MEDS: predniSONE 10 MG TAB PO SCH (08:42)
[2021-09-28] MEDS: CHOLECALCIFEROL 25 MCG (1000 IU) TABLET PO SCH (08:43)
[2021-09-28] MEDS: POTASSIUM CHLORIDE ER 20 MEQ TAB.ER PO SCH ×2 (08:43→11:10)
[2021-09-28] MEDS: FUROSEMIDE 40 MG TAB PO SCH (08:43)
[2021-09-28] MEDS: guaiFENesin 600 MG TABLET.ER PO SCH ×2 (08:43→20:34)
[2021-09-28] MEDS: FLUCONAZOLE 100 MG TAB PO SCH (08:43)
[2021-09-28] MEDS: AMIODARONE 200 MG TAB PO SCH ×3 (08:43→20:34)
[2021-09-28] MEDS: METOPROLOL SUCCINATE (ER) 25 MG TAB.ER.24H PO SCH (08:43)
[2021-09-28] MEDS: PANTOPRAZOLE 40 MG/10 ML VIAL IVP SCH ×2 (11:09→20:34)
--- NOTE | 2021-09-28 11:21 | P.PN ---
Progress Note - Text Progress Note Date: 09/28/21 Patient remains relatively stable. Her he will was a 0.3. There is no active GI bleed. On exam vitals are stable. Abdomen soft. Patient is awaiting transfer to tertiary care center for bleeding duodenal ulcer
--- NOTE | 2021-09-28 15:58 | P.PN ---
Subjective Progress Note Date: 09/28/21 Principal diagnosis: Acute on chronic hypoxic and hypercapnic respiratory failure COPD exacerbation Severe pulmonary hypertension [address] Len Tran. 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 Has had about 19 surgeries last one being about 3 years ago. 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 Patient had a MRI in March 2020 that did not show any recurrence. Patient had some shortness of breath on and off for about a month. More so in the last 2 days. Congested cough. No obvious fever and chills. Tired. Patient dozes off very easily. Requiring BiPAP in the ER. Patient's daughter the bedside to give most of the history. Patient rather tired and lethargic. 09/27/2021 Patient remains comfortable and she has no specific complaints. She is currently on oxygen at 7 L per minute nasal cannula. She remains on bronchodilators patient remains on a prednisone burst taper; La six 40 mg by mouth daily. The patient is a negative fluid balance for now. At the same time, the patient shows no signs of any GI bleeding. The patient's is on clear liquid diet at this point in time. Hemoglobin is at 7.2, another drop by a gram without evidence of bleeding. No bloody bowel movements at this point in time. --- patient has a large duodenal ulcer with a visible vessel and there was a concern of recurrent bleeding and the log buyer and the surgeons have made recommendations to transfer this patient to a tertiary care center for evaluation of the skin duodenal ulcer. Otherwise, the patient is awake and alert. He is following commands and answering questions. No other issues for now. Arrangements are being made for this transfer. 09/28/2021 Patient is seen and evaluated sitting up in bedside chair in ICU; patient's daughter is at bedside; patient awaits transfer to [facility] for higher level of care for complicated duodenal ulcer with GI and possible interventional radiology input Patient is status post EGD on 09/25/2021 which revealed duodenal ulcers 2 with stigmata of recent bleeding; per GI recommendations patient will need to have EGD repeated with possible clips versus interventional radiology for embolizatio n Patient is currently stable and remains on O2 at 4 L per nasal cannula blood work reveals hemoglobin 7.0 which is a drop from 8.2 earlier in the morning; patient continues to have no evidence of any acute bleeding --- Patient has been placed on a clear liquid diet and tolerating well; remains on Protonix 40 mg IV daily -- Patient has been deemed stable to transfer to [facility] telemetry till bed opening at [facility] patient needs to be transferred for higher level of care Objective - Vital Signs Vital signs: Vital Signs Temp 97.7 F 09/28/21 02:00 Pulse 72 09/28/21 07:37 Resp 22 09/28/21 02:00 BP 115/53 09/28/21 02:00 Pulse Ox 97 09/28/21 02:00 FiO2 40 09/23/21 21:03 Intake & Output 09/27/21 09/28/21 09/28/21 18:59 06:59 18:59 Intake Total 600 Output Total 1500 550 Balance -900 -550 Weight 106.6 kg 103.4 kg Intake: Oral 600 Output: Urine 1500 550 Other: Voiding Method Bedside Commode Bedside Commode - Exam GENERAL: , Up in a chair awake, some shortness of breath EYES: Left eye absent HEENT: External appearance of nose and ears normal, some facial asymmetry NECK: JVD not raised; masses not palpable. HEART: First and second heart sounds are normal; some edema present LUNGS: Rate increased, Diminished breath sounds ABDOMEN: Soft, nontender, liver spleen not palpable, no masses palpable. PSYCH: Answering questions appropriately NEUROLOGICAL: Cranial nerves grossly intact; no facial asymmetry - Labs CBC & Chem 7: 09/28/21 06:33 09/28/21 06:33 Labs: Abnormal Lab Results - Last 24 Hours (Table) 09/27/21 09/27/21 09/27/21 Range/Units 09:36 18:46 18:46 WBC 10.8 H (3.8-10.6) k/uL RBC 2.73 L (3.80-5.40) m/uL Hgb 8.2 L (11.4-16.0) gm/dL Hct 26.9 L (34.0-46.0) % MCHC 30.3 L (31.0-37.0) g/dL RDW 15.7 H (11.5-15.5) % Plt Count 140 L (150-450) k/uL Neutrophils # 9.4 H (1.3-7.7) k/uL Lymphocytes # 0.8 L (1.0-4.8) k/uL Sodium 135 L (137-145) mmol/L Carbon Dioxide (22-30) mmol/L BUN 50 H (7-17) mg/dL Creatinine 1.08 H (0.52-1.04) mg/dL Glucose 146 H (74-99) mg/dL Calcium 7.8 L (8.4-10.2) mg/dL Crossmatch See Detail 09/28/21 09/28/21 Range/Units 06:33 06:33 WBC (3.8-10.6) k/uL RBC 2.45 L (3.80-5.40) m/uL Hgb 7.3 L (11.4-16.0) gm/dL Hct 23.8 L (34.0-46.0) % MCHC 30.7 L (31.0-37.0) g/dL RDW 16.0 H (11.5-15.5) % Plt Count (150-450) k/uL Neutrophils # (1.3-7.7) k/uL Lymphocytes # (1.0-4.8) k/uL Sodium 136 L (137-145) mmol/L Carbon Dioxide 32 H (22-30) mmol/L BUN 41 H (7-17) mg/dL Creatinine 1.09 H (0.52-1.04) mg/dL Glucose (74-99) mg/dL Calcium 7.8 L (8.4-10.2) mg/dL Crossmatch Assessment and Plan Assessment: 1. Probable pneumonia suspected gram-negative organism. : Improved Ceftriaxone 1 g every 12-discontinued . Procalcitonin 0.12. 2. Acute hypoxic and hypercapnic respiratory failure secondary to pneumonia and fluid overload: Improving BiPAP at night. 4 L nasal cannula 3. Acute COPD exacerbation and a previous smoker: Better IV Solu-Medrol 60 mg every 8-discontinued. Bronchodilators 4. Acute encephalopathy: improved Follow clinically 5. Pulmonary edema IV Lasix now by mouth. Seen by cardiology 6. Hypernatremia from free water deficit: Better 7. Acute blood loss anemia from duodenal ulcer bleed: Gradually worsening Admission hemoglobin 14.4. Down to 8.3 8. Severe pulmonary hypertension Possible VQ scan when patient more stable. 9. Essential hypertension Toprol-XL 25 mg a day 10. Duodenal ulcer with stigmata of acute bleeding including a blood clot, with gastritis/ Fungal esophagitis PPI Protonix 40 mg twice a day Diflucan CODE STATUS; Full code
[2021-09-28] MEDS: ESCITALOPRAM 20 MG TAB PO SCH (20:34)
[2021-09-29 07:10] LABS: Anisocytosis Slight; HCT 22.9 % (34.0-46.0); Hypochromasia Marked; MCH 28.3 pg (25.0-35.0); MCHC 28.6 g/dL (31.0-37.0); Macrocytosis Slight; Mean Platelet Volume 8.8; Platelet Count 208 k/uL (150-450); RBC 2.31 m/uL (3.80-5.40); RDW 16.2 % (11.5-15.5); WBC 9.8 k/uL (3.8-10.6)
[2021-09-29 07:25] LABS: HGB 6.5 gm/dL (11.4-16.0)
[2021-09-29] MEDS: FORMOTEROL FUMARATE 20 MCG/2 ML NEBU INHALATION SCH ×2 (07:41→19:54)
[2021-09-29] MEDS: IPRATROPIUM-ALBUTEROL 3 ML NEB INHALATION SCH ×4 (07:41→19:55)
[2021-09-29] MEDS: BUDESONIDE 1 MG/2 ML NEBU INHALATION SCH ×2 (07:41→19:54)
[2021-09-29] MEDS: AMIODARONE 200 MG TAB PO SCH ×3 (08:18→21:27)
[2021-09-29] MEDS: FUROSEMIDE 40 MG TAB PO SCH ×3 (08:18→17:19)
[2021-09-29] MEDS: METOPROLOL SUCCINATE (ER) 25 MG TAB.ER.24H PO SCH (08:18)
[2021-09-29] MEDS: predniSONE 10 MG TAB PO SCH (08:22)
[2021-09-29] MEDS: CHOLECALCIFEROL 25 MCG (1000 IU) TABLET PO SCH (08:23)
[2021-09-29] MEDS: guaiFENesin 600 MG TABLET.ER PO SCH ×2 (08:23→21:27)
[2021-09-29] MEDS: PANTOPRAZOLE 40 MG/10 ML VIAL IVP SCH ×2 (08:23→21:27)
[2021-09-29] MEDS: FLUCONAZOLE 100 MG TAB PO SCH (08:23)
[2021-09-29] MEDS ORDERED: SODIUM CHLORIDE 0.9% 500 ML 500 ML IV ONE (08:39)
[2021-09-29 10:40] LABS: Glucose,Whole Blood 102 mg/dL (75-99)
--- NOTE | 2021-09-29 11:50 | P.PN ---
Subjective Progress Note Date: 09/29/21 76-year-old female patient was being seen in follow-up in the intensive care unit. The patient is obese with a BMI of 40.3. The patient has also history of obstructive sleep apnea/obesity hypoventilation syndrome and addition to chronic hypercapnic respiratory failure and hypoxic respiratory failure. The patient is having worsening shortness of breath secondary to decompensated CHF. The patient otherwise is stable. The patient is alternating between BiPAP at a pressure of 60/5 with an FiO2 of 50% and oxygen at 4 L per minute nasal cannula. The patient remains on Lasix 40 g IV every 24 hours. hours. Repeat chest x- ray from today showed cardiomegaly and ongoing continue with diffuse interst itial densities consistent with CHF. The patient is responding to diuretics. The patient was -2.5 L in fluid balance over the past 24 hours and currently the patient is still producing adequate amount of urine output. BUN is at 27 with a creatinine of 1 and sodium level is at 141. The white cell count is at 6.9 with a hemoglobin of 13.8. No other significant events overnight. IV fluids are c urrently at KVO. Patient is also on Diamox to counteract underlying metabolic alkalosis developing with diuresis. 09/24/2021, the patient is being seen for a follow-up. The patient still being subjected to diuretics and the patient is currently on a combination of Lasix and acetazolamide. The patient is receiving Lasix 40 mg to 12 hours and Diamox 250 mg twice a day. On today's evaluation, the fluid balance over the past 24 hours has been negative 1. liters. The blood work from today shows a white cell count of 8.3 with hemoglobin of 12.4, the creatinine is at 1.4 with a mean of 48 and a serum bicarbonate is 35 with a sodium level of 141. The patient is on oxygen and the patient's chest x-ray from today is showing cardiomegaly and addition to increased pulmonary vessel markings consistent with fluid overload. The findings are essentially the same as compared to yesterday. In terms of his her oxygenation, the patient is currently on O2 at 4 L with a pulse ox of 95%. She is using the BiPAP overnight at a pressure of 16/5 cm of water with an FiO2 of 50%. She is arousable. She is awake. She is communicating. No other significant events overnight. I kept the patient on a combination of bronchodilators and steroids as the patient was quite bronchospastic and wheezy on yesterday's evaluation. 09/25 2021, the patient remains in the intensive care unit. She is a selective overflow. She is comfortable. She is nothing by mouth. She underwent a bowel prep yesterday and today the patient is going to undergo an EGD and colonoscopy as part of a further workup for her ongoing episodes of GI bleeding. At the same time, the patient is being cheered for an acute hypoxic/hypercapnic respiratory failure. She remains on Lasix 40 mg every 12 hours and Diamox to 50 mg by mouth twice a day. She is feeling better. Pulse ox is up to 97% on 4 L of oxygen by nasal cannula and this can be easily weaned off. Otherwise, no signs of any significant fluid overload. Her bronchospasm and wheezing has improved compared to yesterday and she is less short of breath. She'll be kept on diuretics for now and I will suggest keeping in for another 24 hours. Labs from today was noted. BUN is a 48 with a creatinine of 1.1 and sodium level is at 141. The hemoglobin remains stable despite episodic GI bleeding and hemoglobin currently is at 12.4. No altered mentation. No overnight events. The patient is also going to undergo the colonoscopy and EGD and following that she can be transferred to a medical floor. 09/26/2021, the patient is being seen for a follow-up. Since yesterday, the patient underwent a EGD and a colonoscopy. I had a discussion with the surgeon and the patient has a fairly large duodenal ulcer 2 with stigmata of recent bleeding along with gastritis and esophagitis and diverticulosis. Of significance is a visible vessel in the base of the ulcer and this is considered to be a high-risk for bleeding again. In any rate, the patient has not shown any signs of bleeding overnight. She is resting comfortably in bed. She is on clear liquid diet for now. Hemoglobin currently is at 10.7. Based on my discussion with the general surgeon and gastroenterology, and based on the review of the endoscopic findings, this is considered to be a high risk of rebleeding and the patient is being considered to be transferred to [facility] for further intervention possibly angina ablation of this fairly large duodenal ulcer. She is hemodynamically stable for now. She remains on diuretics and she is on Lasix 40 mg IV every 12 hours and she is also receiving Diamox. The blood work from today shows a white cell count of 9.3. Sodium is at 141 with a BUN of 62 and a creatinine of 1.3. Serum bicarbs at 35. Overall fluid balance is in the order of -1.6 L and -2.8 L for today. Oxygenation has improved and the patient is currently on 4 L of oxygen by nasal cannula with a pulse ox of 97%. The chest x-ray from today is showing improvement in the volume status. The right hemidiaphragm is still elevated. There is improved aeration in the upper lobes bilaterally. Lung volumes are essentially small for now. She is resting comfortably in bed. She has no specific complaints. 80 09/27/2021, I'm seeing the patient for a follow-up. She is comfortable in a chair and she has no specific complaints. She is currently on oxygen at 7 L per minute nasal cannula. She is recovering from acute hypoxic respiratory failure and volume overload along with a component of COPD exacerbation. She remains on bronchodilators patient remains on a prednisone burst taper. In terms of diuretics, the patient is on Lasix 40 mg by mouth daily. The patient is a negative fluid balance for now. At the same time, the patient shows no signs of any GI bleeding. The patient's is on clear liquid diet at this point in time. Hemoglobin is at 7.2, another drop by a gram without evidence of bleeding. No bloody bowel movements at this point in time. As mentioned, the patient has a large duodenal ulcer with a visible vessel and there was a concern of recurrent bleeding and the cyber threat analyst and the surgeons have made recommendations to transfer this patient to a tertiary care center for evaluation of the skin duodenal ulcer. Otherwise, the patient is awake and alert. He is following commands and answering questions. No other issues for now. Arrangements are being made for this transfer. 09/28/2021, the patient is stable on 4 L of oxygen by nasal cannula. No bleeding. Hemoglobin has been fluctuating and the patient had a 7.2 hemoglobin yesterday morning, subsequent level came back at 8.2 and this morning is at 7.3. Nevertheless, there is no evidence of any acute bleeding at this point in time. The patient is in a negative fluid balance that she has diuresed very well over the past several days and oxidation is also improved. This morning, she is on 4 L of oxygen by nasal cannula. This is a electrodes are all stable. The bicarb is at 32 with a sodium level of 136 antibiotics 41 with a creatinine of 1.09. The ultimate plan is to transfer this patient to a tertiary care center because of his complicated was in the levels. Currently she is taking a full liquid diet for now. Hemodynamically stable. No nausea. No vomiting. No abdominal pain. No altered mentation. No anticoagulation for now. She remains on IV Protonix. IV fluids of at KVO and she is on 4 L which could be further weaned down knowing that her pulse ox is around 95%. 09/29 2021, the patient got transferred back to the intensive care unit. She was in ICU and I transferred her bowels yesterday and she had to come back because of a low hemoglobin and softer blood pressure. Hemoglobin this morning was found to be adequate 6.5 and the patient is currently receiving 1 unit RBC and she will be seeing a total of 2 units. Despite the drop in hemoglobin, we have not encountered or witnessed any GI bleeding. No abdominal pain or distention. No bright red blood per rectum. No melanotic stools. No other active issues for now. The patient is calm and comfortable and the patient is currently on oxygen at 4 L. Her medications were reviewed. The patient remains on oral Lasix. The patient is also on metoprolol 25 mg by mouth daily and addition to amiodarone 200 mg by mouth 3 times a day regarding chronic atrial fibrillation. Current rhythm is sinus and she is on no anticoagulants at this point in time. As mentioned earlier, she has a large duodenal ulcer with visible vessel in the base with high concerns of rebleeding in the future. Nevertheless, despite the drop in hemoglobin, we have not encountered any ongoing GI bleed for now. In terms of his COPD exacerbation, the patient is is on bronchodilators and the patient is also complaining of current course of prednisone burst taper. She has been diuresed adequately during her earlier ICU stay. Objective - Vital Signs Vital signs: Vital Signs Temp 97.5 F L 09/29/21 11:43 Pulse 59 L 09/29/21 11:43 Resp 16 09/29/21 11:43 BP 113/62 09/29/21 11:43 Pulse Ox 91 L 09/29/21 11:43 FiO2 40 09/23/21 21:03 Intake & Output 09/28/21 09/29/21 09/29/21 18:59 06:59 18:59 Intake Total 1180 Output Total 550 Balance 630 Weight 105 kg Intake: Oral 1180 Output: Urine 550 Other: Voiding Method Bedside Commode Bedside Commode # Voids 1 6 # Bowel Movements 1 2 - Exam Oriented 3, no acute distress. No conversational dyspnea, or use of accessory muscles. The patient is currently on 4 L of nasal cannula Head exam was generally normal. There was no scleral icterus or corneal arcus. M ucous membranes were moist. HEENT examination is grossly unremarkable. Neck supple. Full range of motion. No adenopathy thyromegaly or neck vein distention. Cardiovascular examination reveals regular rhythm rate. S1-S2 normal. No S3 or S4. No discernible murmur noted. Heart sounds are distant. Lungs reveal diffuse rhonchi and crackles. Breath sounds equal. She is not taking deep breaths. No wheezes. The patient continues to have crackles at lung bases bilaterally Abdomen is obese, without bowel sounds. No tenderness. Extremities reveal lower extremity edema, 1+. No cyanosis or clubbing. Skin reveals chronic venous stasis changes to the lower extremities. Neurologic examination is brief but nonfocal. - Labs CBC & Chem 7: 09/29/21 06:52 09/28/21 06:33 Labs: Abnormal Lab Results - Last 24 Hours (Table) 09/27/21 09/29/21 09/29/21 Range/Units 09:36 06:52 10:39 RBC 2.31 L (3.80-5.40) m/uL Hgb 6.5 L* (11.4-16.0) gm/dL Hct 22.9 L (34.0-46.0) % MCHC 28.6 L (31.0-37.0) g/dL RDW 16.2 H (11.5-15.5) % POC Glucose (mg/dL) 102 H (75-99) mg/dL Crossmatch See Detail Assessment and Plan Plan: Acute on chronic anemia without any clinical evidence of GI bleed. The patient will be receiving a packed RBC transfusion with a hemoglobin of 6.5. The patient will be also monitored in the intensive care unit for now. Acute hypoxic respiratory failure, currently on oxygen at 4 L of oxygen by nasal cannula. The patient is also utilizing BiPAP overnight at a pressure of 16/5 cm of water. The patient oxygenation was improving She has an incentive spirometer. Repeat the chest x-ray today. Monitor the hemoglobin. She is on a prednisone burst taper along with po diuresis. Acute on chronic hypoxic and hypercapnic respiratory failure, most recent blood gases showed improvement and acid base status Possible history of sleep apnea syndrome and/or Pickwickian syndrome. The patient is currently using BiPAP at a pressure of 16/5 cm of water and FiO2 of 50% overnight. COPD exacerbation , improving Severe pulmonary hypertension with a PA pressure of around at least 69 mmHg Right hemidiaphragmatic elevation, possible paralysis Duodenal ulcer 2 with stigmata of recent bleed and the visible vessel within the ulcer with high risk of rebleeding. The patient is being considered for transfer to [facility]. The patient had recent GI bleed and she had blood blood per rectum. Previous history of insertion and removal tracheostomy tube and a PEG tube as part of her treatment of sinus cancer Shortness of breath, likely related to underlying CHF. History of hypertension. Chronic hypercapnic respiratory failure. Elevated troponin, rule out myocardial ischemia. 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 History of depression. Prior history of tobacco use. Polycythemia, likely secondary to chronic hypoxemic respiratory failure. Her GI bleed, the patient was having bright red blood per rectum, hemoglobin progressively dropping in hemoglobin today is at 7.3 Plan: Total of 2 units of packed RBC will be given to the patient today and the patient was given a dose of Lasix in between Wean down the FiO2 currently on 4 L she should be able to wean down further prednisone burst taper IV Protonix Awaiting transfer to [facility] regarding her complicated duodenal ulcer. No evidence of any GI bleeding. The patient is stable. Continue clear liquid diet and the patient can be transferred out of the intensive care unit We'll continue to follow
--- NOTE | 2021-09-29 11:51 | P.PN ---
Progress Note - Text Progress Note Date: 09/29/21 An episode of hypotension this morning. Her he will was noted to be 6.5. She denies any active bleeding. She was transferred back to the ICU for blood transfusion and observation. On exam vital signs are stable. Abdomen soft. Patient will receive 2 units of packed red cells. She is still awaiting transfer to [facility] for interventional radiology.
--- NOTE | 2021-09-29 15:08 | P.PN ---
Subjective Progress Note Date: 09/29/21 Principal diagnosis: Acute GI bleed. duodenal ulcer s/p EGD Acute on chronic hypoxic and hypercapnic respiratory failure COPD exacerbation Severe pulmonary hypertension [address] Len Tran. 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 Has had about 19 surgeries last one being about 3 years ago. 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 Patient had a MRI in March 2020 that did not show any recurrence. Patient had some shortness of breath on and off for about a month. More so in the last 2 days. Congested cough. No obvious fever and chills. Tired. Patient dozes off very easily. Requiring BiPAP in the ER. Patient's daughter the bedside to give most of the history. Patient rather tired and lethargic. 09/27/2021 Patient remains comfortable and she has no specific complaints. She is currently on oxygen at 7 L per minute nasal cannula. She remains on bronchodilators patient remains on a prednisone burst taper; Lasix 40 mg by mouth daily. The patient is a negative fluid balance for now. At the same time, the patient shows no signs of any GI bleeding. The patient's is on clear liquid diet at this point in time. Hemoglobin is at 7.2, another drop by a gram without evidence of bleeding. No bloody bowel movements at this point in time. --- patient has a large duodenal ulcer with a visible vessel and there was a concern of recurrent bleeding and the product/device technologist and the surgeons have made recommendations to transfer this patient to a tertiary care center for evaluation of the skin duodenal ulcer. Otherwise, the patient is awake and alert. He is following commands and answering questions. No other issues for now. Arrangements are being made for this transfer. 09/28/2021 Patient is seen and evaluated sitting up in bedside chair in ICU; patient's daughter is at bedside; patient awaits transfer to [facility] for hig her level of care for complicated duodenal ulcer with GI and possible interventional radiology input Patient is status post EGD on 09/25/2021 which revealed duodenal ulcers 2 with stigmata of recent bleeding; per GI recommendations patient will need to have EGD repeated with possible clips versus interventional radiology for embolization Patient is currently stable and remains on O2 at 4 L per nasal cannula blood work reveals hemoglobin 7.0 which is a drop from 8.2 earlier in the morning; patient continues to have no evidence of any acute bleeding --- Patient has been placed on a clear liquid diet and tolerating well; remains on Protonix 40 mg IV daily -- Patient has been deemed stable to transfer to [facility] telemetry till bed opening at [facility] patient needs to be transferred for higher level of care 09/29/2021 Today patient was in the MedSurg unit. Hemoglobin again dropped down to 6.5 today. Denied any hematemesis or melena of blood in the stool. Otherwise patient is awake alert and oriented. Requiring oxygen at 4 L via nasal cannula. Patient is being continued on prednisone 30 mg daily and duo nebs. Patient does have chronic atrial fibrillation. Anticoagulation on hold. Current with amiodarone and metoprolol. Cardiology and pulmonary is on board. Patient is being transferred to MICU for close monitoring. Discussed with [facility] transfer team who is willing to accept the patient to medical intensive care unit. Laboratory test showed WBC 9.8 hemoglobin 6.5 platelets 208 Current medications reviewed. Objective - Vital Signs Vital signs: Vital Signs Temp 98.1 F 09/29/21 12:00 Pulse 62 09/29/21 12:00 Resp 12 09/29/21 12:00 BP 104/49 09/29/21 12:00 Pulse Ox 94 L 09/29/21 12:00 FiO2 40 09/23/21 21:03 Intake & Output 09/28/21 09/29/21 09/29/21 18:59 06:59 18:59 Intake Total 1180 0 Output Total 550 Balance 630 0 Weight 105 kg Intake: Oral 1180 Blood Product 0 Rc As-1 Unit 0 [id number] Output: Urine 550 Other: Voiding Method Bedside Commode Bedside Commode # Voids 1 6 # Bowel Movements 1 2 - Exam - Exam GENERAL: , Up in a chair awake, some shortness of breath EYES: Left eye absent HEENT: External appearance of nose and ears normal, some facial asymmetry NECK: JVD not raised; masses not palpable. HEART: First and second heart sounds are normal; some edema present LUNGS: Rate increased, Diminished breath sounds ABDOMEN: Soft, nontender, liver spleen not palpable, no masses palpable. PSYCH: Answering questions appropriately NEUROLOGICAL: Cranial nerves grossly intact; no facial asymmetry - Labs CBC & Chem 7: 09/29/21 06:52 09/28/21 06:33 Labs: Abnormal Lab Results - Last 24 Hours (Table) 09/27/21 09/29/21 09/29/21 Range/Units 09:36 06:52 10:39 RBC 2.31 L (3.80-5.40) m/uL Hgb 6.5 L* (11.4-16.0) gm/dL Hct 22.9 L (34.0-46.0) % MCHC 28.6 L (31.0-37.0) g/dL RDW 16.2 H (11.5-15.5) % POC Glucose (mg/dL) 102 H (75-99) mg/dL Crossmatch See Detail Assessment and Plan Assessment: 1. Acute blood loss anemia from duodenal ulcer bleed: s/p EGD Gradually worsening Admission hemoglobin 14.4. Down to 8.3--6.4 Patient is also hypotensive. 1 unit of PRBC transfusion today. Patient will be transferred to MICU for close monitoring. Discussed with the transfer team at [facility] and is awaiting for bed allotment at this time. 1. Probable pneumonia suspected gram-negative organism. : Improved Ceftriaxone 1 g every 12-discontinued . Procalcitonin 0.12. 2. Acute hypoxic and hypercapnic respiratory failure secondary to pneumonia and fluid overload: Improving BiPAP at night. 4 L nasal cannula 3. Acute COPD exacerbation and a previous smoker: Better IV Solu-Medrol 60 mg every 8-discontinued. on prednisone 30mg daily. Bronchodilators 4. Acute encephalopathy: improved Follow clinically 5. Pulmonary edema IV Lasix now by mouth. Seen by cardiology 6. Hypernatremia from free water deficit: Better 8. Severe pulmonary hypertension Possible VQ scan when patient more stable. 9. Essential hypertension Toprol-XL 25 mg a day 10. Duodenal ulcer with stigmata of acute bleeding including a blood clot, with gastritis/ Fungal esophagitis PPI Protonix 40 mg twice a day Diflucan CODE STATUS; Full code Time with Patient: Greater than 30
[2021-09-29] MEDS: ESCITALOPRAM 20 MG TAB PO SCH (22:19)
[2021-09-30 06:42] LABS: Anisocytosis Slight; Basophils % (A) 0 %; Eosinophils # (A) 0.2 k/uL (0-0.7); Eosinophils % (A) 2 %; HCT 31.1 % (34.0-46.0); Hypochromasia Moderate; Lymphocytes # (A) 1.2 k/uL (1.0-4.8); Lymphocytes % (A) 14 %; MCH 28.7 pg (25.0-35.0); MCHC 30.2 g/dL (31.0-37.0); Mean Platelet Volume 8.9; Monocytes # (A) 0.5 k/uL (0-1.0); Monocytes % (A) 6 %; Neutrophils # (A) 6.9 k/uL (1.3-7.7); Neutrophils % (A) 77 %; Platelet Count 203 k/uL (150-450); Poikilocytosis Moderate; RBC 3.27 m/uL (3.80-5.40); RDW 16.8 % (11.5-15.5)
[2021-09-30 06:45] LABS: HGB 9.4 gm/dL (11.4-16.0)
[2021-09-30 07:01] LABS: Calcium 7.9 mg/dL (8.4-10.2); Potassium 3.8 mmol/L (3.5-5.1)
[2021-09-30] MEDS: guaiFENesin 600 MG TABLET.ER PO SCH ×2 (08:26→21:14)
[2021-09-30] MEDS: FLUCONAZOLE 100 MG TAB PO SCH (08:26)
[2021-09-30] MEDS: predniSONE 10 MG TAB PO SCH (08:26)
[2021-09-30] MEDS: PANTOPRAZOLE 40 MG/10 ML VIAL IVP SCH ×2 (08:26→21:14)
[2021-09-30] MEDS: CHOLECALCIFEROL 25 MCG (1000 IU) TABLET PO SCH (08:29)
[2021-09-30] MEDS: BUDESONIDE 1 MG/2 ML NEBU INHALATION SCH ×2 (08:53→20:20)
[2021-09-30] MEDS: IPRATROPIUM-ALBUTEROL 3 ML NEB INHALATION SCH ×4 (08:53→20:20)
[2021-09-30] MEDS: FORMOTEROL FUMARATE 20 MCG/2 ML NEBU INHALATION SCH ×2 (08:53→20:20)
[2021-09-30 12:12] VITALS: BMI 38.7
[2021-09-30] MEDS: AMIODARONE 200 MG TAB PO SCH ×3 (12:12→21:14)
[2021-09-30] MEDS: METOPROLOL SUCCINATE (ER) 25 MG TAB.ER.24H PO SCH (12:12)
[2021-09-30] MEDS: FUROSEMIDE 40 MG TAB PO SCH (12:12)
--- NOTE | 2021-09-30 15:15 | P.PN ---
Subjective Progress Note Date: 09/30/21 Principal diagnosis: Acute GI bleeding 09/29 2021, the patient got transferred back to the intensive care unit. She was in ICU and I transferred her bowels yesterday and she had to come back because of a low hemoglobin and softer blood pressure. Hemoglobin this morning was found to be adequate 6.5 and the patient is currently receiving 1 unit RBC and she will be seeing a total of 2 units. Despite the drop in hemoglobin, we have not encountered or witnessed any GI bleeding. No abdominal pain or distention. No bright red blood per rectum. No melanotic stools. No other active issues for now. The patient is calm and comfortable and the patient is currently on oxygen at 4 L. Her medications were reviewed. The patient remains on oral Lasix. The patient is also on metoprolol 25 mg by mouth daily and addition to amiodarone 200 mg by mouth 3 times a day regarding chronic atrial fibrillation. Current rhythm is sinus and she is on no anticoagulants at this point in time. As mentioned earlier, she has a large duodenal ulcer with visible vessel in the base with high concerns of rebleeding in the future. Nevertheless, despite the drop in hemoglobin, we have not encountered any ongoing GI bleed for now. In terms of his COPD exacerbation, the patient is is on bronchodilators and the patient is also complaining of current course of prednisone burst taper. She has been diuresed adequately during her earlier ICU stay. Reevaluated today on 09/30/21, patient is sitting at the end of the bed, not in any distress, daughter seems to be at bedside. Patient is waiting for transfer to [facility] sometime today. In the meantime she is hemodynamically stable, and not in any distress, remains on 2 L nasal cannula, and O2 sats is 95% hemoglobin today is 9.4, it was 6.5 yesterday. Patient received a total of 2 units of packed RBCs, and she had an order for 3 years of packed RBCs. Objective - Vital Signs Vital signs: Vital Signs Temp 97.5 F L 09/30/21 11:15 Pulse 67 09/30/21 12:38 Resp 20 09/30/21 11:15 BP 101/57 09/30/21 11:15 Pulse Ox 95 09/30/21 11:15 FiO2 40 09/23/21 21:03 Intake & Output 09/29/21 09/30/21 09/30/21 18:59 06:59 18:59 Intake Total 930 120 Balance 930 120 Weight 105.5 kg 105.5 kg Intake: Oral 120 Blood Product 930 Unit 0 Rc As-1 Unit 310 [id number] Other: Voiding Method Bedside Commode Bedside Commode Bedside Commode # Voids 2 1 # Bowel Movements 1 - Exam Physical Exam: Revealed a 76-year-old female in no distress. Head: Atraumatic, normocephalic. HEENT:[Neck is supple.] [No neck masses.] [No thyromegaly.] [No JVD.] Chest: [Clear throughout, no crackles, no rhonchi, no wheezes.] Cardiac Exam: [Normal S1 and S2, no S3 gallop, no murmur.] Abdomen: [Soft, nontender, no megaly, no rebound, no guarding, normal bowel sounds.] Extremities: [No clubbing, no edema, no cyanosis.] Neurological Exam: [No focal neurologic deficit.] Psychiatric: Normal mood affect and normal mental status examination - Labs CBC & Chem 7: 09/30/21 06:00 09/30/21 06:00 Labs: Abnormal Lab Results - Last 24 Hours (Table) 09/27/21 09/30/21 09/30/21 Range/Units 09:36 06:00 06:00 RBC 3.27 L (3.80-5.40) m/uL Hgb 9.4 L D (11.4-16.0) gm/dL Hct 31.1 L (34.0-46.0) % MCHC 30.2 L (31.0-37.0) g/dL RDW 16.8 H (11.5-15.5) % Carbon Dioxide 33 H (22-30) mmol/L BUN 23 H (7-17) mg/dL Calcium 7.9 L (8.4-10.2) mg/dL Crossmatch See Detail Assessment and Plan Assessment: Acute on chronic anemia without any clinical evidence of GI bleed. Awaiting transfer to [facility] today Acute hypoxic respiratory failure, multifactorial Acute on chronic hypoxic and hypercapnic respiratory failure, most recent blood gases showed improvement and acid base status Possible history of sleep apnea syndrome and/or Pickwickian syndrome. COPD exacerbation , improving Severe pulmonary hypertension with a PA pressure of around at least 69 mmHg Right hemidiaphragmatic elevation, possible paralysis Duodenal ulcer 2 with stigmata of recent bleed and the visible vessel within the ulcer with high risk of rebleeding. The patient is being considered for transfer to [facility]. The patient had recent GI bleed and she had blood blood per rectum. Recommendation: Continue present supportive care measures Patient to be transferred today to [facility]. We will see the patient on when necessary basis. Time with Patient: Less than 30
--- NOTE | 2021-09-30 16:07 | P.PN ---
Subjective Progress Note Date: 09/30/21 Principal diagnosis: GI bleeding Patient doing well today. Tolerating diet. Remains on full liquids. Hemoglobin did drift downwards and required 2 units of blood. Patient had melanotic stools last night. Transfer to [facility] has been placed on hold. GI has seen the patient. No plans for repeat EGD at this time unless rebleeding suspected. Patient denies pain. Objective - Vital Signs Vital signs: Vital Signs Temp 97.5 F L 09/30/21 11:15 Pulse 62 09/30/21 15:53 Resp 20 09/30/21 11:15 BP 101/57 09/30/21 11:15 Pulse Ox 95 09/30/21 11:15 FiO2 40 09/23/21 21:03 Intake & Output 09/29/21 09/30/21 09/30/21 18:59 06:59 18:59 Intake Total 930 120 Balance 930 120 Weight 105.5 kg 105.5 kg Intake: Oral 120 Blood Product 930 Unit 0 Rc As-1 Unit 310 [id number] Other: Voiding Method Bedside Commode Bedside Commode Bedside Commode # Voids 2 1 # Bowel Movements 1 - Exam Abdomen: Soft, nontender, nondistended - Labs CBC & Chem 7: 09/30/21 06:00 09/30/21 06:00 Labs: Abnormal Lab Results - Last 24 Hours (Table) 09/27/21 09/30/21 09/30/21 Range/Units 09:36 06:00 06:00 RBC 3.27 L (3.80-5.40) m/uL Hgb 9.4 L D (11.4-16.0) gm/dL Hct 31.1 L (34.0-46.0) % MCHC 30.2 L (31.0-37.0) g/dL RDW 16.8 H (11.5-15.5) % Carbon Dioxide 33 H (22-30) mmol/L BUN 23 H (7-17) mg/dL Calcium 7.9 L (8.4-10.2) mg/dL Crossmatch See Detail Assessment and Plan Plan: 76-year-old female with duodenal ulcer and recent bleeding. Repeat labs tomorrow. Clinical scenario reviewed in detail with the patient and her daughter. Certainly if rebleeding suspected recommend repeat EGD by GI either here or at tertiary care center. We'll follow. Continue antiacids. Advance diet tomorrow if hemoglobin stable.
--- NOTE | 2021-09-30 16:15 | P.CONS ---
History of Present Illness - Reason for Consult Consult date: 09/30/21 Bleeding ulcer Requesting physician: Sebastian Salmon - Chief Complaint Shortness of breath, weakness - History of Present Illness This is a pleasant 76-year-old female with a past medical history including hypertension and sinus cavity cancer who presented to the emergency department with shortness of breath and weakness. She was initially admitted into the ICU because of hypoxia and dyspnea. During her stay in the ICU she started having large bloody stools and general surgery was consulted at that time as there is no gastroenterology in house. Her last colonoscopy was 20-30 years ago. Gen. surgery continued to follow and she had a drop in her hemoglobin. She underwent an EGD with Dr. Bermeo on 09/25/2021 with findings of duodenal ulcer 2 with high stigmata of recent bleeding, gastritis and fungal esophagitis colonoscopy showed diverticulosis however was a poor prep. At that time patient had been recommended to be transferred to a tertiary center for advanced GI and angioembolization by interventional radiology. Patient has bee awaiting a bed at [facility]. She denies any further bleeding. Hemoglobin was 6.5 yesterday she is status post 2 units of PRBC transfusion. With a repeat hemoglobin today of 9.4. BUN improving this 23 down from 41. Review of Systems REVIEW OF SYSTEMS: CARDIOPULMONARY: No chest pain or shortness of breath. Gastrointestinal: No abdominal pain. No nausea or vomiting. No hematemesis, coffee-ground emesis. Patient was having maroon and dark colored stools, now improved. GENITOURINARY: No dysuria or hematuria. MUSCULOSKELETAL: Reports normal range of motion., Joint pain. SKIN: No rashes. No jaundice. ENDOCRINE: No chills, fevers. No excessive weight gain or loss. No polydipsia or polyuria. PSYCHIATRIC: Unremarkable. NEUROLOGY: No change in mental status. Denies dizziness, headache. ENT: Vision unremarkable. CONSTITUTIONAL: No recent weight loss. No fever, chills, night sweats. Past Medical History Past Medical History: Cancer, Hypertension, Osteoarthritis (OA) Additional Past Medical History / Comment(s): SOB with activity,sinus cavity cancer, skin cancer History of Any Multi-Drug Resistant Organisms: None Reported Past Surgical History: Section, Cholecystectomy Additional Past Surgical History / Comment(s): eyelid surgery, D&C on 07/30/20,3 emergency trachea proceduresx3,sinus cavity CA removal x17 Past Anesthesia/Blood Transfusion Reactions: Previous Problems w/ Anesthesia Additional Past Anesthesia/Blood Transfusion Reaction / Comm: Difficult int ubation-states "had emergency trachea with post intubation x3-wind pipe closes",has no letter from anesthesia Past Psychological History: Anxiety, Depression Smoking Status: Former smoker Past Alcohol Use History: None Reported Additional Past Alcohol Use History / Comment(s): quit smoking 2001 approx, smoked approx 40 yrs 1ppd Past Drug Use History: None Reported - Past Family History Mother Family Medical History: Cancer Daughter(s) Family Medical History: Cancer Additional Family Medical History / Comment(s): 2 dtrs had breast CA Medications and Allergies Home Medications Medication Instructions Recorded Confirmed Type Aspirin EC [Ecotrin Low Dose] 81 mg PO DAILY 08/02/20 09/19/21 History Cholecalciferol [Vitamin D3 (25 50 mcg PO DAILY 08/02/20 09/19/21 History Mcg = 1000 Iu)] Escitalopram [Lexapro] 20 mg PO HS 08/02/20 09/19/21 History Selenium 200 mcg PO HS 08/02/20 09/19/21 History Berderine Supplement 1,000 mg PO DAILY 07/16/21 09/19/21 History Metoprolol Succinate (ER) [Toprol 25 mg PO DAILY 07/16/21 09/19/21 History Xl] Cranberry(Unknown) 1 tab PO DAILY 09/19/21 09/19/21 History Allergies Allergy/AdvReac Type Severity Reaction Status Date / Time oxycodone AdvReac Nausea & Verified 09/19/21 19:57 Vomiting Physical Exam Vitals: Vital Signs Temp Pulse Pulse Pulse Resp BP BP 09/30/21 12:38 67 09/30/21 12:28 65 09/30/21 11:15 97.5 F L 54 L 20 09/30/21 09:22 54 L 09/30/21 09:12 56 L 09/30/21 09:11 56 L 09/30/21 09:01 53 L 09/30/21 08:54 09/30/21 08:21 58 L 09/30/21 08:19 97.9 F 56 L 18 88/48 09/30/21 04:20 98 F 56 L 17 09/30/21 02:00 58 L 09/30/21 00:00 98.2 F 60 16 09/29/21 20:00 98.5 F 58 L 57 L 16 09/29/21 17:58 98.7 F 60 24 116/52 09/29/21 17:48 98.4 F 62 19 112/50 09/29/21 16:00 98.7 F 56 L 16 09/29/21 15:23 54 L 09/29/21 15:16 98.7 F 09/29/21 15:15 57 L 21 113/56 09/29/21 14:00 98.4 F 60 16 BP BP Pulse Ox 09/30/21 12:38 09/30/21 12:28 09/30/21 11:15 101/57 95 09/30/21 09:22 09/30/21 09:12 09/30/21 09:11 09/30/21 09:01 09/30/21 08:54 97 09/30/21 08:21 09/30/21 08:19 83/53 89/49 96 09/30/21 04:20 145/66 92 L 09/30/21 02:00 09/30/21 00:00 118/58 96 09/29/21 20:00 126/49 96 09/29/21 17:58 96 09/29/21 17:48 96 09/29/21 16:00 114/70 95 09/29/21 15:23 97 09/29/21 15:16 09/29/21 15:15 97 09/29/21 14:00 114/59 96 Intake and Output 09/29/21 09/30/21 09/30/21 22:59 06:59 14:59 Intake Total 930 120 Balance 930 120 Intake: Oral 120 Blood Product 930 Unit 0 Rc As-1 Unit 310 [id number] Other: Voiding Method Bedside Commode Bedside Commode Bedside Commode # Voids 2 1 # Bowel Movements 1 Weight 105.5 kg 105.5 kg General appearance: The patient is alert, oriented, appears in no acute distress. HET: Head is normocephalic and atraumatic. 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 Conjunctiva pink. Sclera anicteric. Neck: Supple without lymphadenopathy. Trachea midline. Heart: S1 S2. Regular rate and rhythm. Lungs: Clear to auscultation. Abdomen: Soft, nontender, nondistended with bowel sounds. No guarding or rigidity. Skin: No rashes. No jaundice. Extremities: Normal skin color and turgor. No pedal edema. Neurological: No focal deficits. Alert and oriented x3. Results CBC & Chem 7: 09/30/21 06:00 09/30/21 06:00 Labs: Abnormal Lab Results - Last 24 Hours (Table) 09/27/21 09/30/21 09/30/21 Range/Units 09:36 06:00 06:00 RBC 3.27 L (3.80-5.40) m/uL Hgb 9.4 L D (11.4-16.0) gm/dL Hct 31.1 L (34.0-46.0) % MCHC 30.2 L (31.0-37.0) g/dL RDW 16.8 H (11.5-15.5) % Carbon Dioxide 33 H (22-30) mmol/L BUN 23 H (7-17) mg/dL Calcium 7.9 L (8.4-10.2) mg/dL Crossmatch See Detail Assessment and Plan (1) GI bleed Narrative/Plan: 76-year-old who presented to the emergency department with initial complaints of shortness of breath and weakness. She was admitted to the ICU for hypoxia. During that stay she had a large bloody bowel movement. Gen. surgery was consulted. She underwent EGD and colonoscopy. EGD found to duodenal ulcers with high stigmata for bleeding, gastritis and fungal esophagitis. Colonoscopy revealed diverticulosis however poor prep. Patient was recommended for transfer to a tertiary center with advanced GI and interventional radiologist who could undergo angioembolization. Patient is still awaiting transfer however bleeding has subsided and hemoglobin is stable today at 9.2. We'll continue to hold anticoagulation. Patient can be observed and if no further bleeding consider for possible discharge. Bleeding resumes her continues would recommend continue transfer to tertiary center for angioembolization with interventional radiologist. No plans at this time with repeat EGD. Current Visit: Yes Status: Acute Code(s): K92.2 - GASTROINTESTINAL HEMORRHAGE, UNSPECIFIED SNOMED Code(s): 71195567 (2) Duodenal ulcer Current Visit: Yes Status: Acute Code(s): K26.9 - DUODENAL ULCER, UNSP ACUTE OR CHRONIC, W/O HEMOR OR PERF SNOMED Code(s): 40518789 Plan: 1. Continue symptomatic and supportive care 2. Patient may have full liquid diet 3. Daily CBC, transfuse for hemoglobin less than 7 4. Continue to hold any anticoagulation 5. No plan for an endoscopic evaluation 6. We'll continue to evaluate, if no further bleeding may consider possible discharge versus transfer to tertiary center Thank you for this consultation, we will continue to follow. Dr. Cruz Calles I agree with the dictator's note, documented as a scribe by Mago Bernal.
[2021-09-30] MEDS: ACETAMINOPHEN TAB 500 MG TAB PO PRN (16:31)
--- NOTE | 2021-09-30 17:35 | P.PN ---
Progress Note - Text Progress Note Date: 09/30/21 Chief Complaint: Short of breath History of presenting complaint: This is a pleasant [address] Len Tran. 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 Has had about 19 surgeries last one being about 3 years ago. 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 Patient had a MRI in March 2020 that did not show any recurrence. Patient had some shortness of breath on and off for about a month. More so in the last 2 days. Congested cough. No obvious fever and chills. Tired. Patient dozes off very easily. Requiring BiPAP in the ER. Patient's daughter the bedside to give most of the history. Patient rather tired and lethargic. Admitted with pneumonia, acute hypoxic respiratory failure, questionable CHF. BiPAP. IV ceftriaxone. IV Lasix. Bronchodilators. Admitted to ICU September 21: ICU: Patient getting bronchodilators. On 10 L of nasal cannula. IV Lasix 40 mg daily. [place] to be predominant pneumonia. Able to converse. Rober httheo at the bedside. Patient answering questions. Tired. September 22: ICU: On 6 L nasal cannula. On a liquid diet. Placed on IV Lasix by pulmonary. Ceftriaxone discontinued by pulmonary. Patient's sister the bedside. Discussed. September 23: ICU: This morning on 6 L nasal cannula. Unclear liquid diet because of large bloody bowel movement on the night of September 20. Being followed by surgery. Breathing better. On IV Lasix. Off antibiotics. Daughter the bedside. September 24: ICU: Sitting up in a chair. Down to 4 L nasal cannula. He wanted to use incentive spirometry. Unclear liquid diet. For endoscopy tomorrow. Daughter the bedside. September 25: ICU: Patient underwent EGD and colonoscopy by Dr. Shearer. The previous night patient had some fresh blood with bowel preparation. He discovered a duodenal ulcer with a large blood clot. Some evidence of gastritis and fungal esophagitis. Chronic diverticulosis. Fresh blood in the colon. It was felt the patient be better served at the tertiary center. In case patient uses embolization. He discussed this with the patient and family. I spoke to the accepting team in ICU at [address] [place] [address]. Patient was accepted. Patient is placed on PPI September 26: ICU: Patient awaiting transfer to [facility]. On Diflucan for fungal candidiasis. Hemoglobin 8.3 this morning. Blood pressure holding up. Remains on clear liquid diet. September 30: I resumed care of the patient today. Patient this morning was still awaiting [facility]. This and they may have a bed available later today. I did then speak to the housing case manager subsequently spoke to the hospitalist at [facility]. Dr. Kuhn. Then discussed with Dr. Cruz Calles Y consulted earlier today from GI. Patient had a tarry stool this morning. Patient oriented PPI. Dr. Cruz Calles also spoke to Dr. Shearer. This point was decided to raised the patient then in 24 hours. If remains stable possibly could be discharged. If any other clinical evidence of bleeding then patient could be transferred. Patient otherwise appears comfortable. Oral intake fair. This was conveyed to the family. Hemoglobin yesterday was 6.5. Did receive a unit of blood. Active Medications Acetaminophen (Acetaminophen Tab 500 Mg Tab) 500 mg PO Q6HR PRN PRN Reason: Fever and/ or Pain Last Admin: 09/30/21 16:31 Dose: 500 mg Albuterol/Ipratropium (Ipratropium-Albuterol 3 Ml Neb) 3 ml INHALATION RT-QID [facility] Last Admin: 09/30/21 15:42 Dose: 3 ml Albuterol/Ipratropium (Ipratropium-Albuterol 3 Ml Neb) 3 ml INHALATION RT-Q2H PRN PRN Reason: Shortness Of Breath Or Wheezing Amiodarone HCl (Amiodarone 200 Mg Tab) 200 mg PO TID [facility] Last Admin: 09/30/21 16:31 Dose: 200 mg Benzocaine/Menthol (Benzocaine/Menthol Lozeng 1 Each Lozenge) 1 each MUCOUS MEM Q4HR PRN PRN Reason: Cough Last Admin: 09/22/21 23:30 Dose: 1 each Budesonide (Budesonide 1 Mg/2 Ml Nebu) 1 mg INHALATION RT-BID [facility] Last Admin: 09/30/21 08:53 Dose: 1 mg Cholecalciferol (Cholecalciferol 25 Mcg (1000 Iu) Tablet) 50 mcg PO DAILY [facility] Last Admin: 09/30/21 08:29 Dose: 50 mcg Escitalopram Oxalate (Escitalopram 20 Mg Tab) 20 mg PO HS [facility] Last Admin: 09/29/21 22:19 Dose: 20 mg Fluconazole (Fluconazole 100 Mg Tab) 100 mg PO DAILY [facility]; Protocol Last Admin: 09/30/21 08:26 Dose: 100 mg Formoterol Fumarate (Formoterol Fumarate 20 Mcg/2 Ml Nebu) 20 mcg INHALATION RT-BID [facility] Last Admin: 09/30/21 08:53 Dose: 20 mcg Furosemide (Furosemide 40 Mg Tab) 40 mg PO DAILY [facility] Last Admin: 09/30/21 12:12 Dose: Not Given Guaifenesin (Guaifenesin 600 Mg Tablet.Er) 1,200 mg PO Q12HR [facility] Last Admin: 09/30/21 08:26 Dose: 1,200 mg Guaifenesin/Codeine Phosphate (Guaifenesin-Coden 100-10mg/5ml 10 Ml Cup) 10 ml PO Q6HR PRN PRN Reason: Cough Last Admin: 09/23/21 12:27 Dose: 10 ml Metoprolol Succinate (Metoprolol Succinate (Er) 25 Mg Tab.Er.24h) 25 mg PO DAILY [facility] Last Admin: 09/30/21 12:12 Dose: Not Given Miscellaneous Information (Potassium Replacement Protocol 1 Each Misc) 1 each MISCELLANE DAILY PRN; Protocol PRN Reason: Per Protocol Pantoprazole Sodium (Pantoprazole 40 Mg/10 Ml Vial) 40 mg IVP BID [facility] Last Admin: 09/30/21 08:26 Dose: 40 mg Prednisone (Prednisone 20 Mg Tab) 20 mg PO DAILY [facility] Past medical history to include: Hypertension, sinus cavity cancer radiation treatment 1989 at least 19 surgeries last one being in 2 years ago. MRI in March 2020 was negative, depression Social history: Lives alone., Smoked a pack a day for 40 years stopped 20 years ago. No alcohol. Physical examination: VITAL SIGNS: 98.6, 50, 18, 109/58, 95% on 2 L GENERAL: , T planning in bed, awake, comfortable EYES: Left eye absent HEENT: External appearance of nose and ears normal, some facial asymmetry NECK: JVD not raised; masses not palpable. HEART: First and second heart sounds are normal; some edema present LUNGS: Rate increased, Diminished breath sounds ABDOMEN: Soft, nontender, liver spleen not palpable, no masses palpable. PSYCH: Answering questions appropriately NEUROLOGICAL: Cranial nerves grossly intact; no facial asymmetry, power and sensation grossly intact, left eye absent INVESTIGATIONS, reviewed in the clinical context: September 30: Hemoglobin 9.4 September 26: Hemoglobin 8.3 platelets 134 potassium 3.2 BUN 60 creatinine 1.36 September 25: Hemoglobin 8.3 potassium 3.2 creatinine 1.36 September 24: White count 8.3 potassium 3.7 BUN 40 bicarbonate 35 September 23: Obesity 6.9 hemoglobin 13.8 potassium 3.4 creatinine 1.0 September 22: White count 6.3 hemoglobin 13.8 potassium 3.2 BUN 30 creatinine 1.10. Pro-calcitonin 0.12 September 21: White count 7.4 hemoglobin 14 sodium 148 potassium 4.7 creatinine 1.04. BUN 57 white count 38 2-D echocardiogram: EF 60-65%. Moderate concentric LVH. Severe pulmonary hypertension. White count 8.3 hemoglobin 16.7 platelets 203 ABG: PH 7.17, pCO2 88, pO2 57 Potassium 5. 49 creatinine 1.16 Troponin I 0.050 proBNP 5350 Influenza type A, influenza type B, RSV, COVID-19: Not detected EKG tracing personally reviewed by me-normal sinus rhythm. Chest x-ray film personally reviewed by me-pulmonary edema versus infiltrates chest CTA: Large pulmonary arteries. No PE. Coarse infiltrates. Atelectasis. Some elevation of right diaphragm. Assessment and plan -Probable pneumonia suspected gram-negative organism. : Improved Ceftriaxone 1 g every 12-discontinued . Procalcitonin 0.12. -Acute hypoxic and hypercapnic respiratory failure secondary to pneumonia and fluid overload: Improving BiPAP at night.2 L nasal cannula -Possibly sleep apnea syndrome and/or pickwickian syndrome. Using BiPAP at night -Acute COPD exacerbation and a previous smoker: Better IV Solu-Medrol 60 mg every 8-discontinued. Bronchodilators -Acute hypoxic hypercapnic encephalopathy: improved Follow clinically - pulmonary edema . IV Lasix now by mouth. 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 Down to 6.5. Has received a total of 3 units of blood -Severe pulmonary hypertension Possible VQ scan when patient more stable. -Metabolic alkalosis from volume contraction Received Diamox -Essential hypertension Toprol-XL 25 mg a day -Duodenal ulcer with stigmata of acute bleeding including a blood clot, with gastritis PPI Protonix 40 mg twice a day -Fungal esophagitis Diflucan -Depression Lexapro -Full code By mouth Lasix. Decrease prednisone to 20 mg. Bronchodilators. Patient accepted at [facility]. Discussed with Dr. Cruz Calles. Watch another 24 hours. Repeat hemoglobin. Total time spent today about 45 minutes with over 25 minutes of discussion.
[2021-09-30] MEDS: ESCITALOPRAM 20 MG TAB PO SCH (21:14)
[2021-10-01] MEDS: AMIODARONE 200 MG TAB PO SCH (08:17)
[2021-10-01] MEDS: PANTOPRAZOLE 40 MG/10 ML VIAL IVP SCH (08:21)
[2021-10-01] MEDS: FLUCONAZOLE 100 MG TAB PO SCH (08:21)
[2021-10-01] MEDS: guaiFENesin 600 MG TABLET.ER PO SCH (08:21)
[2021-10-01] MEDS: CHOLECALCIFEROL 25 MCG (1000 IU) TABLET PO SCH (08:21)
[2021-10-01 08:29] VITALS: RESP 20
[2021-10-01] MEDS: IPRATROPIUM-ALBUTEROL 3 ML NEB INHALATION SCH ×3 (08:29→15:44)
[2021-10-01] MEDS: FORMOTEROL FUMARATE 20 MCG/2 ML NEBU INHALATION SCH (08:29)
[2021-10-01] MEDS: BUDESONIDE 1 MG/2 ML NEBU INHALATION SCH (08:29)
[2021-10-01] MEDS ORDERED: predniSONE 20 MG TAB PO SCH (09:00)
[2021-10-01 10:46] LABS: Anisocytosis Slight; HGB 9.3 gm/dL (11.4-16.0); Hypochromasia Marked; MCH 29.3 pg (25.0-35.0); MCHC 30.1 g/dL (31.0-37.0); MCV 97.2 fL (80.0-100.0); Macrocytosis Slight; Mean Platelet Volume 9.2; Platelet Count 240 k/uL (150-450); Poikilocytosis Slight; RBC 3.19 m/uL (3.80-5.40); WBC 11.5 k/uL (3.8-10.6)
[2021-10-01 11:05] LABS: Calcium 8.2 mg/dL (8.4-10.2)
[2021-10-01 11:35] VITALS: BP 127/54; TEMP 98.2
--- NOTE | 2021-10-01 12:04 | P.PN ---
Subjective Progress Note Date: 10/01/21 Principal diagnosis: GI bleed, duodenal ulcers This is a pleasant 76-year-old female with a past medical history including hypertension and sinus cavity cancer who presented to the emergency department with shortness of breath and weakness. She was initially admitted into the ICU because of hypoxia and dyspnea. During her stay in the ICU she started having large bloody stools and general surgery was consulted at that time as there is no gastroenterology in house. Her last colonoscopy was 20-30 years ago. Gen. surgery continued to follow and she had a drop in her hemoglobin. She underwent an EGD with Dr. Bermeo on 09/25/2021 with findings of duodenal ulcer 2 with high stigmata of recent bleeding, gastritis and fungal esophagitis colonoscopy showed diverticulosis however was a poor prep. At that time patient had been recommended to be transferred to a tertiary center for advanced GI and angioembolization by interventional radiology. Patient has bee awaiting a bed at [facility]. She had had a drop in her hemoglobin 2 days ago to 6.5 once a maroon colored stool. She was given 2 units of PRBC transfusion with an improvement in her hemoglobin 9.4. She denies any abdominal pain, nausea or vomiting. She states that she had a dark bowel movement yesterday however no maroon colored stool or blood per rectum. Hemoglobin stable at 9.3. Initially she had a low blood pressure this morning but repeat done with a manual came back at 127/54. Objective - Vital Signs Vital signs: Vital Signs Temp 97.6 F 10/01/21 07:50 Pulse 62 10/01/21 08:47 Resp 20 10/01/21 07:50 BP 78/42 10/01/21 08:27 Pulse Ox 91 L 10/01/21 08:31 FiO2 40 09/23/21 21:03 Intake & Output 09/30/21 10/01/21 10/01/21 18:59 06:59 18:59 Intake Total 120 Output Total 225 200 Balance -105 -200 Weight 105.5 kg Intake: Oral 120 Output: Urine 225 200 Other: Voiding Method Bedside Commode Bedside Commode # Voids 1 2 # Bowel Movements 1 - Exam General appearance: The patient is alert, oriented, appears in no acute distress. HET: Head is normocephalic and atraumatic. Conjunctiva pink. Sclera anicteric. Neck: Supple without lymphadenopathy. Abdomen: Soft, nontender, nondistended with bowel sounds. No guarding or rigidity. Extremities: Normal skin color and turgor. No pedal edema Skin: No rashes, no jaundice Neurological: No focal deficits. Alert and oriented x 3. - Labs CBC & Chem 7: 10/01/21 10:13 10/01/21 10:13 Labs: Abnormal Lab Results - Last 24 Hours (Table) 09/27/21 Range/Units 09:36 Crossmatch See Detail Assessment and Plan (1) GI bleed Narrative/Plan: 76-year-old who presented to the emergency department with initial complaints of shortness of breath and weakness. She was admitted to the ICU for hypoxia. During that stay she had a large bloody bowel movement. Gen. surgery was consulted. She underwent EGD and colonoscopy. EGD found to duodenal ulcers with high stigmata for bleeding, gastritis and fungal esophagitis. Colonoscopy revealed diverticulosis however poor prep. Patient was recommended for transfer to a tertiary center with advanced GI and interventional radiologist who could undergo angioembolization. Patient is still awaiting transfer however bleeding has subsided and hemoglobin is stable today at 9.2. We'll continue to hold anticoagulation. Patient can be observed and if no further bleeding consider for possible discharge. Patient has not had any further bleeding. Hemoglobin is stable at 9.3. No plans for EGD or transfer. Patient cleared for discharge. Current Visit: Yes Status: Acute Code(s): K92.2 - GASTROINTESTINAL HEMORRHAGE, UNSPECIFIED SNOMED Code(s): 99663422 (2) Duodenal ulcer Current Visit: Yes Status: Acute Code(s): K26.9 - DUODENAL ULCER, UNSP ACUTE OR CHRONIC, W/O HEMOR OR PERF SNOMED Code(s): 28012919 Plan: 1. Continue symptomatic and supportive care 2. Advance diet as tolerated 3. No plan for an endoscopic evaluation 4. Patient has had no further signs of GI blood loss. Hemoglobin stable. Roger preston is cleared for discharge from gastroenterology. Thank you for this consultation. Dr. Cruz Calles I agree with the dictator's note, documented as a scribe by Mago Bernal.
[2021-10-01 12:09] VITALS: PULSE 62
[2021-10-01] MEDS: METOPROLOL SUCCINATE (ER) 25 MG TAB.ER.24H PO SCH (12:12)
--- NOTE | 2021-10-01 12:24 | P.PN ---
Subjective Progress Note Date: 10/01/21 Principal diagnosis: GI bleeding Patient doing well today. Denies abdominal pain. She did have a bowel movement that was loose and blackish in color. Hemoglobin stable at 9.3. Objective - Vital Signs Vital signs: Vital Signs Temp 98.2 F 10/01/21 11:34 Pulse 62 10/01/21 12:08 Resp 20 10/01/21 11:34 BP 127/54 10/01/21 11:34 Pulse Ox 99 10/01/21 11:34 FiO2 40 09/23/21 21:03 Intake & Output 09/30/21 10/01/21 10/01/21 18:59 06:59 18:59 Intake Total 120 Output Total 225 200 100 Balance -105 -200 -100 Weight 105.5 kg Intake: Oral 120 Output: Urine 225 200 100 Other: Voiding Method Bedside Commode Bedside Commode # Voids 1 2 # Bowel Movements 1 - Exam Abdomen: Soft, nontender, nondistended - Labs CBC & Chem 7: 10/01/21 10:13 10/01/21 10:13 Labs: Abnormal Lab Results - Last 24 Hours (Table) 09/27/21 10/01/21 10/01/21 Range/Units 09:36 10:13 10:13 WBC 11.5 H (3.8-10.6) k/uL RBC 3.19 L (3.80-5.40) m/uL Hgb 9.3 L (11.4-16.0) gm/dL Hct 31.0 L (34.0-46.0) % MCHC 30.1 L (31.0-37.0) g/dL RDW 17.0 H (11.5-15.5) % Carbon Dioxide 34 H (22-30) mmol/L BUN 26 H (7-17) mg/dL Glucose 114 H (74-99) mg/dL Calcium 8.2 L (8.4-10.2) mg/dL Crossmatch See Detail Assessment and Plan (1) Duodenal ulcer Narrative/Plan: 76-year-old female with bleeding duodenal ulcer. Patient still having black stools which does not necessarily indicate active bleeding. Hemoglobin is stable. Plans are underway for discharge today. Patient will return to the ER if melanotic stools persist or she starts having any evidence of bright red blood or maroon-colored stools. She will continue antiacids indefinitely. Current Visit: Yes Status: Acute Code(s): K26.9 - DUODENAL ULCER, UNSP ACUTE OR CHRONIC, W/O HEMOR OR PERF SNOMED Code(s): 63431278
--- NOTE | 2021-10-01 16:59 | P.DS ---
Providers Date of admission: 09/19/21 22:32 Expected date of discharge: 10/01/21 Attending physician: Sebastian Salmon Consults: 09/19/21 22:32 Consult Physician Routine Consulting Provider: Leora Palmer Consult Reason/Comments: heart failure Do you want consulting provider notified?: Yes Consult Physician Routine Consulting Provider: Len Nunez Consult Reason/Comments: hypoxic respiratory failure Do you want consulting provider notified?: Already Contacted 09/20/21 21:49 Consult Physician Routine Consulting Provider: Mustapha Bermeo Consult Reason/Comments: bloody bm Do you want consulting provider notified?: Yes 09/30/21 11:22 Consult Physician Routine Consulting Provider: Alexa Calles Consult Reason/Comments: bleeding ulcer Do you want consulting provider notified?: Yes Primary care physician: [facility] Course: Chief Complaint: Short of breath History of presenting complaint: This is a pleasant [address] Len Tran. 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 Has had about 19 surgeries last one being about 3 years ago. 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 Patient had a MRI in March 2020 that did not show any recurrence. Patient had some shortness of breath on and off for about a month. More so in the last 2 days. Congested cough. No obvious fever and chills. Tired. Patient dozes off very easily. Requiring BiPAP in the ER. Patient's daughter the bedside to give most of the history. Patient rather tired and lethargic. Admitted with pneumonia, acute hypoxic respiratory failure, questionable CHF. BiPAP. IV ceftriaxone. IV Lasix. Bronchodilators. Admitted to ICU September 21: ICU: Patient getting bronchodilators. On 10 L of nasal cannula. IV Lasix 40 mg daily. [place] to be predominant pneumonia. Able to converse. Daughter at the bedside. Patient answering questions. Tired. September 22: ICU: On 6 L nasal cannula. On a liquid diet. Placed on IV Lasix by pulmonary. Ceftriaxone discontinued by pulmonary. Patient's sister the bedside. Discussed. September 23: ICU: This morning on 6 L nasal cannula. Unclear liquid diet because of large bloody bowel movement on the night of September 20. Being followed by surgery. Breathing better. On IV Lasix. Off antibiotics. Daughter the bedside. September 24: ICU: Sitting up in a chair. Down to 4 L nasal cannula. He wanted to use incentive spirometry. Unclear liquid diet. For endoscopy tomorrow. Daughter the bedside. September 25: ICU: Patient underwent EGD and colonoscopy by Dr. Shearer. The previous night patient had some fresh blood with bowel preparation. He discovered a duodenal ulcer with a large blood clot. Some evidence of gastritis and fungal esophagitis. Chronic diverticulosis. Fresh blood in the colon. It was felt the patient be better served at the tertiary center. In case patient uses embolization. He discussed this with the patient and family. I spoke to the accepting team in ICU at [address] [place] [address]. Patient was accepted. Patient is placed on PPI September 26: ICU: Patient awaiting transfer to [facility]. On Diflucan for fungal candidiasis. Hemoglobin 8.3 this morning. Blood pressure holding up. Remains on clear liquid diet. September 30: I resumed care of the patient today. Patient this morning was still awaiting abetted [facility]. This and they may have a bed available later today. I did then speak to the lead case manager subsequently spoke to the hospitalist at [facility]. Dr. Kuhn. Then discussed with Dr. Cruz Calles Y consulted earlier today from GI. Patient had a tarry stool this morning. Patient oriented PPI. Dr. Cruz Calles also spoke to Dr. Shearer. This point was decided to raised the patient then in 24 hours. If remains stable possibly could be discharged. If any other clinical evidence of bleeding then patient could be transferred. Patient otherwise appears comfortable. Oral intake fair. This was conveyed to the family. Hemoglobin yesterday was 6.5. Did receive a unit of blood. October 01: Patient feeling well. No further bleeding. Hemoglobin stable. Discussed with patient. She will take a picture of 4 BM every day and send it to her daughter. As she cannot see very well. She'll follow-up with GI. He is being discharged on 2 L of oxygen. Lasix 20 mg. Manual blood pressure 112 systolic. Patient follow-up in GI and pulmonary. Discussion and discharge planning more than 35 minutes Past medical history to include: Hypertension, sinus cavity cancer radiation treatment 1989 at least 19 surgeries last one being in 2 years ago. MRI in March 2020 was negative, depression Social history: Lives alone., Smoked a pack a day for 40 years stopped 20 years ago. No alcohol. Physical examination: VITAL SIGNS: 98.2, 61, 20, 127/54, 87% on room air GENERAL: , Up in a chair awake, comfortable EYES: Left eye absent HEENT: External appearance of nose and ears normal, some facial asymmetry NECK: JVD not raised; masses not palpable. HEART: First and second heart sounds are normal; some edema present LUNGS: Rate normal Diminished breath sounds ABDOMEN: Soft, nontender, liver spleen not palpable, no masses palpable. PSYCH: Answering questions appropriately NEUROLOGICAL: Cranial nerves grossly intact; no facial asymmetry, power and sensation grossly intact, left eye absent INVESTIGATIONS, reviewed in the clinical context: October 01: Hemoglobin 9.3 potassium 4 creatinine 1.02 September 22: White count 6.3 hemoglobin 13.8 potassium 3.2 BUN 30 creatinine 1.10. Pro-calcitonin 0.12 September 21: White count 7.4 hemoglobin 14 sodium 148 potassium 4.7 creatinine 1.04. BUN 57 white count 38 2-D echocardiogram: EF 60-65%. Moderate concentric LVH. Severe pulmonary hypertension. White count 8.3 hemoglobin 16.7 platelets 203 ABG: PH 7.17, pCO2 88, pO2 57 Potassium 5. 49 creatinine 1.16 Troponin I 0.050 proBNP 5350 Influenza type A, influenza type B, RSV, COVID-19: Not detected EKG tracing personally reviewed by me-normal sinus rhythm. Chest x-ray film personally reviewed by me-pulmonary edema versus infiltrates chest CTA: Large pulmonary arteries. No PE. Coarse infiltrates. Atelectasis. Some elevation of right diaphragm. Assessment and plan -Probable pneumonia suspected gram-negative organism. : Improved Ceftriaxone 1 g every 12-discontinued . Procalcitonin 0.12. -Acute hypoxic and hypercapnic respiratory failure secondary to pneumonia and fluid overload: Improving BiPAP at night.2 L nasal cannula -Possibly sleep apnea syndrome and/or pickwickian syndrome. Using BiPAP at night -Acute COPD exacerbation and a previous smoker: Better IV Solu-Medrol 60 mg every 8-discontinued. Bronchodilators -Acute hypoxic hypercapnic encephalopathy: improved Follow clinically - pulmonary edema . IV Lasix now by mouth. 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 Down to 6.5. Has received a total of 3 units of bl ood -Severe pulmonary hypertension Possible VQ scan when patient more stable. -Metabolic alkalosis from volume contraction Received Diamox -Essential hypertension Toprol-XL 25 mg a day -Duodenal ulcer with stigmata of acute bleeding including a blood clot, with gastritis PPI Protonix 40 mg twice a day -Fungal esophagitis Diflucan -Depression Lexapro -Full code Disposition: Home Labs: CBC BMP in 5 days Plan - Discharge Summary Discharge Rx Participant: No New Discharge Prescriptions: New Fluconazole [Diflucan] 100 mg PO DAILY #14 tab Pantoprazole [Protonix] 40 mg PO BID #60 tab Amiodarone [Cordarone] 200 mg PO DIRECTED #60 tab Ipratropium-Albuterol Nebulize [Duoneb 0.5 mg-3 mg/3 ml Soln] 3 ml INHALATION TID #90 each Furosemide [Lasix] 20 mg PO DAILY@1400 #30 tab predniSONE 0 mg PO DIRECTED #9 tab Acetaminophen Tab [Tylenol] 500 mg PO Q6HR PRN tab PRN Reason: Fever And/ Or Pain Omeprazole [PriLOSEC] 40 mg PO AC-BRKFST #90 cap Continue Cholecalciferol [Vitamin D3 (25 Mcg = 1000 Iu)] 50 mcg PO DAILY Metoprolol Succinate (ER) [Toprol XL] 25 mg PO DAILY Berderine Supplement 1,000 mg PO DAILY Selenium 200 mcg PO HS Escitalopram [Lexapro] 20 mg PO HS Cranberry(Unknown) 1 tab PO DAILY Discontinued Aspirin EC [Ecotrin Low Dose] 81 mg PO DAILY Discharge Medication List Cholecalciferol [Vitamin D3 (25 Mcg = 1000 Iu)] 50 mcg PO DAILY 08/02/20 [History] Escitalopram [Lexapro] 20 mg PO HS 08/02/20 [History] Selenium 200 mcg PO HS 08/02/20 [History] Berderine Supplement 1,000 mg PO DAILY 07/16/21 [History] Metoprolol Succinate (ER) [Toprol XL] 25 mg PO DAILY 07/16/21 [History] Cranberry(Unknown) 1 tab PO DAILY 09/19/21 [History] Acetaminophen Tab [Tylenol] 500 mg PO Q6HR PRN tab 10/01/21 [Rx] Amiodarone [Cordarone] 200 mg PO DIRECTED #60 tab 10/01/21 [Rx] Fluconazole [Diflucan] 100 mg PO DAILY #14 tab 10/01/21 [Rx] Furosemide [Lasix] 20 mg PO DAILY@1400 #30 tab 10/01/21 [Rx] Ipratropium-Albuterol Nebulize [Duoneb 0.5 mg-3 mg/3 ml Soln] 3 ml INHALATION TID #90 each 10/01/21 [Rx] Omeprazole [PriLOSEC] 40 mg PO AC-BRKFST #90 cap 10/01/21 [Rx] Pantoprazole [Protonix] 40 mg PO BID #60 tab 10/01/21 [Rx] predniSONE 0 mg PO DIRECTED #9 tab 10/01/21 [Rx] Follow up Appointment(s)/Referral(s): Juan Ramirez MD [STAFF PHYSICIAN] - 10 Days (please call office when open to make follow up appointmnet) [place] [NON-STAFF] - 1-2 Days [facility] [NON-STAFF] - Alexa Calles MD [STAFF PHYSICIAN] - 2 Weeks (please call office when open to make follow up appointment) Len Tran MD [Primary Care Provider] - 1-2 days (please call office when open to make follow up appointment) Activity/Diet/Wound Care/Special Instructions: cbc - 5 days Patient will require 4L home O2 r/t COPD. Discharge Disposition: HOME SELF-CARE
== END 2021-10-01 15:29 | disposition home or self-care (01) | DRG 177 ==
LOC: EC 17:40 → 3SCARD 22:32 → 2SICU 09-20 09:50 → 5NMEDONC 09-28 15:37 → 2SICU 09-29 11:21 → 3SCARD 09-30 04:28
PROVIDERS: ADMIT Hospitalist; ATTEND Hospitalist
PROC: 5A09457 Assistance with Respiratory Ventilation, 24-96 Consecutive Hours, Continuous Positive Airway Pressure (ICD-10-PCS; 2021-09-19)
PROC: 5A0935A Assistance with Respiratory Ventilation, Less than 24 Consecutive Hours, High Flow/Velocity Cannula (ICD-10-PCS; 2021-09-21)
PROC: 05HD33Z Insertion of Infusion Device into Right Cephalic Vein, Percutaneous Approach (ICD-10-PCS; 2021-09-23)
PROC: 0DB58ZX Excision of Esophagus, Via Natural or Artificial Opening Endoscopic, Diagnostic (ICD-10-PCS; principal; 2021-09-25 12:00)
PROC: 0DB78ZX Excision of Stomach, Pylorus, Via Natural or Artificial Opening Endoscopic, Diagnostic (ICD-10-PCS; principal; 2021-09-25 12:00)
PROC: 30233N1 Transfusion of Nonautologous Red Blood Cells into Peripheral Vein, Percutaneous Approach (ICD-10-PCS; 2021-09-29)
DX: J15.6 Pneumonia due to other Gram-negative bacteria (principal); J96.22 Acute and chronic respiratory failure with hypercapnia; J96.21 Acute and chronic respiratory failure with hypoxia; K26.4 Chronic or unspecified duodenal ulcer with hemorrhage; K29.71 Gastritis, unspecified, with bleeding; B37.81 Candidal esophagitis; D62 Acute posthemorrhagic anemia; E87.0 Hyperosmolality and hypernatremia; E87.3 Alkalosis; G93.1 Anoxic brain damage, not elsewhere classified; I48.20 Chronic atrial fibrillation, unspecified; J44.0 Chronic obstructive pulmonary disease with (acute) lower respiratory infection; J44.1 Chronic obstructive pulmonary disease with (acute) exacerbation; J98.11 Atelectasis; Z68.41 Body mass index [BMI] 40.0-44.9, adult; E66.2 Morbid (severe) obesity with alveolar hypoventilation; Z87.891 Personal history of nicotine dependence; Z90.01 Acquired absence of eye; E66.9 Obesity, unspecified; I27.20 Pulmonary hypertension, unspecified; F32.A Depression, unspecified; I11.0 Hypertensive heart disease with heart failure; Z20.822 Contact with and (suspected) exposure to COVID-19; I50.9 Heart failure, unspecified; M19.90 Unspecified osteoarthritis, unspecified site; Z60.2 Problems related to living alone; Z85.22 Personal history of malignant neoplasm of nasal cavities, middle ear, and accessory sinuses; D75.1 Secondary polycythemia; E87.6 Hypokalemia; R77.8 Other specified abnormalities of plasma proteins; F41.9 Anxiety disorder, unspecified; K57.90 Diverticulosis of intestine, part unspecified, without perforation or abscess without bleeding; Z79.82 Long term (current) use of aspirin; Z79.899 Other long term (current) drug therapy; Z80.3 Family history of malignant neoplasm of breast; Z85.828 Personal history of other malignant neoplasm of skin; Z92.3 Personal history of irradiation; Z98.890 Other specified postprocedural states; Z90.49 Acquired absence of other specified parts of digestive tract; Z88.5 Allergy status to narcotic agent
CPT/HCPCS: 36410; 36415; 36600; 43239; 45378; 71045; 71275; 76937; 80048; 80053; 81001; 82805; 83605; 83735; 83880; 84145; 84484; 85025; 85027; 85379; 85610; 85730; 86850; 86900; 86901; 86920; 87636; 88305; 93005; 93306; 94640; 94660; 94760; 96365; 96367; 96372; 96375; 96376; 99291